=== PATIENT | male | born 1940 | race Caucasian/White ===

== ENCOUNTER → 2021-10-23 14:45 | Outpatient (CLI) | payer MEDICARE, OTHER, SELFPAY ==
[2021-10-23 16:02] LABS: Hemoglobin A1C% w Est Avg Glu 5.7 % (4.0-6.0)
== END ==
PROVIDERS: PCP Family Medicine; Referring Provider Family Medicine; Visit Provider Family Medicine
DX: R73.9 Hyperglycemia, unspecified (principal)
CPT/HCPCS: 36415; 83036

== ENCOUNTER → 2021-10-30 07:15 | Outpatient (CLI) | payer MEDICARE, OTHER, SELFPAY ==
--- NOTE | 2021-10-30 | DI.MRI.S_ITS ---
PROCEDURE: MR HEAD/BRAIN WO/W CON INDICATIONS: Malignant melanoma of scalp and neck TECHNIQUE: Noncontrast axial T1 spin echo, axial T2 fast spin echo, sagittal and axial FLAIR, coronal T2 fast spin echo, axial gradient echo, axial diffusion and ADC through the brain. After the administration of contrast, axial and coronal T1 spin echo with fat saturation through the brain. COMPARISON: None. FINDINGS: Image quality: Excellent. CSF spaces: Basal cisterns are patent. No extra-axial fluid collections. Ventricles are normal in size and shape. Brain: No midline shift. No intracranial bleeds or masses. No abnormal intracranial enhancement. There is cerebral volume loss for age. Numerous foci of T2 weighted white matter hyperintensity can be seen. The brainstem appears normal. Diffusion-weighted images demonstrate no acute ischemic insults. No chronic ischemic insults. Normal intravascular flow voids are present. Skull and face: A 7 mm enhancing scalp lesion can be seen within the left superior temporal region, as on series 13, image 146. Calvarial marrow is normal in signal. Orbits appear normal. Sinuses: Sinuses and mastoids appear clear. IMPRESSION: No intracranial masses or abnormal enhancement can be seen. Enhancing scalp lesion can be seen involving the left superior temporal region. Please correlate with the patient's known melanoma. Brain parenchymal volume loss is seen. Numerous foci of T2 weighted hyperintensity can be seen within white matter. In a patient of this age these are statistically most likely related to chronic small vessel ischemic change. Dictated by: John Escalera M.D. on 10/30/2021 at 8:58 Approved by: John Escalera M.D. on 10/30/2021 at 9:01
== END ==
PROVIDERS: PCP Family Medicine; Referring Provider Internal Medicine Hematology & Oncology; Visit Provider Internal Medicine Hematology & Oncology
DX: C43.4 Malignant melanoma of scalp and neck (principal)
CPT/HCPCS: 70553

== ENCOUNTER → 2021-12-03 13:17 | Outpatient (CLI) | payer MEDICARE, OTHER, SELFPAY ==
[2021-12-03 14:27] LABS: Influenza A - CEPHEID Flu A NEGATIVE (NEGATIVE); Influenza B - CEPHEID Flu B NEGATIVE (NEGATIVE)
[2021-12-03 14:31] LABS: COVID-19 CEPHEID PCR (VTM/NP) POSITIVE (Negative)
[2021-12-24 09:55] LABS: Thyroid Stimulating Hormone 0.659 uIU/mL (0.47-4.68)
== END ==
PROVIDERS: PCP Family Medicine; Referring Provider Internal Medicine Medical Oncology; Visit Provider Internal Medicine Medical Oncology
DX: C43.9 Malignant melanoma of skin, unspecified (principal); E03.2 Hypothyroidism due to medicaments and other exogenous substances
CPT/HCPCS: 0240U; C9803

== ENCOUNTER 2022-02-09 13:19 | Emergency (ER) | payer MEDICARE, OTHER, SELFPAY ==
[2022-02-09] VITALS (82 sets, daily range): BP systolic 82–150; BP diastolic 43–85; PULSE 51–131; RESP 0–39; TEMP 37.1; O2SAT 59–98; BMI 26.8
--- NOTE | 2022-02-09 13:49 | PC.NURSE ---
Pt is in immunotherapy of metastatic melanoma.
[2022-02-09 14:04] LABS: Add Manual Diff / Slide Review NO; Basophils Absolute Auto 100 /uL (0-100); Basophils Percent Auto 0.5 % (0-2); Eosinophils Absolute Auto 200 /uL (0-450); Eosinophils Percent Auto 1.3 % (2-4); Hematocrit 42.7 % (41-53); Hemoglobin 14.5 g/dL (13.5-17.5); Lymphocytes Absolute Auto 1200 /uL (1100-4500); Lymphocytes Percent Auto 7.1 % (25-40); Mean Corpuscular HGB Conc 34.1 % (30-36); Mean Corpuscular Hemoglobin 29.5 PG (26-34); Mean Corpuscular Volume 86.6 fL (80-100); Monocytes Absolute Auto 300 /uL (0-900); Monocytes Percent Auto 2.1 % (3-14); Neutrophils Absolute Auto 14500 /uL (1500-7000); Platelet Count 272 X10^3/uL (150-400); Red Blood Cell Count 4.93 X10^6/uL (4.5-5.9); Red Cell Distribution Width 14.3 % (11.6-14.8); White Blood Cell Count 16.3 X10^3/uL (4.5-11.0)
[2022-02-09 14:21] LABS: Alanine Aminotransferase 372 IU/L (<50); Albumin 4.2 g/dL (3.5-5.0); Albumin Globulin Ratio 1.2 (1.0-2.8); Alkaline Phosphatase 362 U/L (38-126); Aspartate Aminotransferase 302 IU/L (17-59); BUN Creatinine Ratio 19.1 (6-22); Bilirubin Total 4.5 mg/dL (0.2-1.3); Blood Urea Nitrogen 18 mg/dL (9-20); Calcium 9.5 mg/dL (8.4-10.2); Carbon Dioxide 28 mmol/L (22-32); Chloride 92 mmol/L (98-107); Estimated Glomerular Filt Rate > 60 mL/min (>60); Globulin 3.4 g/dL (1.7-4.1); Glucose 98 mg/dL (80-110); HEMOLYSIS < 15 (0-50); Sodium 132 mmol/L (137-145); Total Protein 7.6 g/dL (6.3-8.2)
[2022-02-09 14:41] LABS: Lipase 27218 U/L (23-300)
--- NOTE | 2022-02-09 14:56 | DI.MRI.S_ITS ---
PROCEDURE: MR ABDOMEN WO CON INDICATIONS: elevated bili with pancreatitis TECHNIQUE: Coronal HASTE through the abdomen, axial 2-D FLASH in- and [id number], and breath-hold T2 FSE with fat saturation through the biliary system and pancreas. Oblique coronal and axial thin-slice HASTE, radial thick-slab HASTE centered on the extrahepatic bile ducts. COMPARISON: [facility], [place], [place] PET CT FUSION WHOLE BODY, 10/08/2021, 10:06. [facility], CT, CT CHEST ABDOMEN PELVIS WITH CONTRAST, 09/08/2021, 10:21. [facility], [place], US ABDOMEN LIMITED, 02/09/2022, 15:35. FINDINGS: Image quality: There is motion artifact limiting evaluation. Pancreas and biliary system: There is peripancreatic edema and fluid along the pancreatic head and uncinate process as well as the pancreatic body consistent with acute pancreatitis. Evaluation for necrosis limited in the absence of intravenous contrast. No pancreatic duct dilatation. No discrete peripancreatic fluid collections. There is intra and extrahepatic biliary ductal dilatation, with the common bile duct measuring up to 1.1 cm. The duct tapers distally to the ampulla Vater where there is a small oval low signal intensity filling defect consistent with an obstructing common duct stone measuring up to 0.4 cm. Numerous gallstones are demonstrated within the gallbladder with mild gallbladder wall thickening. There is a small amount amount of pericholecystic fluid. Cholecystitis cannot be excluded. Other solid organs: Noncontrast evaluation of the liver demonstrates 2 small cysts within the right hepatic lobe. Spleen is normal in size. No adrenal nodules. Kidneys demonstrate no hydronephrosis. Nodes and vessels: No retroperitoneal or mesenteric adenopathy by size criteria. Aorta and inferior vena cava are normal in size. Bowel and peritoneum: Visualized bowel loops are normal in caliber. There is a small amount of intraperitoneal free fluid. Lung bases: No basal pleural effusions. Heart size is normal. There is a small hiatal hernia. Bones and soft tissues: No ventral hernias. Bone marrow is of normal overall signal. IMPRESSION: 1. Peripancreatic edema and fluid consistent with acute pancreatitis, likely interstitial edematous pancreatitis. Evaluation for necrosis is limited in the absence of intravenous contrast. No pancreatic duct dilatation or acute peripancreatic fluid collections. 2. Biliary ductal dilatation with an obstructing stone demonstrated at the ampulla of Vater. 3. Cholelithiasis with gallbladder wall thickening and pericholecystic fluid suspicious for acute cholecystitis. Dictated by: Cornelius Georges M.D. on 02/09/2022 at 20:21 Approved by: Cornelius Georges M.D. on 02/09/2022 at 20:29
--- NOTE | 2022-02-09 14:56 | DI.US.S_ITS ---
PROCEDURE: US ABDOMEN LIMITED INDICATIONS: RIGHT UPPER QUADRANT PAIN AND NAUSEA TECHNIQUE: Real-time scanning was performed of the abdominal and retroperitoneal organs, with image documentation. COMPARISON: None. FINDINGS: Liver: Liver is normal in size and homogeneous in echotexture. Gallbladder: The gallbladder wall measures 2 mm in diameter. Multiple mobile stones are present within the gallbladder fundus. No pericholecystic fluid. Biliary ducts: There is intrahepatic biliary ductal dilatation. The common bile duct measures up to 1.2 cm in diameter. Pancreas: The pancreas is poorly visualized. IMPRESSION: Cholelithiasis. Although no discrete calculi are visualized within the biliary tree, there is intra and extrahepatic biliary ductal dilatation raising the suspicion for choledocholithiasis. No gallbladder wall thickening or pericholecystic fluid to suggest acute cholecystitis. Dictated by: Radha Rosales M.D. on 02/09/2022 at 16:59 Approved by: Radha Rosales M.D. on 02/09/2022 at 17:02
[2022-02-09 15:11] LABS: Creatine Kinase 58 U/L (55-170); Lactate (Lactic Acid) 1.9 mmol/L (0.7-2.1)
--- NOTE | 2022-02-09 15:17 | ED.ABDPAIN ---
HPI - Abdominal Pain <Leslee Pop DO - Last Filed: 02/16/22 19:05> General Chief Complaint: Abdominal Pain Stated Complaint: Upper ABD pain, Loss of energy, Nausea Time Seen by Provider: 02/09/22 15:18 Source: patient Mode of arrival: Ambulatory History of Present Illness HPI narrative: Patient is an 81-year-old male history of melanoma currently being treated with immunotherapy, atrial fibrillation on Pradaxa presenting today with abdominal pain. He says it started abruptly last night but has gotten significantly worse. He vomited once is in the waiting room. He says that occasionally radiates up into his chest. He really denies any shortness of breath. No prior abdominal surgeries. He does describe as stabbing pain in epigastric region Related Data Home Medications Medication Instructions Recorded Confirmed atenolol 50 mg tablet 50 mg PO DAILY 10/23/21 02/16/22 dabigatran etexilate 150 mg 150 mg PO BID 10/23/21 02/16/22 capsule (Pradaxa) lisinopril 10 10 tab PO DAILY 10/23/21 02/16/22 mg-hydrochlorothiazide 12.5 mg tablet sildenafil 25 mg tablet 20 mg PO DAILY PRN Sexual Activity 10/23/21 02/16/22 Previous Rx's Medication Instructions Recorded atorvastatin 40 mg tablet 40 mg PO DAILY #90 tabs 10/23/21 furosemide 20 mg tablet (Lasix) See Rx Instructions PO DAILY #20 02/16/22 tabs pantoprazole 40 mg tablet,delayed 40 mg PO DAILY #90 tabs 02/16/22 release Allergies Allergy/AdvReac Type Severity Reaction Status Date / Time No Known Drug Allergies Allergy Verified 02/09/22 13:46 Review of Systems <Leslee Pop DO - Last Filed: 02/16/22 19:05> Review of Systems Narrative: GENERAL: Denies chills, fatigue, malaise, fever, sweats, travel HEENT: Denies sinus pain, ear pain, sore throat, difficulty swallowing, neck pain RESPIRATORY: Denies dyspnea, cough, wheezing, hemoptysis, sputum. CARDIOVASCULAR: Denies chest pain, palpitations, orthopnea, edema GASTROINTESTINAL: See HPI : Denies dysuria, frequency, incontinence, hematuria, urinary retention, flank pain. MUSCULOSKELETAL: Denies weakness, joint pain, or bony pain SKIN: No rash, no erythema, no pruritus NEUROLOGIC: Denies weakness, dizziness, headache, numbness, change in speech, confusion PSYCHIATRIC: No concerning psychosocial issues. 12 point review of systems is negative except for those stated above and HPI Patient History <Leslee Pop DO - Last Filed: 02/16/22 19:05> Medical History Hyperlipidemia Hypertension Metastatic melanoma Social History Smoking Status: Never smoker Smoking Status: Never smoker alcohol intake frequency: 0-2 drinks per day Substance Use Type: does not use Exam <Leslee Pop DO - Last Filed: 02/16/22 19:05> Initial Vital Signs Initial Vital Signs: Vital Signs Temperature 98.8 F 02/09/22 13:41 Pulse Rate 81 02/09/22 13:41 Respiratory Rate 16 02/09/22 13:41 Blood Pressure 113/58 L 02/09/22 13:41 Pulse Oximetry 94 02/09/22 13:41 Oxygen Delivery Method 02/09/22 13:41 GENERAL: Alert 81-year-old male appears mildly uncomfortable HEENT: Head atraumatic,EOMI, pupils reactive, face symmetric, moist mucous membranes CARDIOVASCULAR: Regular rate and rhythm without murmurs, rubs or gallops. RESPIRATORY: Breath sounds equal bilaterally, no wheezes rales or rhonchi. ABDOMEN: Soft, tender epigastric pain minimal right upper quadrant EXTREMITIES: Normal range of motion, no clubbing or edema. Neurovascularly intact NEUROLOGICAL: Alert and oriented x4.Normal gait and speech. SKIN: Warm, dry, no laceration, no petechiae, no rashes or lesions. <Prem Mckeon DO - Last Filed: 02/12/22 13:00> Initial Vital Signs Initial Vital Signs: Vital Signs Temperature 98.8 F 02/09/22 13:41 Pulse Rate 81 02/09/22 13:41 Respiratory Rate 16 02/09/22 13:41 Blood Pressure 113/58 L 02/09/22 13:41 Pulse Oximetry 94 02/09/22 13:41 Oxygen Delivery Method 02/09/22 13:41 <Tran Nieves MD - Last Filed: 02/11/22 17:05> Initial Vital Signs Initial Vital Signs: Vital Signs Temperature 98.8 F 02/09/22 13:41 Pulse Rate 81 02/09/22 13:41 Respiratory Rate 16 02/09/22 13:41 Blood Pressure 113/58 L 02/09/22 13:41 Pulse Oximetry 94 02/09/22 13:41 Oxygen Delivery Method 02/09/22 13:41 Course <Leslee Pop DO - Last Filed: 02/16/22 19:05> Orders Ordered: Discontinued Medications Diltiazem HCl (Diltiazem 5 Mg/Ml Sdv) 10 mg IV NOW ONE Stop: 02/09/22 16:07 Last Admin: 02/09/22 16:10 Dose: 10 mg Documented By: NR Diphenhydramine HCl (Diphenhydramine 50 Mg/Ml Vial) 25 mg IV NOW ONE Stop: 02/11/22 04:40 Last Admin: 02/11/22 04:41 Dose: 25 mg Documented By: NOA Enoxaparin Sodium (Enoxaparin 40 Mg/0.4 Ml Syringe) 40 mg SUBCUT DAILY [facility] Enoxaparin Sodium (Enoxaparin 40 Mg/0.4 Ml Syringe) 85 mg 1 mg/kg (85 mg) SUBCUT BID KAMI Stop: 02/10/22 21:00 Enoxaparin Sodium (Enoxaparin 100 Mg/Ml Syringe) 85 mg SUBCUT BID [facility] Last Admin: 02/11/22 09:03 Dose: 85 mg Documented By: Admin: 02/10/22 23:22 Dose: 85 mg Documented By: PARIS Fentanyl (Fentanyl 100 Mcg/2 Ml Inj) 50 mcg IV NOW ONE Stop: 02/11/22 06:16 Last Admin: 02/11/22 06:19 Dose: 50 mcg Documented By: PARIS Hydromorphone HCl (Hydromorphone 0.5 Mg Inj) 0.5 mg IV Q15MIN PRN PRN Reason: Pain, Sodium Chloride (Normal Saline 0.9%) 1,000 mls @ 1,000 mls/hr IV BOLUS ONE Stop: 02/09/22 15:59 Last Infusion: 02/09/22 17:27 Dose: 0 mls/hr Documented By: Admin: 02/09/22 15:23 Dose: 1,000 mls/hr Documented By: NR Piperacillin Sod/Tazobactam (Sod 4.5 gm/ Sodium Chloride) 100 mls @ 200 mls/hr IV NOW ONE Stop: 02/09/22 18:10 Last Infusion: 02/09/22 20:30 Dose: 0 mls/hr Documented By: Admin: 02/09/22 18:49 Dose: 200 mls/hr Documented By: GONZALO Sodium Chloride (Normal Saline 0.9%) 2,544.66 mls @ 848.22 mls/hr 30 ml/kg infuse over 3 hr (2544.66 ml) IV NOW ONE Stop: 02/09/22 21:09 Last Infusion: 02/10/22 08:18 Dose: 0 mls/hr Documented By: Admin: 02/09/22 18:50 Dose: 848.22 mls/hr Documented By: GONZALO Piperacillin Sod/Tazobactam (Sod 3.375 gm/ Sodium Chloride) 100 mls @ 25 mls/hr IV Q8H KAMI Last Infusion: 02/11/22 16:05 Dose: 0 mls/hr Documented By: Admin: 02/11/22 11:59 Dose: 25 mls/hr Documented By: Infusion: 02/11/22 09:02 Dose: 0 mls/hr Documented By: Admin: 02/11/22 04:42 Dose: 25 mls/hr Documented By: Infusion: 02/11/22 00:21 Dose: 0 mls/hr Documented By: Admin: 02/10/22 19:51 Dose: 25 mls/hr Documented By: Infusion: 02/10/22 15:40 Dose: 0 mls/hr Documented By: Admin: 02/10/22 11:41 Dose: 25 mls/hr Documented By: Infusion: 02/10/22 08:14 Dose: 0 mls/hr Documented By: Admin: 02/10/22 03:43 Dose: 25 mls/hr Documented By: PARIS Heparin Sodium/Dextrose (Heparin Drip) 25,000 unit in 500 mls @ 20 mls/hr IV CONT KAMI; Protocol Last Titration: 02/10/22 17:25 Dose: 0 units/hr, 0 mls/hr Documented By: AMIsaac Admin: 02/10/22 09:51 Dose: 1,000 units/hr, 20 mls/hr Documented By: NR Sodium Chloride (Normal Saline 0.9%) 1,000 mls @ 150 mls/hr IV CONT KAMI Last Infusion: 02/11/22 11:01 Dose: 0 mls/hr Documented By: Admin: 02/11/22 04:49 Dose: 150 mls/hr Documented By: Infusion: 02/10/22 18:32 Dose: 0 mls/hr Documented By: Infusion: 02/10/22 14:24 Dose: 150 mls/hr Documented By: Admin: 02/10/22 11:42 Dose: 150 mls/hr Documented By: NR Sodium Chloride (Normal Saline 0.9%) 1,000 mls @ 1,000 mls/hr IV BOLUS ONE Stop: 02/10/22 15:08 Last Infusion: 02/10/22 16:30 Dose: 0 mls/hr Documented By: FLFabiola Admin: 02/10/22 14:25 Dose: 1,000 mls/hr Documented By: NR Sodium Chloride (Normal Saline 0.9%) 1,000 mls @ 150 mls/hr IV CONT KAMI Last Admin: 02/11/22 07:25 Dose: Not Given Documented By: NIDIA Lorazepam (Lorazepam 2 Mg/Ml Inj) 0.5 mg IV NOW ONE Stop: 02/09/22 16:04 Last Admin: 02/09/22 17:22 Dose: 0.5 mg Documented By: GONZALO Morphine Sulfate (Morphine 2 Mg/Ml Inj) 2 mg IV NOW ONE Stop: 02/09/22 15:30 Last Admin: 02/09/22 15:35 Dose: 2 mg Documented By: GONZALO Morphine Sulfate (Morphine 2 Mg/Ml Inj) 2 mg IV NOW ONE Stop: 02/10/22 14:10 Last Admin: 02/10/22 14:41 Dose: 2 mg Documented By: GONZALO Ondansetron HCl (Ondansetron 4 Mg/2 Ml Inj) 4 mg IV NOW ONE Stop: 02/09/22 15:18 Last Admin: 02/09/22 15:22 Dose: 4 mg Documented By: GONZALO Vital Signs Vital signs: Vital Signs - 8 hr 02/11/22 09:15 02/11/22 09:30 02/11/22 09:45 Temperature Pulse Rate 92 H 92 H 96 H Respiratory Rate 15 17 23 Blood Pressure Pulse Oximetry Oxygen Delivery Method 02/11/22 10:00 02/11/22 10:00 02/11/22 10:15 Temperature Pulse Rate 81 87 Respiratory Rate 18 18 Blood Pressure 126/61 Pulse Oximetry Oxygen Delivery Method 02/11/22 10:30 02/11/22 10:45 02/11/22 11:00 Temperature Pulse Rate 89 79 89 Respiratory Rate 17 17 22 Blood Pressure Pulse Oximetry Oxygen Delivery Method 02/11/22 11:15 02/11/22 11:27 02/11/22 11:27 Temperature 97.5 F L Pulse Rate 90 97 H Respiratory Rate 16 26 H Blood Pressure 112/76 Pulse Oximetry 95 Oxygen Delivery Method 02/11/22 11:46 02/11/22 12:00 02/11/22 12:15 Temperature Pulse Rate 92 H 88 87 Respiratory Rate 33 H 29 H 18 Blood Pressure Pulse Oximetry 94 97 96 Oxygen Delivery Method 02/11/22 12:30 02/11/22 12:45 02/11/22 13:00 Temperature Pulse Rate 86 94 H 93 H Respiratory Rate 17 41 H 14 Blood Pressure Pulse Oximetry 96 96 95 Oxygen Delivery Method Room Air 02/11/22 13:15 02/11/22 13:30 02/11/22 13:45 Temperature Pulse Rate 89 87 98 H Respiratory Rate 14 16 32 H Blood Pressure Pulse Oximetry 96 96 96 Oxygen Delivery Method 02/11/22 14:00 02/11/22 14:15 02/11/22 14:30 Temperature Pulse Rate 90 91 H 88 Respiratory Rate 16 19 15 Blood Pressure Pulse Oximetry 96 97 96 Oxygen Delivery Method 02/11/22 14:45 02/11/22 15:00 02/11/22 15:15 Temperature Pulse Rate 89 89 92 H Respiratory Rate 16 17 26 H Blood Pressure Pulse Oximetry 96 96 98 Oxygen Delivery Method 02/11/22 15:30 02/11/22 15:45 02/11/22 15:58 Temperature Pulse Rate 82 91 H 91 H Respiratory Rate 18 17 24 Blood Pressure Pulse Oximetry 98 98 98 Oxygen Delivery Method 02/11/22 15:58 Temperature 98.6 F Pulse Rate Respiratory Rate Blood Pressure 149/82 H Pulse Oximetry Oxygen Delivery Method <Prem Mckeon, - Last Filed: 02/12/22 13:00> Orders Ordered: Discontinued Medications Diltiazem HCl (Diltiazem 5 Mg/Ml Sdv) 10 mg IV NOW ONE Stop: 02/09/22 16:07 Last Admin: 02/09/22 16:10 Dose: 10 mg Documented By: NR Diphenhydramine HCl (Diphenhydramine 50 Mg/Ml Vial) 25 mg IV NOW ONE Stop: 02/11/22 04:40 Last Admin: 02/11/22 04:41 Dose: 25 mg Documented By: NOA Enoxaparin Sodium (Enoxaparin 40 Mg/0.4 Ml Syringe) 40 mg SUBCUT DAILY [facility] Enoxaparin Sodium (Enoxaparin 40 Mg/0.4 Ml Syringe) 85 mg 1 mg/kg (85 mg) SUBCUT BID [facility] Stop: 02/10/22 21:00 Enoxaparin Sodium (Enoxaparin 100 Mg/Ml Syringe) 85 mg SUBCUT BID [facility] Last Admin: 02/11/22 09:03 Dose: 85 mg Documented By: Admin: 02/10/22 23:22 Dose: 85 mg Documented By: PARIS Fentanyl (Fentanyl 100 Mcg/2 Ml Inj) 50 mcg IV NOW ONE Stop: 02/11/22 06:16 Last Admin: 02/11/22 06:19 Dose: 50 mcg Documented By: PARIS Hydromorphone HCl (Hydromorphone 0.5 Mg Inj) 0.5 mg IV Q15MIN PRN PRN Reason: Pain, Sodium Chloride (Normal Saline 0.9%) 1,000 mls @ 1,000 mls/hr IV BOLUS ONE Stop: 02/09/22 15:59 Last Infusion: 02/09/22 17:27 Dose: 0 mls/hr Documented By: Admin: 02/09/22 15:23 Dose: 1,000 mls/hr Documented By: GONZALO Piperacillin Sod/Tazobactam (Sod 4.5 gm/ Sodium Chloride) 100 mls @ 200 mls/hr IV NOW ONE Stop: 02/09/22 18:10 Last Infusion: 02/09/22 20:30 Dose: 0 mls/hr Documented By: Admin: 02/09/22 18:49 Dose: 200 mls/hr Documented By: GONAZLO Sodium Chloride (Normal Saline 0.9%) 2,544.66 mls @ 848.22 mls/hr 30 ml/kg infuse over 3 hr (2544.66 ml) IV NOW ONE Stop: 02/09/22 21:09 Last Infusion: 02/10/22 08:18 Dose: 0 mls/hr Documented By: Admin: 02/09/22 18:50 Dose: 848.22 mls/hr Documented By: GONZALO Piperacillin Sod/Tazobactam (Sod 3.375 gm/ Sodium Chloride) 100 mls @ 25 mls/hr IV Q8H KAMI Last Infusion: 02/11/22 16:05 Dose: 0 mls/hr Documented By: Admin: 02/11/22 11:59 Dose: 25 mls/hr Documented By: Infusion: 02/11/22 09:02 Dose: 0 mls/hr Documented By: Admin: 02/11/22 04:42 Dose: 25 mls/hr Documented By: Infusion: 02/11/22 00:21 Dose: 0 mls/hr Documented By: Admin: 02/10/22 19:51 Dose: 25 mls/hr Documented By: Infusion: 02/10/22 15:40 Dose: 0 mls/hr Documented By: Admin: 02/10/22 11:41 Dose: 25 mls/hr Documented By: Infusion: 02/10/22 08:14 Dose: 0 mls/hr Documented By: Admin: 02/10/22 03:43 Dose: 25 mls/hr Documented By: PARIS Heparin Sodium/Dextrose (Heparin Drip) 25,000 unit in 500 mls @ 20 mls/hr IV CONT KAMI; Protocol Last Titration: 02/10/22 17:25 Dose: 0 units/hr, 0 mls/hr Documented By: Admin: 02/10/22 09:51 Dose: 1,000 units/hr, 20 mls/hr Documented By: GONZALO Sodium Chloride (Normal Saline 0.9%) 1,000 mls @ 150 mls/hr IV CONT KAMI Last Infusion: 02/11/22 11:01 Dose: 0 mls/hr Documented By: Admin: 02/11/22 04:49 Dose: 150 mls/hr Documented By: Infusion: 02/10/22 18:32 Dose: 0 mls/hr Documented By: Infusion: 02/10/22 14:24 Dose: 150 mls/hr Documented By: Admin: 02/10/22 11:42 Dose: 150 mls/hr Documented By: NR Sodium Chloride (Normal Saline 0.9%) 1,000 mls @ 1,000 mls/hr IV BOLUS ONE Stop: 02/10/22 15:08 Last Infusion: 02/10/22 16:30 Dose: 0 mls/hr Documented By: Admin: 02/10/22 14:25 Dose: 1,000 mls/hr Documented By: NR Sodium Chloride (Normal Saline 0.9%) 1,000 mls @ 150 mls/hr IV CONT KAMI Last Admin: 02/11/22 07:25 Dose: Not Given Documented By: NIDIA Lorazepam (Lorazepam 2 Mg/Ml Inj) 0.5 mg IV NOW ONE Stop: 02/09/22 16:04 Last Admin: 02/09/22 17:22 Dose: 0.5 mg Documented By: GONZALO Morphine Sulfate (Morphine 2 Mg/Ml Inj) 2 mg IV NOW ONE Stop: 02/09/22 15:30 Last Admin: 02/09/22 15:35 Dose: 2 mg Documented By: GONZALO Morphine Sulfate (Morphine 2 Mg/Ml Inj) 2 mg IV NOW ONE Stop: 02/10/22 14:10 Last Admin: 02/10/22 14:41 Dose: 2 mg Documented By: NR Ondansetron HCl (Ondansetron 4 Mg/2 Ml Inj) 4 mg IV NOW ONE Stop: 02/09/22 15:18 Last Admin: 02/09/22 15:22 Dose: 4 mg Documented By: GONZALO Vital Signs Vital signs: Vital Signs - 8 hr 02/11/22 09:15 02/11/22 09:30 02/11/22 09:45 Temperature Pulse Rate 92 H 92 H 96 H Respiratory Rate 15 17 23 Blood Pressure Pulse Oximetry Oxygen Delivery Method 02/11/22 10:00 02/11/22 10:00 02/11/22 10:15 Temperature Pulse Rate 81 87 Respiratory Rate 18 18 Blood Pressure 126/61 Pulse Oximetry Oxygen Delivery Method 02/11/22 10:30 02/11/22 10:45 02/11/22 11:00 Temperature Pulse Rate 89 79 89 Respiratory Rate 17 17 22 Blood Pressure Pulse Oximetry Oxygen Delivery Method 02/11/22 11:15 02/11/22 11:27 02/11/22 11:27 Temperature 97.5 F L Pulse Rate 90 97 H Respiratory Rate 16 26 H Blood Pressure 112/76 Pulse Oximetry 95 Oxygen Delivery Method 02/11/22 11:46 02/11/22 12:00 02/11/22 12:15 Temperature Pulse Rate 92 H 88 87 Respiratory Rate 33 H 29 H 18 Blood Pressure Pulse Oximetry 94 97 96 Oxygen Delivery Method 02/11/22 12:30 02/11/22 12:45 02/11/22 13:00 Temperature Pulse Rate 86 94 H 93 H Respiratory Rate 17 41 H 14 Blood Pressure Pulse Oximetry 96 96 95 Oxygen Delivery Method Room Air 02/11/22 13:15 02/11/22 13:30 02/11/22 13:45 Temperature Pulse Rate 89 87 98 H Respiratory Rate 14 16 32 H Blood Pressure Pulse Oximetry 96 96 96 Oxygen Delivery Method 02/11/22 14:00 02/11/22 14:15 02/11/22 14:30 Temperature Pulse Rate 90 91 H 88 Respiratory Rate 16 19 15 Blood Pressure Pulse Oximetry 96 97 96 Oxygen Delivery Method 02/11/22 14:45 02/11/22 15:00 02/11/22 15:15 Temperature Pulse Rate 89 89 92 H Respiratory Rate 16 17 26 H Blood Pressure Pulse Oximetry 96 96 98 Oxygen Delivery Method 02/11/22 15:30 02/11/22 15:45 02/11/22 15:58 Temperature Pulse Rate 82 91 H 91 H Respiratory Rate 18 17 24 Blood Pressure Pulse Oximetry 98 98 98 Oxygen Delivery Method 02/11/22 15:58 Temperature 98.6 F Pulse Rate Respiratory Rate Blood Pressure 149/82 H Pulse Oximetry Oxygen Delivery Method <Tran Nieves MD - Last Filed: 02/11/22 17:05> Orders Ordered: Discontinued Medications Diltiazem HCl (Diltiazem 5 Mg/Ml Sdv) 10 mg IV NOW ONE Stop: 02/09/22 16:07 Last Admin: 02/09/22 16:10 Dose: 10 mg Documented By: GONZALO Diphenhydramine HCl (Diphenhydramine 50 Mg/Ml Vial) 25 mg IV NOW ONE Stop: 02/11/22 04:40 Last Admin: 02/11/22 04:41 Dose: 25 mg Documented By: NOA Enoxaparin Sodium (Enoxaparin 40 Mg/0.4 Ml Syringe) 40 mg SUBCUT DAILY [facility] Enoxaparin Sodium (Enoxaparin 40 Mg/0.4 Ml Syringe) 85 mg 1 mg/kg (85 mg) SUBCUT BID [facility] Stop: 02/10/22 21:00 Enoxaparin Sodium (Enoxaparin 100 Mg/Ml Syringe) 85 mg SUBCUT BID [facility] Last Admin: 02/11/22 09:03 Dose: 85 mg Documented By: Admin: 02/10/22 23:22 Dose: 85 mg Documented By: PARIS Fentanyl (Fentanyl 100 Mcg/2 Ml Inj) 50 mcg IV NOW ONE Stop: 02/11/22 06:16 Last Admin: 02/11/22 06:19 Dose: 50 mcg Documented By: PARIS Hydromorphone HCl (Hydromorphone 0.5 Mg Inj) 0.5 mg IV Q15MIN PRN PRN Reason: Pain, Sodium Chloride (Normal Saline 0.9%) 1,000 mls @ 1,000 mls/hr IV BOLUS ONE Stop: 02/09/22 15:59 Last Infusion: 02/09/22 17:27 Dose: 0 mls/hr Documented By: Admin: 02/09/22 15:23 Dose: 1,000 mls/hr Documented By: GONZALO Piperacillin Sod/Tazobactam (Sod 4.5 gm/ Sodium Chloride) 100 mls @ 200 mls/hr IV NOW ONE Stop: 02/09/22 18:10 Last Infusion: 02/09/22 20:30 Dose: 0 mls/hr Documented By: Admin: 02/09/22 18:49 Dose: 200 mls/hr Documented By: GONZALO Sodium Chloride (Normal Saline 0.9%) 2,544.66 mls @ 848.22 mls/hr 30 ml/kg infuse over 3 hr (2544.66 ml) IV NOW ONE Stop: 02/09/22 21:09 Last Infusion: 02/10/22 08:18 Dose: 0 mls/hr Documented By: Admin: 02/09/22 18:50 Dose: 848.22 mls/hr Documented By: GONZALO Piperacillin Sod/Tazobactam (Sod 3.375 gm/ Sodium Chloride) 100 mls @ 25 mls/hr IV Q8H KAMI Last Infusion: 02/11/22 16:05 Dose: 0 mls/hr Documented By: Admin: 02/11/22 11:59 Dose: 25 mls/hr Documented By: Infusion: 02/11/22 09:02 Dose: 0 mls/hr Documented By: Admin: 02/11/22 04:42 Dose: 25 mls/hr Documented By: Infusion: 02/11/22 00:21 Dose: 0 mls/hr Documented By: Admin: 02/10/22 19:51 Dose: 25 mls/hr Documented By: Infusion: 02/10/22 15:40 Dose: 0 mls/hr Documented By: Admin: 02/10/22 11:41 Dose: 25 mls/hr Documented By: Infusion: 02/10/22 08:14 Dose: 0 mls/hr Documented By: Admin: 02/10/22 03:43 Dose: 25 mls/hr Documented By: PARIS Heparin Sodium/Dextrose (Heparin Drip) 25,000 unit in 500 mls @ 20 mls/hr IV CONT KAMI; Protocol Last Titration: 02/10/22 17:25 Dose: 0 units/hr, 0 mls/hr Documented By: AMIsaac Admin: 02/10/22 09:51 Dose: 1,000 units/hr, 20 mls/hr Documented By: GONZALO Sodium Chloride (Normal Saline 0.9%) 1,000 mls @ 150 mls/hr IV CONT KAMI Last Infusion: 02/11/22 11:01 Dose: 0 mls/hr Documented By: Admin: 02/11/22 04:49 Dose: 150 mls/hr Documented By: Infusion: 02/10/22 18:32 Dose: 0 mls/hr Documented By: Infusion: 02/10/22 14:24 Dose: 150 mls/hr Documented By: Admin: 02/10/22 11:42 Dose: 150 mls/hr Documented By: GONZALO Sodium Chloride (Normal Saline 0.9%) 1,000 mls @ 1,000 mls/hr IV BOLUS ONE Stop: 02/10/22 15:08 Last Infusion: 02/10/22 16:30 Dose: 0 mls/hr Documented By: Admin: 02/10/22 14:25 Dose: 1,000 mls/hr Documented By: NR Sodium Chloride (Normal Saline 0.9%) 1,000 mls @ 150 mls/hr IV CONT KAMI Last Admin: 02/11/22 07:25 Dose: Not Given Documented By: NIDIA Lorazepam (Lorazepam 2 Mg/Ml Inj) 0.5 mg IV NOW ONE Stop: 02/09/22 16:04 Last Admin: 02/09/22 17:22 Dose: 0.5 mg Documented By: NR Morphine Sulfate (Morphine 2 Mg/Ml Inj) 2 mg IV NOW ONE Stop: 02/09/22 15:30 Last Admin: 02/09/22 15:35 Dose: 2 mg Documented By: NR Morphine Sulfate (Morphine 2 Mg/Ml Inj) 2 mg IV NOW ONE Stop: 02/10/22 14:10 Last Admin: 02/10/22 14:41 Dose: 2 mg Documented By: NR Ondansetron HCl (Ondansetron 4 Mg/2 Ml Inj) 4 mg IV NOW ONE Stop: 02/09/22 15:18 Last Admin: 02/09/22 15:22 Dose: 4 mg Documented By: NR Vital Signs Vital signs: Vital Signs - 8 hr 02/11/22 09:15 02/11/22 09:30 02/11/22 09:45 Temperature Pulse Rate 92 H 92 H 96 H Respiratory Rate 15 17 23 Blood Pressure Pulse Oximetry Oxygen Delivery Method 02/11/22 10:00 02/11/22 10:00 02/11/22 10:15 Temperature Pulse Rate 81 87 Respiratory Rate 18 18 Blood Pressure 126/61 Pulse Oximetry Oxygen Delivery Method 02/11/22 10:30 02/11/22 10:45 02/11/22 11:00 Temperature Pulse Rate 89 79 89 Respiratory Rate 17 17 22 Blood Pressure Pulse Oximetry Oxygen Delivery Method 02/11/22 11:15 02/11/22 11:27 02/11/22 11:27 Temperature 97.5 F L Pulse Rate 90 97 H Respiratory Rate 16 26 H Blood Pressure 112/76 Pulse Oximetry 95 Oxygen Delivery Method 02/11/22 11:46 02/11/22 12:00 02/11/22 12:15 Temperature Pulse Rate 92 H 88 87 Respiratory Rate 33 H 29 H 18 Blood Pressure Pulse Oximetry 94 97 96 Oxygen Delivery Method 02/11/22 12:30 02/11/22 12:45 02/11/22 13:00 Temperature Pulse Rate 86 94 H 93 H Respiratory Rate 17 41 H 14 Blood Pressure Pulse Oximetry 96 96 95 Oxygen Delivery Method Room Air 02/11/22 13:15 02/11/22 13:30 02/11/22 13:45 Temperature Pulse Rate 89 87 98 H Respiratory Rate 14 16 32 H Blood Pressure Pulse Oximetry 96 96 96 Oxygen Delivery Method 02/11/22 14:00 02/11/22 14:15 02/11/22 14:30 Temperature Pulse Rate 90 91 H 88 Respiratory Rate 16 19 15 Blood Pressure Pulse Oximetry 96 97 96 Oxygen Delivery Method 02/11/22 14:45 02/11/22 15:00 02/11/22 15:15 Temperature Pulse Rate 89 89 92 H Respiratory Rate 16 17 26 H Blood Pressure Pulse Oximetry 96 96 98 Oxygen Delivery Method 02/11/22 15:30 02/11/22 15:45 02/11/22 15:58 Temperature Pulse Rate 82 91 H 91 H Respiratory Rate 18 17 24 Blood Pressure Pulse Oximetry 98 98 98 Oxygen Delivery Method 02/11/22 15:58 Temperature 98.6 F Pulse Rate Respiratory Rate Blood Pressure 149/82 H Pulse Oximetry Oxygen Delivery Method MDM - Abdominal Pain <Leslee Pop, DO - Last Filed: 02/16/22 19:05> Lab Data Result diagrams: 02/11/22 06:00 02/11/22 06:00 Labs: Lab Results 02/09/22 02/09/22 02/09/22 Range/Units 12:35 12:35 13:54 WBC 16.3 H (4.5-11.0) X10^3/uL RBC 4.93 (4.5-5.9) X10^6/uL Hgb 14.5 (13.5-17.5) g/dL Hct 42.7 (41-53) % MCV 86.6 (80-100) fL MCH 29.5 (26-34) PG MCHC 34.1 (30-36) % RDW 14.3 (11.6-14.8) % Plt Count 272 (150-400) X10^3/uL Neut % (Auto) 89.0 H (50-75) % Lymph % (Auto) 7.1 L (25-40) % Cobb % (Auto) 2.1 L (3-14) % Eos % (Auto) 1.3 L (2-4) % Baso % (Auto) 0.5 (0-2) % Neut # (Auto) 32992 H (9952-2020) /uL Lymph # (Auto) 1200 (5906-0599) /uL Cobb # (Auto) 300 (0-900) /uL Eos # (Auto) 200 (0-450) /uL Baso # (Auto) 100 (0-100) /uL APTT (26-36) SECONDS Sodium 132 L (137-145) mmol/L Potassium 4.0 (3.4-5.1) mmol/L Chloride 92 L (98-107) mmol/L Carbon Dioxide 28 (22-32) mmol/L BUN 18 (9-20) mg/dL Creatinine 0.94 (0.66-1.25) mg/dL Estimated GFR > 60 (>60) mL/min BUN/Creatinine Ratio 19.1 (6-22) Glucose 98 (80-110) mg/dL Lactate (0.7-2.1) mmol/L Calcium 9.5 (8.4-10.2) mg/dL Total Bilirubin 4.5 H (0.2-1.3) mg/dL AST 302 H (17-59) IU/L ALT 372 H (<50) IU/L Alkaline Phosphatase 362 H (38-126) U/L Total Creatine Kinase 58 (55-170) U/L CK-MB (CK-2) TNP CK-MB (CK-2) Rel Index TNP Troponin I < 0.012 (0.01-0.034) ng/mL Total Protein 7.6 (6.3-8.2) g/dL Albumin 4.2 (3.5-5.0) g/dL Globulin 3.4 (1.7-4.1) g/dL Albumin/Globulin Ratio 1.2 (1.0-2.8) Lipase 14241 H (23-300) U/L SARS-CoV-2 (PCR) (Negative) 02/09/22 02/09/22 02/09/22 Range/Units 13:54 16:57 18:40 WBC (4.5-11.0) X10^3/uL RBC (4.5-5.9) X10^6/uL Hgb (13.5-17.5) g/dL Hct (41-53) % MCV (80-100) fL MCH (26-34) PG MCHC (30-36) % RDW (11.6-14.8) % Plt Count (150-400) X10^3/uL Neut % (Auto) (50-75) % Lymph % (Auto) (25-40) % Cobb % (Auto) (3-14) % Eos % (Auto) (2-4) % Baso % (Auto) (0-2) % Neut # (Auto) (6521-7902) /uL Lymph # (Auto) (0822-2878) /uL Cobb # (Auto) (0-900) /uL Eos # (Auto) (0-450) /uL Baso # (Auto) (0-100) /uL APTT (26-36) SECONDS Sodium (137-145) mmol/L Potassium (3.4-5.1) mmol/L Chloride (98-107) mmol/L Carbon Dioxide (22-32) mmol/L BUN (9-20) mg/dL Creatinine (0.66-1.25) mg/dL Estimated GFR (>60) mL/min BUN/Creatinine Ratio (6-22) Glucose (80-110) mg/dL Lactate 1.9 1.5 (0.7-2.1) mmol/L Calcium (8.4-10.2) mg/dL Total Bilirubin (0.2-1.3) mg/dL AST (17-59) IU/L ALT (<50) IU/L Alkaline Phosphatase (38-126) U/L Total Creatine Kinase (55-170) U/L CK-MB (CK-2) CK-MB (CK-2) Rel Index Troponin I (0.01-0.034) ng/mL Total Protein (6.3-8.2) g/dL Albumin (3.5-5.0) g/dL Globulin (1.7-4.1) g/dL Albumin/Globulin Ratio (1.0-2.8) Lipase (23-300) U/L SARS-CoV-2 (PCR) Negative (Negative) 02/10/22 02/10/22 02/10/22 Range/Units 03:40 03:40 03:40 WBC 18.8 H (4.5-11.0) X10^3/uL RBC 4.22 L (4.5-5.9) X10^6/uL Hgb 12.3 L (13.5-17.5) g/dL Hct 36.6 L (41-53) % MCV 86.7 (80-100) fL MCH 29.2 (26-34) PG MCHC 33.7 (30-36) % RDW 14.8 (11.6-14.8) % Plt Count 191 (150-400) X10^3/uL Neut % (Auto) 92.7 H (50-75) % Lymph % (Auto) 2.4 L (25-40) % Cobb % (Auto) 4.6 (3-14) % Eos % (Auto) 0.1 L (2-4) % Baso % (Auto) 0.2 (0-2) % Neut # (Auto) 35833 H (0588-8425) /uL Lymph # (Auto) 400 L (1651-5224) /uL Cobb # (Auto) 900 (0-900) /uL Eos # (Auto) 0 (0-450) /uL Baso # (Auto) 0 (0-100) /uL APTT (26-36) SECONDS Sodium 132 L (137-145) mmol/L Potassium 4.1 (3.4-5.1) mmol/L Chloride 101 (98-107) mmol/L Carbon Dioxide 23 (22-32) mmol/L BUN 18 (9-20) mg/dL Creatinine 0.99 (0.66-1.25) mg/dL Estimated GFR > 60 (>60) mL/min BUN/Creatinine Ratio 18.2 (6-22) Glucose 97 (80-110) mg/dL Lactate (0.7-2.1) mmol/L Calcium 8.3 L (8.4-10.2) mg/dL Total Bilirubin 6.0 H (0.2-1.3) mg/dL AST 187 H (17-59) IU/L ALT 255 H (<50) IU/L Alkaline Phosphatase 211 H (38-126) U/L Total Creatine Kinase (55-170) U/L CK-MB (CK-2) CK-MB (CK-2) Rel Index Troponin I (0.01-0.034) ng/mL Total Protein 5.8 L (6.3-8.2) g/dL Albumin 3.1 L (3.5-5.0) g/dL Globulin 2.7 (1.7-4.1) g/dL Albumin/Globulin Ratio 1.1 (1.0-2.8) Lipase 2488 H D (23-300) U/L SARS-CoV-2 (PCR) (Negative) 02/10/22 02/11/22 02/11/22 Range/Units 15:57 06:00 06:00 WBC 11.8 H (4.5-11.0) X10^3/uL RBC 4.22 L (4.5-5.9) X10^6/uL Hgb 12.3 L (13.5-17.5) g/dL Hct 36.7 L (41-53) % MCV 87.1 (80-100) fL MCH 29.2 (26-34) PG MCHC 33.6 (30-36) % RDW 14.9 H (11.6-14.8) % Plt Count 163 (150-400) X10^3/uL Neut % (Auto) 87.4 H (50-75) % Lymph % (Auto) 4.4 L (25-40) % Cobb % (Auto) 7.5 (3-14) % Eos % (Auto) 0.5 L (2-4) % Baso % (Auto) 0.2 (0-2) % Neut # (Auto) 92414 H (2710-4560) /uL Lymph # (Auto) 500 L (5845-9174) /uL Cobb # (Auto) 900 (0-900) /uL Eos # (Auto) 100 (0-450) /uL Baso # (Auto) 0 (0-100) /uL APTT 50 H (26-36) SECONDS Sodium 135 L (137-145) mmol/L Potassium 3.4 (3.4-5.1) mmol/L Chloride 104 (98-107) mmol/L Carbon Dioxide 21 L (22-32) mmol/L BUN 19 (9-20) mg/dL Creatinine 0.73 (0.66-1.25) mg/dL Estimated GFR > 60 (>60) mL/min BUN/Creatinine Ratio 26.0 H (6-22) Glucose 85 (80-110) mg/dL Lactate (0.7-2.1) mmol/L Calcium 7.7 L (8.4-10.2) mg/dL Total Bilirubin 5.8 H (0.2-1.3) mg/dL AST 103 H (17-59) IU/L ALT 177 H (<50) IU/L Alkaline Phosphatase 202 H (38-126) U/L Total Creatine Kinase (55-170) U/L CK-MB (CK-2) CK-MB (CK-2) Rel Index Troponin I (0.01-0.034) ng/mL Total Protein 5.7 L (6.3-8.2) g/dL Albumin 3.0 L (3.5-5.0) g/dL Globulin 2.7 (1.7-4.1) g/dL Albumin/Globulin Ratio 1.1 (1.0-2.8) Lipase 49155 H D (23-300) U/L SARS-CoV-2 (PCR) (Negative) 02/11/22 Range/Units 15:41 WBC (4.5-11.0) X10^3/uL RBC (4.5-5.9) X10^6/uL Hgb (13.5-17.5) g/dL Hct (41-53) % MCV (80-100) fL MCH (26-34) PG MCHC (30-36) % RDW (11.6-14.8) % Plt Count (150-400) X10^3/uL Neut % (Auto) (50-75) % Lymph % (Auto) (25-40) % Cobb % (Auto) (3-14) % Eos % (Auto) (2-4) % Baso % (Auto) (0-2) % Neut # (Auto) (6538-9958) /uL Lymph # (Auto) (9125-9301) /uL Cobb # (Auto) (0-900) /uL Eos # (Auto) (0-450) /uL Baso # (Auto) (0-100) /uL APTT (26-36) SECONDS Sodium (137-145) mmol/L Potassium (3.4-5.1) mmol/L Chloride (98-107) mmol/L Carbon Dioxide (22-32) mmol/L BUN (9-20) mg/dL Creatinine (0.66-1.25) mg/dL Estimated GFR (>60) mL/min BUN/Creatinine Ratio (6-22) Glucose (80-110) mg/dL Lactate (0.7-2.1) mmol/L Calcium (8.4-10.2) mg/dL Total Bilirubin (0.2-1.3) mg/dL AST (17-59) IU/L ALT (<50) IU/L Alkaline Phosphatase (38-126) U/L Total Creatine Kinase (55-170) U/L CK-MB (CK-2) CK-MB (CK-2) Rel Index Troponin I (0.01-0.034) ng/mL Total Protein (6.3-8.2) g/dL Albumin (3.5-5.0) g/dL Globulin (1.7-4.1) g/dL Albumin/Globulin Ratio (1.0-2.8) Lipase (23-300) U/L SARS-CoV-2 (PCR) Negative (Negative) Point of care testing: Point of Care Testing Glucose POC 78 Urine Dip Bedside Urine Glucose Negative Bedside Urine Bilirubin ++ 2 Bedside Urine Ketone +/- 5 Urine Specific Hopkins 1.025 Bedside Urine Occult Blood - Negative Bedside Urine pH 6.0 Bedside Urine Protein + 30 Bedside Urine Urobilinogen - Negative Bedside Urine Nitrite - Negative Bedside Urine Leukocytes +/- 15 Esterase Imaging Data US - abdomen: Radiologist's Impression: Signed Patient: Deion Mello MR#: [id number] : 1940 Acct:[id number] Age/Sex: 81 / M Date of Service: 02/09/22 Loc: ED Accession Number: [id number] ?? Procedure: US abdomen limited Ordering Provider: Leslee Pop D.O. PROCEDURE:? US ABDOMEN LIMITED ? INDICATIONS:? RIGHT UPPER QUADRANT PAIN AND NAUSEA ? TECHNIQUE:? Real-time scanning was performed of the abdominal and retroperitoneal organs, with image documentation.? ? COMPARISON:? None. ? FINDINGS:? ? Liver:? Liver is normal in size and homogeneous in echotexture.? ? Gallbladder:? The gallbladder wall measures 2 mm in diameter.? Multiple mobile stones are present within the gallbladder fundus.? No pericholecystic fluid.? ? Biliary ducts:? There is intrahepatic biliary ductal dilatation.? The common bile duct measures up to 1.2 cm in diameter. ? Pancreas:? The pancreas is poorly visualized. ? IMPRESSION:? Cholelithiasis.? Although no discrete calculi are visualized within the biliary tree, there is intra and extrahepatic biliary ductal dilatation raising the suspicion for choledocholithiasis.? No gallbladder wall thickening or pericholecystic fluid to suggest acute cholecystitis. ? ? ? Dictated by: Radha Rosales M.D. on 02/09/2022 at 16:59 ?? ECG Data Interpretation: Atrial fibrillation rate [address] changes no T-wave inversion, no prior MDM Narrative Medical decision making narrative: Patient has epigastric pain elevated bilirubin of 4.5 elevated liver enzymes and lipase of 27,000 consistent with choledocholithiasis and pancreatitis. He initially was stable. He was given pain medication. he went into AFib with RVR he was also given 10 mg of Cardizem. His blood pressure over his course in the emergency department started decrease and maybe medication related versus sepsis. He did go to the [facility], had returned. I saw and evaluated patient again abdomen is soft and nontender awake alert. Remains in AFib with RVR. Sepsis fluids started blood cultures pending and antibiotics given After discussion with both patient and at this time he remains a full code, including CPR vasopressors and intubation if needed Signed out to Dr. Mckeon for further management this evening [1999] (Mike) Patient received in sign out from [Donn]. I have reviewed the clinical course and performed an independent history and physical exam. 2200 -blood pressure continues to improve with combination of fluids as well as the tincture of time, presumably the episodes of low blood pressure were least partly related to medications including Cardizem, morphine, and Ativan Donn- Patient remains stable with fluids. DVT/afib prophylaxis initially started on heparin no bolus was given, started on Lovenox subQ. Remains rate controlled. Requires minimal pain medications. Continues to receive antibiotics. 1140am Dr Nieves Patient is seen and examined He has choledocholithiasis currently is on fentanyl for pain which has been more effective than morphine, Zosyn, b.i.d. heparin, maintenance fluids at 150 cc an hour. Exam: Blood pressure 112/76, heart rate 97, respiratory rate of 26, temperature is 97.5? General: Jaundiced, alert and appropriate Respiratory: Lungs are clear to auscultation, no wheezing no rales no rhonchi. Full and symmetrical air movement Cardiac: Regular rate and rhythm no murmurs no bruits Abdomen: Soft, upper abdominal tenderness without rebound or guarding Skin: Warm and dry, jaundiced Neurologic: Increasing global weakness but otherwise Grossly neurologically intact with no obvious asymmetries or abnormalities Psych: Cooperative, appropriate insight and affect Impression and plan 1: Choledocholithiasis. On antibiotics. Multiple phone calls to all local hospitals either no beds or no ERCP capacity. [facility] is involved. Labs this morning show decreasing white blood cell count, LFTs including total bilirubin are essentially stable with bilirubin at 7.7 today. Lipase is increasing yesterday was 2488 and today is up to 10,692 Findings reviewed with patient and and updates are given along with updates on all attempts for transfer. 2pm calls to all hospitals up in [facility] 5 corridor as far [place] as [facility] and into [facility]. Still no beds available. Coordinating with [facility] still 335 Spoke with MARISSA Vázquez at [facility]. Accepts patieint, will admit to hospitalist. Requests imaging pushed up and repeat covid. 415pm Dr Jerry, computer installation engineer. Will accept to ICU. Transfer center will call with bed. <Prem Mckeon, - Last Filed: 02/12/22 13:00> Lab Data Labs: Lab Results 02/09/22 02/09/22 02/09/22 Range/Units 12:35 12:35 13:54 WBC 16.3 H (4.5-11.0) X10^3/uL RBC 4.93 (4.5-5.9) X10^6/uL Hgb 14.5 (13.5-17.5) g/dL Hct 42.7 (41-53) % MCV 86.6 (80-100) fL MCH 29.5 (26-34) PG MCHC 34.1 (30-36) % RDW 14.3 (11.6-14.8) % Plt Count 272 (150-400) X10^3/uL Neut % (Auto) 89.0 H (50-75) % Lymph % (Auto) 7.1 L (25-40) % Cobb % (Auto) 2.1 L (3-14) % Eos % (Auto) 1.3 L (2-4) % Baso % (Auto) 0.5 (0-2) % Neut # (Auto) 28208 H (5446-8938) /uL Lymph # (Auto) 1200 (0998-9303) /uL Cobb # (Auto) 300 (0-900) /uL Eos # (Auto) 200 (0-450) /uL Baso # (Auto) 100 (0-100) /uL APTT (26-36) SECONDS Sodium 132 L (137-145) mmol/L Potassium 4.0 (3.4-5.1) mmol/L Chloride 92 L (98-107) mmol/L Carbon Dioxide 28 (22-32) mmol/L BUN 18 (9-20) mg/dL Creatinine 0.94 (0.66-1.25) mg/dL Estimated GFR > 60 (>60) mL/min BUN/Creatinine Ratio 19.1 (6-22) Glucose 98 (80-110) mg/dL Lactate (0.7-2.1) mmol/L Calcium 9.5 (8.4-10.2) mg/dL Total Bilirubin 4.5 H (0.2-1.3) mg/dL AST 302 H (17-59) IU/L ALT 372 H (<50) IU/L Alkaline Phosphatase 362 H (38-126) U/L Total Creatine Kinase 58 (55-170) U/L CK-MB (CK-2) TNP CK-MB (CK-2) Rel Index TNP Troponin I < 0.012 (0.01-0.034) ng/mL Total Protein 7.6 (6.3-8.2) g/dL Albumin 4.2 (3.5-5.0) g/dL Globulin 3.4 (1.7-4.1) g/dL Albumin/Globulin Ratio 1.2 (1.0-2.8) Lipase 99974 H (23-300) U/L SARS-CoV-2 (PCR) (Negative) 02/09/22 02/09/22 02/09/22 Range/Units 13:54 16:57 18:40 WBC (4.5-11.0) X10^3/uL RBC (4.5-5.9) X10^6/uL Hgb (13.5-17.5) g/dL Hct (41-53) % MCV (80-100) fL MCH (26-34) PG MCHC (30-36) % RDW (11.6-14.8) % Plt Count (150-400) X10^3/uL Neut % (Auto) (50-75) % Lymph % (Auto) (25-40) % Cobb % (Auto) (3-14) % Eos % (Auto) (2-4) % Baso % (Auto) (0-2) % Neut # (Auto) (5125-0703) /uL Lymph # (Auto) (8600-3832) /uL Cobb # (Auto) (0-900) /uL Eos # (Auto) (0-450) /uL Baso # (Auto) (0-100) /uL APTT (26-36) SECONDS Sodium (137-145) mmol/L Potassium (3.4-5.1) mmol/L Chloride (98-107) mmol/L Carbon Dioxide (22-32) mmol/L BUN (9-20) mg/dL Creatinine (0.66-1.25) mg/dL Estimated GFR (>60) mL/min BUN/Creatinine Ratio (6-22) Glucose (80-110) mg/dL Lactate 1.9 1.5 (0.7-2.1) mmol/L Calcium (8.4-10.2) mg/dL Total Bilirubin (0.2-1.3) mg/dL AST (17-59) IU/L ALT (<50) IU/L Alkaline Phosphatase (38-126) U/L Total Creatine Kinase (55-170) U/L CK-MB (CK-2) CK-MB (CK-2) Rel Index Troponin I (0.01-0.034) ng/mL Total Protein (6.3-8.2) g/dL Albumin (3.5-5.0) g/dL Globulin (1.7-4.1) g/dL Albumin/Globulin Ratio (1.0-2.8) Lipase (23-300) U/L SARS-CoV-2 (PCR) Negative (Negative) 02/10/22 02/10/22 02/10/22 Range/Units 03:40 03:40 03:40 WBC 18.8 H (4.5-11.0) X10^3/uL RBC 4.22 L (4.5-5.9) X10^6/uL Hgb 12.3 L (13.5-17.5) g/dL Hct 36.6 L (41-53) % MCV 86.7 (80-100) fL MCH 29.2 (26-34) PG MCHC 33.7 (30-36) % RDW 14.8 (11.6-14.8) % Plt Count 191 (150-400) X10^3/uL Neut % (Auto) 92.7 H (50-75) % Lymph % (Auto) 2.4 L (25-40) % Cobb % (Auto) 4.6 (3-14) % Eos % (Auto) 0.1 L (2-4) % Baso % (Auto) 0.2 (0-2) % Neut # (Auto) 67667 H (2145-8910) /uL Lymph # (Auto) 400 L (2512-3218) /uL Cobb # (Auto) 900 (0-900) /uL Eos # (Auto) 0 (0-450) /uL Baso # (Auto) 0 (0-100) /uL APTT (26-36) SECONDS Sodium 132 L (137-145) mmol/L Potassium 4.1 (3.4-5.1) mmol/L Chloride 101 (98-107) mmol/L Carbon Dioxide 23 (22-32) mmol/L BUN 18 (9-20) mg/dL Creatinine 0.99 (0.66-1.25) mg/dL Estimated GFR > 60 (>60) mL/min BUN/Creatinine Ratio 18.2 (6-22) Glucose 97 (80-110) mg/dL Lactate (0.7-2.1) mmol/L Calcium 8.3 L (8.4-10.2) mg/dL Total Bilirubin 6.0 H (0.2-1.3) mg/dL AST 187 H (17-59) IU/L ALT 255 H (<50) IU/L Alkaline Phosphatase 211 H (38-126) U/L Total Creatine Kinase (55-170) U/L CK-MB (CK-2) CK-MB (CK-2) Rel Index Troponin I (0.01-0.034) ng/mL Total Protein 5.8 L (6.3-8.2) g/dL Albumin 3.1 L (3.5-5.0) g/dL Globulin 2.7 (1.7-4.1) g/dL Albumin/Globulin Ratio 1.1 (1.0-2.8) Lipase 2488 H D (23-300) U/L SARS-CoV-2 (PCR) (Negative) 02/10/22 02/11/22 02/11/22 Range/Units 15:57 06:00 06:00 WBC 11.8 H (4.5-11.0) X10^3/uL RBC 4.22 L (4.5-5.9) X10^6/uL Hgb 12.3 L (13.5-17.5) g/dL Hct 36.7 L (41-53) % MCV 87.1 (80-100) fL MCH 29.2 (26-34) PG MCHC 33.6 (30-36) % RDW 14.9 H (11.6-14.8) % Plt Count 163 (150-400) X10^3/uL Neut % (Auto) 87.4 H (50-75) % Lymph % (Auto) 4.4 L (25-40) % Cobb % (Auto) 7.5 (3-14) % Eos % (Auto) 0.5 L (2-4) % Baso % (Auto) 0.2 (0-2) % Neut # (Auto) 62208 H (8483-9375) /uL Lymph # (Auto) 500 L (6856-1774) /uL Cobb # (Auto) 900 (0-900) /uL Eos # (Auto) 100 (0-450) /uL Baso # (Auto) 0 (0-100) /uL APTT 50 H (26-36) SECONDS Sodium 135 L (137-145) mmol/L Potassium 3.4 (3.4-5.1) mmol/L Chloride 104 (98-107) mmol/L Carbon Dioxide 21 L (22-32) mmol/L BUN 19 (9-20) mg/dL Creatinine 0.73 (0.66-1.25) mg/dL Estimated GFR > 60 (>60) mL/min BUN/Creatinine Ratio 26.0 H (6-22) Glucose 85 (80-110) mg/dL Lactate (0.7-2.1) mmol/L Calcium 7.7 L (8.4-10.2) mg/dL Total Bilirubin 5.8 H (0.2-1.3) mg/dL AST 103 H (17-59) IU/L ALT 177 H (<50) IU/L Alkaline Phosphatase 202 H (38-126) U/L Total Creatine Kinase (55-170) U/L CK-MB (CK-2) CK-MB (CK-2) Rel Index Troponin I (0.01-0.034) ng/mL Total Protein 5.7 L (6.3-8.2) g/dL Albumin 3.0 L (3.5-5.0) g/dL Globulin 2.7 (1.7-4.1) g/dL Albumin/Globulin Ratio 1.1 (1.0-2.8) Lipase 17092 H D (23-300) U/L SARS-CoV-2 (PCR) (Negative) 02/11/22 Range/Units 15:41 WBC (4.5-11.0) X10^3/uL RBC (4.5-5.9) X10^6/uL Hgb (13.5-17.5) g/dL Hct (41-53) % MCV (80-100) fL MCH (26-34) PG MCHC (30-36) % RDW (11.6-14.8) % Plt Count (150-400) X10^3/uL Neut % (Auto) (50-75) % Lymph % (Auto) (25-40) % Cobb % (Auto) (3-14) % Eos % (Auto) (2-4) % Baso % (Auto) (0-2) % Neut # (Auto) (1091-3600) /uL Lymph # (Auto) (4398-3114) /uL Cobb # (Auto) (0-900) /uL Eos # (Auto) (0-450) /uL Baso # (Auto) (0-100) /uL APTT (26-36) SECONDS Sodium (137-145) mmol/L Potassium (3.4-5.1) mmol/L Chloride (98-107) mmol/L Carbon Dioxide (22-32) mmol/L BUN (9-20) mg/dL Creatinine (0.66-1.25) mg/dL Estimated GFR (>60) mL/min BUN/Creatinine Ratio (6-22) Glucose (80-110) mg/dL Lactate (0.7-2.1) mmol/L Calcium (8.4-10.2) mg/dL Total Bilirubin (0.2-1.3) mg/dL AST (17-59) IU/L ALT (<50) IU/L Alkaline Phosphatase (38-126) U/L Total Creatine Kinase (55-170) U/L CK-MB (CK-2) CK-MB (CK-2) Rel Index Troponin I (0.01-0.034) ng/mL Total Protein (6.3-8.2) g/dL Albumin (3.5-5.0) g/dL Globulin (1.7-4.1) g/dL Albumin/Globulin Ratio (1.0-2.8) Lipase (23-300) U/L SARS-CoV-2 (PCR) Negative (Negative) Point of care testing: Point of Care Testing Glucose POC 78 Urine Dip Bedside Urine Glucose Negative Bedside Urine Bilirubin ++ 2 Bedside Urine Ketone +/- 5 Urine Specific Hopkins 1.025 Bedside Urine Occult Blood - Negative Bedside Urine pH 6.0 Bedside Urine Protein + 30 Bedside Urine Urobilinogen - Negative Bedside Urine Nitrite - Negative Bedside Urine Leukocytes +/- 15 Esterase MDM Narrative Medical decision making narrative: Patient has epigastric pain elevated bilirubin of 4.5 elevated liver enzymes and lipase of 27,000 consistent with choledocholithiasis and pancreatitis. He initially was stable. He was given pain medication. he went into AFib with RVR he was also given 10 mg of Cardizem. His blood pressure over his course in the emergency department started decrease and maybe medication related versus sepsis. He did go to the [facility], had returned. I saw and evaluated patient again abdomen is soft and nontender awake alert. Remains in AFib with RVR. Sepsis fluids started blood cultures pending and antibiotics given After discussion with both patient and at this time he remains a full code, including CPR vasopressors and intubation if needed Signed out to Dr. Mckeon for further management this evening [1999] (Mike) Patient received in sign out from [Donn]. I have reviewed the clinical course and performed an independent history and physical exam. 2200 -blood pressure continues to improve with combination of fluids as well as the tincture of time, presumably the episodes of low blood pressure were least partly related to medications including Cardizem, morphine, and Ativan <Tran Nieves MD - Last Filed: 02/11/22 17:05> Lab Data Labs: Lab Results 02/09/22 02/09/22 02/09/22 Range/Units 12:35 12:35 13:54 WBC 16.3 H (4.5-11.0) X10^3/uL RBC 4.93 (4.5-5.9) X10^6/uL Hgb 14.5 (13.5-17.5) g/dL Hct 42.7 (41-53) % MCV 86.6 (80-100) fL MCH 29.5 (26-34) PG MCHC 34.1 (30-36) % RDW 14.3 (11.6-14.8) % Plt Count 272 (150-400) X10^3/uL Neut % (Auto) 89.0 H (50-75) % Lymph % (Auto) 7.1 L (25-40) % Cobb % (Auto) 2.1 L (3-14) % Eos % (Auto) 1.3 L (2-4) % Baso % (Auto) 0.5 (0-2) % Neut # (Auto) 00999 H (6822-4833) /uL Lymph # (Auto) 1200 (7074-2012) /uL Cobb # (Auto) 300 (0-900) /uL Eos # (Auto) 200 (0-450) /uL Baso # (Auto) 100 (0-100) /uL APTT (26-36) SECONDS Sodium 132 L (137-145) mmol/L Potassium 4.0 (3.4-5.1) mmol/L Chloride 92 L (98-107) mmol/L Carbon Dioxide 28 (22-32) mmol/L BUN 18 (9-20) mg/dL Creatinine 0.94 (0.66-1.25) mg/dL Estimated GFR > 60 (>60) mL/min BUN/Creatinine Ratio 19.1 (6-22) Glucose 98 (80-110) mg/dL Lactate (0.7-2.1) mmol/L Calcium 9.5 (8.4-10.2) mg/dL Total Bilirubin 4.5 H (0.2-1.3) mg/dL AST 302 H (17-59) IU/L ALT 372 H (<50) IU/L Alkaline Phosphatase 362 H (38-126) U/L Total Creatine Kinase 58 (55-170) U/L CK-MB (CK-2) TNP CK-MB (CK-2) Rel Index TNP Troponin I < 0.012 (0.01-0.034) ng/mL Total Protein 7.6 (6.3-8.2) g/dL Albumin 4.2 (3.5-5.0) g/dL Globulin 3.4 (1.7-4.1) g/dL Albumin/Globulin Ratio 1.2 (1.0-2.8) Lipase 50835 H (23-300) U/L SARS-CoV-2 (PCR) (Negative) 02/09/22 02/09/22 02/09/22 Range/Units 13:54 16:57 18:40 WBC (4.5-11.0) X10^3/uL RBC (4.5-5.9) X10^6/uL Hgb (13.5-17.5) g/dL Hct (41-53) % MCV (80-100) fL MCH (26-34) PG MCHC (30-36) % RDW (11.6-14.8) % Plt Count (150-400) X10^3/uL Neut % (Auto) (50-75) % Lymph % (Auto) (25-40) % Cobb % (Auto) (3-14) % Eos % (Auto) (2-4) % Baso % (Auto) (0-2) % Neut # (Auto) (5284-5604) /uL Lymph # (Auto) (5159-9727) /uL Cobb # (Auto) (0-900) /uL Eos # (Auto) (0-450) /uL Baso # (Auto) (0-100) /uL APTT (26-36) SECONDS Sodium (137-145) mmol/L Potassium (3.4-5.1) mmol/L Chloride (98-107) mmol/L Carbon Dioxide (22-32) mmol/L BUN (9-20) mg/dL Creatinine (0.66-1.25) mg/dL Estimated GFR (>60) mL/min BUN/Creatinine Ratio (6-22) Glucose (80-110) mg/dL Lactate 1.9 1.5 (0.7-2.1) mmol/L Calcium (8.4-10.2) mg/dL Total Bilirubin (0.2-1.3) mg/dL AST (17-59) IU/L ALT (<50) IU/L Alkaline Phosphatase (38-126) U/L Total Creatine Kinase (55-170) U/L CK-MB (CK-2) CK-MB (CK-2) Rel Index Troponin I (0.01-0.034) ng/mL Total Protein (6.3-8.2) g/dL Albumin (3.5-5.0) g/dL Globulin (1.7-4.1) g/dL Albumin/Globulin Ratio (1.0-2.8) Lipase (23-300) U/L SARS-CoV-2 (PCR) Negative (Negative) 02/10/22 02/10/22 02/10/22 Range/Units 03:40 03:40 03:40 WBC 18.8 H (4.5-11.0) X10^3/uL RBC 4.22 L (4.5-5.9) X10^6/uL Hgb 12.3 L (13.5-17.5) g/dL Hct 36.6 L (41-53) % MCV 86.7 (80-100) fL MCH 29.2 (26-34) PG MCHC 33.7 (30-36) % RDW 14.8 (11.6-14.8) % Plt Count 191 (150-400) X10^3/uL Neut % (Auto) 92.7 H (50-75) % Lymph % (Auto) 2.4 L (25-40) % Cobb % (Auto) 4.6 (3-14) % Eos % (Auto) 0.1 L (2-4) % Baso % (Auto) 0.2 (0-2) % Neut # (Auto) 56291 H (8517-0626) /uL Lymph # (Auto) 400 L (8697-6027) /uL Cobb # (Auto) 900 (0-900) /uL Eos # (Auto) 0 (0-450) /uL Baso # (Auto) 0 (0-100) /uL APTT (26-36) SECONDS Sodium 132 L (137-145) mmol/L Potassium 4.1 (3.4-5.1) mmol/L Chloride 101 (98-107) mmol/L Carbon Dioxide 23 (22-32) mmol/L BUN 18 (9-20) mg/dL Creatinine 0.99 (0.66-1.25) mg/dL Estimated GFR > 60 (>60) mL/min BUN/Creatinine Ratio 18.2 (6-22) Glucose 97 (80-110) mg/dL Lactate (0.7-2.1) mmol/L Calcium 8.3 L (8.4-10.2) mg/dL Total Bilirubin 6.0 H (0.2-1.3) mg/dL AST 187 H (17-59) IU/L ALT 255 H (<50) IU/L Alkaline Phosphatase 211 H (38-126) U/L Total Creatine Kinase (55-170) U/L CK-MB (CK-2) CK-MB (CK-2) Rel Index Troponin I (0.01-0.034) ng/mL Total Protein 5.8 L (6.3-8.2) g/dL Albumin 3.1 L (3.5-5.0) g/dL Globulin 2.7 (1.7-4.1) g/dL Albumin/Globulin Ratio 1.1 (1.0-2.8) Lipase 2488 H D (23-300) U/L SARS-CoV-2 (PCR) (Negative) 02/10/22 02/11/22 02/11/22 Range/Units 15:57 06:00 06:00 WBC 11.8 H (4.5-11.0) X10^3/uL RBC 4.22 L (4.5-5.9) X10^6/uL Hgb 12.3 L (13.5-17.5) g/dL Hct 36.7 L (41-53) % MCV 87.1 (80-100) fL MCH 29.2 (26-34) PG MCHC 33.6 (30-36) % RDW 14.9 H (11.6-14.8) % Plt Count 163 (150-400) X10^3/uL Neut % (Auto) 87.4 H (50-75) % Lymph % (Auto) 4.4 L (25-40) % Cobb % (Auto) 7.5 (3-14) % Eos % (Auto) 0.5 L (2-4) % Baso % (Auto) 0.2 (0-2) % Neut # (Auto) 57469 H (5220-2030) /uL Lymph # (Auto) 500 L (6374-4287) /uL Cobb # (Auto) 900 (0-900) /uL Eos # (Auto) 100 (0-450) /uL Baso # (Auto) 0 (0-100) /uL APTT 50 H (26-36) SECONDS Sodium 135 L (137-145) mmol/L Potassium 3.4 (3.4-5.1) mmol/L Chloride 104 (98-107) mmol/L Carbon Dioxide 21 L (22-32) mmol/L BUN 19 (9-20) mg/dL Creatinine 0.73 (0.66-1.25) mg/dL Estimated GFR > 60 (>60) mL/min BUN/Creatinine Ratio 26.0 H (6-22) Glucose 85 (80-110) mg/dL Lactate (0.7-2.1) mmol/L Calcium 7.7 L (8.4-10.2) mg/dL Total Bilirubin 5.8 H (0.2-1.3) mg/dL AST 103 H (17-59) IU/L ALT 177 H (<50) IU/L Alkaline Phosphatase 202 H (38-126) U/L Total Creatine Kinase (55-170) U/L CK-MB (CK-2) CK-MB (CK-2) Rel Index Troponin I (0.01-0.034) ng/mL Total Protein 5.7 L (6.3-8.2) g/dL Albumin 3.0 L (3.5-5.0) g/dL Globulin 2.7 (1.7-4.1) g/dL Albumin/Globulin Ratio 1.1 (1.0-2.8) Lipase 08310 H D (23-300) U/L SARS-CoV-2 (PCR) (Negative) 02/11/22 Range/Units 15:41 WBC (4.5-11.0) X10^3/uL RBC (4.5-5.9) X10^6/uL Hgb (13.5-17.5) g/dL Hct (41-53) % MCV (80-100) fL MCH (26-34) PG MCHC (30-36) % RDW (11.6-14.8) % Plt Count (150-400) X10^3/uL Neut % (Auto) (50-75) % Lymph % (Auto) (25-40) % Cobb % (Auto) (3-14) % Eos % (Auto) (2-4) % Baso % (Auto) (0-2) % Neut # (Auto) (9469-0481) /uL Lymph # (Auto) (0749-3943) /uL Cobb # (Auto) (0-900) /uL Eos # (Auto) (0-450) /uL Baso # (Auto) (0-100) /uL APTT (26-36) SECONDS Sodium (137-145) mmol/L Potassium (3.4-5.1) mmol/L Chloride (98-107) mmol/L Carbon Dioxide (22-32) mmol/L BUN (9-20) mg/dL Creatinine (0.66-1.25) mg/dL Estimated GFR (>60) mL/min BUN/Creatinine Ratio (6-22) Glucose (80-110) mg/dL Lactate (0.7-2.1) mmol/L Calcium (8.4-10.2) mg/dL Total Bilirubin (0.2-1.3) mg/dL AST (17-59) IU/L ALT (<50) IU/L Alkaline Phosphatase (38-126) U/L Total Creatine Kinase (55-170) U/L CK-MB (CK-2) CK-MB (CK-2) Rel Index Troponin I (0.01-0.034) ng/mL Total Protein (6.3-8.2) g/dL Albumin (3.5-5.0) g/dL Globulin (1.7-4.1) g/dL Albumin/Globulin Ratio (1.0-2.8) Lipase (23-300) U/L SARS-CoV-2 (PCR) Negative (Negative) Point of care testing: Point of Care Testing Glucose POC 78 Urine Dip Bedside Urine Glucose Negative Bedside Urine Bilirubin ++ 2 Bedside Urine Ketone +/- 5 Urine Specific Hopkins 1.025 Bedside Urine Occult Blood - Negative Bedside Urine pH 6.0 Bedside Urine Protein + 30 Bedside Urine Urobilinogen - Negative Bedside Urine Nitrite - Negative Bedside Urine Leukocytes +/- 15 Esterase Imaging Data US - abdomen: Radiologist's Impression: PROCEDURE:? US ABDOMEN LIMITED ? INDICATIONS:? RIGHT UPPER QUADRANT PAIN AND NAUSEA ? TECHNIQUE:? Real-time scanning was performed of the abdominal and retroperitoneal organs, with image documentation.? ? COMPARISON:? None. ? FINDINGS:? ? Liver:? Liver is normal in size and homogeneous in echotexture.? ? Gallbladder:? The gallbladder wall measures 2 mm in diameter.? Multiple mobile stones are present within the gallbladder fundus.? No pericholecystic fluid.? ? Biliary ducts:? There is intrahepatic biliary ductal dilatation.? The common bile duct measures up to 1.2 cm in diameter. ? Pancreas:? The pancreas is poorly visualized. ? IMPRESSION:? Cholelithiasis.? Although no discrete calculi are visualized within the biliary tree, there is intra and extrahepatic biliary ductal dilatation raising the suspicion for choledocholithiasis.? No gallbladder wall thickening or pericholecystic fluid to suggest acute cholecystitis. ? ? ? Dictated by: Radha Rosales M.D. on 02/09/2022 at 16:59 ?? MDM Narrative Medical decision making narrative: Patient has epigastric pain elevated bilirubin of 4.5 elevated liver enzymes and lipase of 27,000 consistent with choledocholithiasis and pancreatitis. He initially was stable. He was given pain medication. he went into AFib with RVR he was also given 10 mg of Cardizem. His blood pressure over his course in the emergency department started decrease and maybe medication related versus sepsis. He did go to the MRCP, had returned. I saw and evaluated patient again abdomen is soft and nontender awake alert. Remains in AFib with RVR. Sepsis fluids started blood cultures pending and antibiotics given After discussion with both patient and at this time he remains a full code, including CPR vasopressors and intubation if needed Signed out to Dr. Mckeon for further management this evening [1999] (Mike) Patient received in sign out from [Donn]. I have reviewed the clinical course and performed an independent history and physical exam. 2200 -blood pressure continues to improve with combination of fluids as well as the tincture of time, presumably the episodes of low blood pressure were least partly related to medications including Cardizem, morphine, and Ativan 1140am Dr Nieves Patient is seen and examined He has choledocholithiasis currently is on fentanyl for pain which has been more effective than morphine, Zosyn, b.i.d. heparin, maintenance fluids at 150 cc an hour. Exam: Blood pressure 112/76, heart rate 97, respiratory rate of 26, temperature is 97.5? General: Jaundiced, alert and appropriate Respiratory: Lungs are clear to auscultation, no wheezing no rales no rhonchi. Full and symmetrical air movement Cardiac: Regular rate and rhythm no murmurs no bruits Abdomen: Soft, upper abdominal tenderness without rebound or guarding Skin: Warm and dry, jaundiced Neurologic: Increasing global weakness but otherwise Grossly neurologically intact with no obvious asymmetries or abnormalities Psych: Cooperative, appropriate insight and affect Impression and plan 1: Choledocholithiasis. On antibiotics. Multiple phone calls to all local hospitals either no beds or no ERCP capacity. [facility] is involved. Labs this morning show decreasing white blood cell count, LFTs including total bilirubin are essentially stable with bilirubin at 7.7 today. Lipase is increasing yesterday was 2488 and today is up to 10,692 Findings reviewed with patient and and updates are given along with updates on all attempts for transfer. 2pm calls to all hospitals up in [facility] 5 corridor as far [place] as [facility] and into [facility]. Still no beds available. Coordinating with [facility] still 335 Spoke with MARISSA Vázquez at [facility]. Accepts patieint, will admit to hospitalist. Requests imaging pushed up and repeat covid. 415pm Dr Jerry, computer installation engineer. Will accept to ICU. Transfer center will call with bed. <Tran Nieves MD - Last Filed: 02/11/22 17:05> Critical Care Time Critical Care Time: Yes Total Critical Care Time: 89 Attestation: Critical care time is separate from other billable procedures. There is a high probability of a significant, sudden or life-threatening deterioration that requires my full and direct attention, intervention and personal management. This critical care time includes consultation with family and other consulting doctors, review of records, and interpretation of data from labs, EKGs and imaging as well as managements of choledochal lithiasis with acute cholecystitis with continued care, worsening clinical scenario and discussions with multiple consultants Discharge Plan Departure Patient Disposition: [facility] Clinical Impression: Choledocholithiasis with acute cholecystitis Prescriptions: No Action Pradaxa 150 mg capsule 150 mg PO BID atenolol 50 mg tablet 50 mg PO DAILY sildenafil 25 mg tablet 20 mg PO DAILY PRN (Reason: Sexual Activity) Rx Instructions: administer 3 tabs 1 to 4 hours before activity lisinopril-hydrochlorothiazide 10-12.5 mg tablet 10 tab PO DAILY atorvastatin 40 mg tablet 40 mg PO DAILY Qty: 90 1RF furosemide [Lasix] 20 mg tablet See Rx Instructions PO DAILY Qty: 20 0RF Rx Instructions: take 1 tab orally daily for 3 days then as needed thereafter for swelling; pantoprazole 40 mg tablet,delayed release (DR/EC) 40 mg PO DAILY Qty: 90 0RF Referrals: Scottie Rosenberg MD [Primary Care Provider] -
[2022-02-09] MEDS: ONDANSETRON 4 MG/2 ML INJ IV (15:22)
[2022-02-09] MEDS: SODIUM CHLORIDE 0.9% 1,000 ML 1000 ML IV (15:23)
[2022-02-09 15:24] LABS: Troponin I < 0.012 ng/mL (0.01-0.034)
[2022-02-09] MEDS: MORPHINE 2 MG/ML INJ IV (15:35)
[2022-02-09] MEDS: dilTIAZem 5 MG/ML SDV 10 MG IV (16:10)
[2022-02-09] MEDS: LORazepam 2 MG/ML INJ 0.5 MG IV (17:22)
[2022-02-09 17:26] LABS: COVID19 -Nasal RAPID Negative (Negative)
[2022-02-09] MEDS: PIPERACILLIN/TAZO 4.5 GM in SODIUM CHLORIDE 0.9% 100 ML IV (18:49)
[2022-02-09] MEDS: SODIUM CHLORIDE 0.9% 2,544.66 ML 848.22 ML IV (18:50)
[2022-02-09 19:15] LABS: Lactate (Lactic Acid) 1.5 mmol/L (0.7-2.1)
--- NOTE | 2022-02-09 21:35 | PC.NURSE ---
Patient laying back on gurney, sleeping. Respirations equal, regular and unlabored. 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 Will continue to monitor.
[2022-02-10] VITALS (171 sets, daily range): BP systolic 85–143; BP diastolic 46–74; PULSE 78–108; RESP 2–47; TEMP 37.1–37.7; O2SAT 91–98
[2022-02-10] MEDS: PIPERACILLIN/TAZO 3.375 GM in SODIUM CHLORIDE 0.9% 100 ML IV ×3 (03:43→19:51)
[2022-02-10 04:06] LABS: Add Manual Diff / Slide Review NO; Basophils Absolute Auto 0 /uL (0-100); Basophils Percent Auto 0.2 % (0-2); Eosinophils Absolute Auto 0 /uL (0-450); Eosinophils Percent Auto 0.1 % (2-4); Hematocrit 36.6 % (41-53); Hemoglobin 12.3 g/dL (13.5-17.5); Lymphocytes Absolute Auto 400 /uL (1100-4500); Lymphocytes Percent Auto 2.4 % (25-40); Mean Corpuscular HGB Conc 33.7 % (30-36); Mean Corpuscular Hemoglobin 29.2 PG (26-34); Mean Corpuscular Volume 86.7 fL (80-100); Monocytes Absolute Auto 900 /uL (0-900); Monocytes Percent Auto 4.6 % (3-14); Neutrophils Absolute Auto 17500 /uL (1500-7000); Neutrophils Percent Auto 92.7 % (50-75); Platelet Count 191 X10^3/uL (150-400); Red Blood Cell Count 4.22 X10^6/uL (4.5-5.9); Red Cell Distribution Width 14.8 % (11.6-14.8); White Blood Cell Count 18.8 X10^3/uL (4.5-11.0)
[2022-02-10 04:12] LABS: Alanine Aminotransferase 255 IU/L (<50); Albumin 3.1 g/dL (3.5-5.0); Albumin Globulin Ratio 1.1 (1.0-2.8); Alkaline Phosphatase 211 U/L (38-126); Aspartate Aminotransferase 187 IU/L (17-59); BUN Creatinine Ratio 18.2 (6-22); Blood Urea Nitrogen 18 mg/dL (9-20); Calcium 8.3 mg/dL (8.4-10.2); Carbon Dioxide 23 mmol/L (22-32); Chloride 101 mmol/L (98-107); Estimated Glomerular Filt Rate > 60 mL/min (>60); Globulin 2.7 g/dL (1.7-4.1); Glucose 97 mg/dL (80-110); HEMOLYSIS < 15 (0-50); Potassium 4.1 mmol/L (3.4-5.1); Sodium 132 mmol/L (137-145); Total Protein 5.8 g/dL (6.3-8.2)
[2022-02-10] MEDS: HEPARIN DRIP 25,000 UNIT/500 ML IV.SOLN 20 UNIT IV (09:51)
[2022-02-10 10:28] LABS: Lipase 2488 U/L (23-300)
[2022-02-10] MEDS: SODIUM CHLORIDE 0.9% 1,000 ML 150 ML IV (11:42)
--- NOTE | 2022-02-10 13:44 | PC.NURSE ---
pt c/o increasing pain after eating. currently rated at a 5/10. pt last 2 BP measurments was 80s/50s while pt was sleeping. repositioned bp cuff and measured 115/70s. spoke with md about pain and bp. fluid bolus of 500ml then retake bp and see about pain medications.
[2022-02-10] MEDS: SODIUM CHLORIDE 0.9% 1,000 ML 1000 ML IV (14:25)
[2022-02-10] MEDS: MORPHINE 2 MG/ML INJ IV (14:41)
[2022-02-10 16:27] LABS: PTT Partial Thromboplastin Tim 50 SECONDS (26-36)
--- NOTE | 2022-02-10 17:02 | PC.NURSE ---
PTT result came back low for therapuetic range, consulted with MD. She is seeking consultation and requires no action at this time. heparin continued
[2022-02-10] MEDS: ENOXAPARIN 100 MG/ML SYRINGE 85 MG SUBCUT (23:22)
[2022-02-11] VITALS (66 sets, daily range): BP systolic 93–160; BP diastolic 52–83; PULSE 79–103; RESP 8–41; TEMP 36.4–37; O2SAT 93–98
--- NOTE | 2022-02-11 00:58 | PC.NURSE ---
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
[2022-02-11] MEDS: diphenhydrAMINE 50 MG/ML VIAL 25 MG IV (04:41)
[2022-02-11] MEDS: PIPERACILLIN/TAZO 3.375 GM in SODIUM CHLORIDE 0.9% 100 ML IV ×2 (04:42→11:59)
[2022-02-11] MEDS: SODIUM CHLORIDE 0.9% 1,000 ML 150 ML IV (04:49)
--- NOTE | 2022-02-11 06:11 | PC.NURSE ---
Patient reporting worsening pain, requesting pain medication.
[2022-02-11] MEDS: fentaNYL 100 MCG/2 ML INJ 50 MCG IV (06:19)
[2022-02-11 06:35] LABS: Add Manual Diff / Slide Review NO; Basophils Absolute Auto 0 /uL (0-100); Basophils Percent Auto 0.2 % (0-2); Eosinophils Absolute Auto 100 /uL (0-450); Eosinophils Percent Auto 0.5 % (2-4); Hematocrit 36.7 % (41-53); Hemoglobin 12.3 g/dL (13.5-17.5); Lymphocytes Absolute Auto 500 /uL (1100-4500); Lymphocytes Percent Auto 4.4 % (25-40); Mean Corpuscular HGB Conc 33.6 % (30-36); Mean Corpuscular Hemoglobin 29.2 PG (26-34); Mean Corpuscular Volume 87.1 fL (80-100); Monocytes Absolute Auto 900 /uL (0-900); Monocytes Percent Auto 7.5 % (3-14); Neutrophils Absolute Auto 10400 /uL (1500-7000); Neutrophils Percent Auto 87.4 % (50-75); Platelet Count 163 X10^3/uL (150-400); Red Blood Cell Count 4.22 X10^6/uL (4.5-5.9); Red Cell Distribution Width 14.9 % (11.6-14.8); White Blood Cell Count 11.8 X10^3/uL (4.5-11.0)
[2022-02-11 06:45] LABS: Alanine Aminotransferase 177 IU/L (<50); Albumin Globulin Ratio 1.1 (1.0-2.8); Alkaline Phosphatase 202 U/L (38-126); Aspartate Aminotransferase 103 IU/L (17-59); Bilirubin Total 5.8 mg/dL (0.2-1.3); Blood Urea Nitrogen 19 mg/dL (9-20); Calcium 7.7 mg/dL (8.4-10.2); Carbon Dioxide 21 mmol/L (22-32); Chloride 104 mmol/L (98-107); Estimated Glomerular Filt Rate > 60 mL/min (>60); Globulin 2.7 g/dL (1.7-4.1); Glucose 85 mg/dL (80-110); Potassium 3.4 mmol/L (3.4-5.1); Sodium 135 mmol/L (137-145); Total Protein 5.7 g/dL (6.3-8.2)
[2022-02-11 07:15] LABS: HEMOLYSIS 20 (0-50)
[2022-02-11 07:16] LABS: Lipase 10692 U/L (23-300)
[2022-02-11] MEDS: ENOXAPARIN 100 MG/ML SYRINGE 85 MG SUBCUT (09:03)
--- NOTE | 2022-02-11 11:24 | PC.NURSE ---
spoke with christopher, [facility], no avail bed at this time.
--- NOTE | 2022-02-11 11:48 | PC.NURSE ---
pt ambulated around room and changed his shirt.
--- NOTE | 2022-02-11 13:38 | PC.NURSE ---
Update on pending transfer: Pt is on list at [facility]. [facility] is unable to accept due to lack of GI, [place], [facility], [facility] have no bed capacity and no wait list.
--- NOTE | 2022-02-11 16:36 | PC.NURSE ---
1530 This RN educated pt and pt's spouse on pt plan and the current treatments that he is receiving. Pt is A&Ox4 and has all of his questions answered. Pt is currently pain free and will notify this Rn if pain develops. VVS. Pt's IV assessed and are is bruised but vein is felt when flushed and no resistance is felt. Pt is NPO and glucose is check and at 78. Will continue to monitor and speak with MD about NPO/oral intake plan.
[2022-02-11 16:53] LABS: COVID19 -Nasal RAPID Negative (Negative)
== END 2022-02-11 18:02 | disposition short-term general hospital (02) ==
PROVIDERS: Emergency Medicine; Emergency Provider Emergency Medicine; PCP Family Medicine
DX: K80.42 Calculus of bile duct with acute cholecystitis without obstruction (principal); I48.20 Chronic atrial fibrillation, unspecified; Z79.01 Long term (current) use of anticoagulants; I95.9 Hypotension, unspecified; Z20.822 Contact with and (suspected) exposure to COVID-19
CPT/HCPCS: 36415; 74181; 76705; 80053; 81003; 82550; 82962; 83605; 83690; 84484; 85025; 85730; 87040; 87635; 93005; 96361; 96365; 96366; 96367; 96372; 96375; 96376; 99284; 99291; 99292; C9803; J1200; J1644; J1650; J2060; J2270; J2405; J2543; J3010

== ENCOUNTER → 2022-02-27 13:45 | Outpatient (CLI) | payer MEDICARE, OTHER, SELFPAY ==
--- NOTE | 2022-02-27 | DI.RAD.S_ITS ---
PROCEDURE: XR ABDOMEN 1V INDICATIONS: Calculus of bile duct without cholangitis or cholecystitis w TECHNIQUE: One view of the abdomen acquired. COMPARISON: [facility], MR, MR ABDOMEN WO CON, 02/09/2022, 17:26. [facility], CT, CT CHEST ABDOMEN PELVIS WITH CONTRAST, 09/08/2021, 10:21. FINDINGS: Surgical changes and devices: Right upper quadrant metal clips. Two stents project over the right abdomen, likely within the extrahepatic bile duct and downstream main pancreatic duct Bowel: Bowel gas pattern is nonobstructive. Soft tissues: No suspicious abdominal calcifications. Bones: No suspicious bony lesions. IMPRESSION: Two stents project over the right abdomen, likely within the extrahepatic bile duct and downstream main pancreatic duct respectively. Dictated by: Craig Curiel M.D. on 02/27/2022 at 17:49 Approved by: Craig Curiel M.D. on 02/27/2022 at 17:53
== END ==
PROVIDERS: PCP Family Medicine; Referring Provider Internal Medicine Gastroenterology; Visit Provider Internal Medicine Gastroenterology
DX: K80.50 Calculus of bile duct without cholangitis or cholecystitis without obstruction (principal)
CPT/HCPCS: 74018

== ENCOUNTER → 2022-03-03 10:36 | Outpatient (CLI) | payer MEDICARE, OTHER, SELFPAY ==
[2022-03-03 12:12] LABS: Add Manual Diff / Slide Review NO; Basophils Absolute Auto 100 /uL (0-100); Basophils Percent Auto 0.9 % (0-2); Eosinophils Absolute Auto 100 /uL (0-450); Eosinophils Percent Auto 1.7 % (2-4); Hematocrit 41.8 % (41-53); Hemoglobin 14.1 g/dL (13.5-17.5); Lymphocytes Absolute Auto 700 /uL (1100-4500); Lymphocytes Percent Auto 11.8 % (25-40); Mean Corpuscular HGB Conc 33.8 % (30-36); Mean Corpuscular Hemoglobin 29.6 PG (26-34); Mean Corpuscular Volume 87.4 fL (80-100); Monocytes Absolute Auto 300 /uL (0-900); Monocytes Percent Auto 5.4 % (3-14); Neutrophils Absolute Auto 4700 /uL (1500-7000); Neutrophils Percent Auto 80.2 % (50-75); Platelet Count 251 X10^3/uL (150-400); Red Blood Cell Count 4.78 X10^6/uL (4.5-5.9); Red Cell Distribution Width 15.9 % (11.6-14.8); White Blood Cell Count 5.9 X10^3/uL (4.5-11.0)
[2022-03-03 12:34] LABS: Alanine Aminotransferase 37 IU/L (<50); Albumin 4.2 g/dL (3.5-5.0); Albumin Globulin Ratio 1.6 (1.0-2.8); Alkaline Phosphatase 132 U/L (38-126); Aspartate Aminotransferase 39 IU/L (17-59); BUN Creatinine Ratio 16.3 (6-22); Bilirubin Total 0.9 mg/dL (0.2-1.3); Blood Urea Nitrogen 17 mg/dL (9-20); Calcium 9.3 mg/dL (8.4-10.2); Carbon Dioxide 29 mmol/L (22-32); Chloride 88 mmol/L (98-107); Estimated Glomerular Filt Rate > 60 mL/min (>60); Globulin 2.7 g/dL (1.7-4.1); Glucose 140 mg/dL (80-110); HEMOLYSIS < 15 (0-50); Sodium 129 mmol/L (137-145); Total Protein 6.9 g/dL (6.3-8.2)
[2022-03-04 10:20] LABS: Thyroid Stimulating Hormone 95.5 uIU/mL (0.47-4.68)
[2022-03-17 18:22] LABS: T4,Free, Direct Dialysis <0.20 ng/dL (.)
== END ==
PROVIDERS: Internal Medicine Medical Oncology; PCP Family Medicine; Referring Provider Family Medicine; Visit Provider Family Medicine
DX: C43.9 Malignant melanoma of skin, unspecified (principal); E03.2 Hypothyroidism due to medicaments and other exogenous substances; E03.9 Hypothyroidism, unspecified
CPT/HCPCS: 36415; 80053; 84439; 84443; 85025

== ENCOUNTER → 2022-04-30 18:21 | Outpatient (CLI) | payer MEDICARE, OTHER, SELFPAY ==
--- NOTE | 2022-04-30 18:22 | DI.MRI.S_ITS ---
PROCEDURE: MR HEAD/BRAIN WO/W CON INDICATIONS: dizziness, falling episode, melanoma TECHNIQUE: Noncontrast axial T1 spin echo, axial T2 fast spin echo, sagittal and axial FLAIR, coronal T2 fast spin echo, axial gradient echo, axial diffusion and ADC through the brain. After the administration of contrast, axial and coronal and sagittal T1 spin echo with fat saturation through the brain. COMPARISON: [facility], MR, MR HEAD/BRAIN WO/W CON, 10/30/2021, 7:34. FINDINGS: Image quality: Excellent. CSF spaces: Basal cisterns are patent. No extra-axial fluid collections. Ventricles are normal in size and shape. Brain: No midline shift. No intracranial bleeds or masses. No abnormal intracranial enhancement. There is cerebral volume loss for age. There is periventricular white matter chronic small vessel ischemic change. The brainstem appears normal. Diffusion-weighted images demonstrate no acute ischemic insults. No chronic ischemic insults. Normal intravascular flow voids are present. Skull and face: Calvarial marrow is normal in signal. Orbits appear normal. Sinuses: Bilateral maxillary sinus mucosal thickening. There is fluid in the right mastoids. IMPRESSION: 1. No acute intracranial abnormalities. No intracranial mass or abnormal enhancement. 2. Cerebral volume loss and chronic microvascular ischemic changes. 3. Bilateral maxillary sinusitis. 4. Fluid in the mastoids. Recommend clinical correlation for mastoiditis. Dictated by: Lucius Preciado M.D. on 04/30/2022 at 20:16 Approved by: Lucius Preciado M.D. on 04/30/2022 at 20:36
== END ==
PROVIDERS: PCP Family Medicine; Referring Provider Internal Medicine Medical Oncology; Visit Provider Internal Medicine Medical Oncology
DX: R42 Dizziness and giddiness (principal); C43.9 Malignant melanoma of skin, unspecified; R26.9 Unspecified abnormalities of gait and mobility; J32.0 Chronic maxillary sinusitis
CPT/HCPCS: 70553; A9579

== ENCOUNTER 2022-05-29 10:18 | Observation (INO) | payer MEDICARE, OTHER, SELFPAY ==
[2022-05-29] VITALS (12 sets, daily range): BP systolic 123–158; BP diastolic 60–81; PULSE 73–122; RESP 12–29; TEMP 36.2; O2SAT 94–97
--- NOTE | 2022-05-29 10:28 | DI.CT.S_ITS ---
PROCEDURE: CT ANGIO HEAD AND NECK INDICATIONS: word trouble, with cancer on anticoagulation TECHNIQUE: After the administration of intravenous contrast, 1 mm thick sections acquired from the aortic arch through the [place]. Post-contrast 4.5 mm thick sections then re-acquired from the foramen magnum to the vertex. 3-dimensional [id number] (MIP) and/or volume rendering reformats were acquired of the central intracranial vasculature and neck separately. For radiation dose reduction, the following was used: automated exposure control, adjustment of mA and/or kV according to patient size. COMPARISON: [facility], CT, CT STROKE, 05/29/2022, 10:33. [facility], NM, NM PET CT FUSION WHOLE BODY, 05/27/2022, 8:39. FINDINGS: Image quality: Excellent. BRAIN: The ventricular system and cortical sulci demonstrate atrophy, consistent for the patient's stated age. There are areas of hypodensity within the periventricular and subcortical white matter. There is no acute intra-or extra axial fluid collection. No acute hemorrhage, mass lesion or midline shift. Brainstem is unremarkable. Globes are symmetrical. Sinuses demonstrate mucous retention cyst versus polyp in the left maxillary sinus. Osseous structures are intact. HEAD CT ANGIOGRAPHY: Anterior circulation: Intracranial internal carotid arteries are normal in size and flow. The flow within the paired anterior cerebral arteries is normal and symmetric. The flow within the middle cerebral arteries is normal and symmetric. The anterior communicating artery is seen. No aneurysms are seen. Posterior circulation: Vertebral arteries are codominant. Visualized portions of the vertebral arteries demonstrate normal caliber, and join to form a normal appearing basilar artery. Flow within the posterior cerebral arteries is normal and symmetric. No aneurysms are seen. NECK CT ANGIOGRAPHY: The origins of the left and right common, internal and external carotid arteries demonstrate no areas of hemodynamically significant stenosis, vascular occlusion or aneurysmal dilation. Origins of the left and right vertebral arteries demonstrate no areas of hemodynamically significant stenosis, vascular occlusion or aneurysmal dilation. 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 Limited, visualized portions of the subclavian vasculature are unremarkable. IMPRESSION: 1. No acute intracranial process. 2. Moderate atrophy and chronic microvascular ischemic changes. 3. No areas of hemodynamically significant stenosis, vascular occlusion or aneurysmal dilation within the anterior or posterior circulation. 4. No areas of hemodynamically significant stenosis, vascular occlusion or aneurysmal dilation within the neck vasculature. Any quantitative measurements of stenosis were performed using NASCET criteria. Dictated by: Lakshmi Mai M.D. on 05/29/2022 at 11:24 Approved by: Lakshmi Mai M.D. on 05/29/2022 at 11:35
--- NOTE | 2022-05-29 10:28 | DI.CT.S_ITS ---
PROCEDURE: CT STROKE INDICATIONS: word trouble, with cancer on anticoagulation TECHNIQUE: Noncontrast 4.5 mm thick angled axial sections acquired from the foramen magnum to the vertex, with coronal reformats. For radiation dose reduction, the following was used: automated exposure control, adjustment of mA and/or kV according to patient size. COMPARISON: None. FINDINGS: Image quality: Excellent. CSF spaces: Basal cisterns are patent. No extra-axial fluid collections. The ventricles are symmetric in size and shape. Brain: No intracranial bleeds or masses. There is cerebral volume loss for age, with resultant ventricular and sulcal prominence. There are periventricular and deep white matter chronic small vessel ischemic changes. There is intracranial internal carotid artery atherosclerosis. Skull and face: Calvarium and visualized facial bones appear intact, without suspicious lesions. Sinuses: There is an air-fluid level in the left maxillary sinus. Mastoids are clear. IMPRESSION: 1. No acute intracranial abnormalities. 2. Cerebral volume loss and chronic microvascular ischemic changes. 3. Left maxillary sinus fluid with and air-fluid level consistent with sinusitis. This study fulfills neurological imaging criteria for inclusion or exclusion of acute stroke therapies based on available published neurological guidelines. Dictated by: Lucius Preciado M.D. on 05/29/2022 at 10:46 Approved by: Lucius Preciado M.D. on 05/29/2022 at 10:48
--- NOTE | 2022-05-29 10:29 | DI.RAD.S_ITS ---
PROCEDURE: XR CHEST 1V INDICATIONS: stroke TECHNIQUE: One view of the chest was acquired. COMPARISON: None. FINDINGS: Surgical changes and devices: None. Lungs and pleura: Lungs are clear. No pleural effusions or pneumothorax. Mediastinum: Mediastinal contours appear normal. Heart size is normal. Bones and chest wall: No suspicious bony lesions. Overlying soft tissues appear unremarkable. IMPRESSION: No acute pulmonary process. Dictated by: Lakshmi Mai M.D. on 05/29/2022 at 11:03 Approved by: Lakshmi Mai M.D. on 05/29/2022 at 11:04
--- NOTE | 2022-05-29 10:50 | ED_ITS ---
HPI - Neuro Symptoms/Deficit General Chief Complaint: Neuro Symptoms/Deficit Stated Complaint: pt thinks he is having a stroke, sta 4 melan Time Seen by Provider: 05/29/22 10:22 Source: patient Mode of arrival: Ambulatory History of Present Illness HPI Narrative: Patient is a 81-year-old male history of atrial fibrillation on Pradaxa, met astatic melanoma presenting today with difficulty with word finding. Last known well was around 9:00 a.m.. He does earlier were putting a shelf together without any difficulty. He was reading an e-mail when he was reading it he did not think it made any sense asked his to clarify at that point it was determined that he was having some more trouble finding. He is no numbness tingling or weakness. He is able to ambulate. He denies any recent illness. Although in January 2022 he stayed in the emergency department for number of days with choledocholithiasis, but that has now resolved On Anticoagulants: Yes (h/o afib) Related Data Home Medications Medication Instructions Recorded Confirmed atenolol 50 mg tablet 50 mg PO DAILY 10/23/21 04/29/22 dabigatran etexilate 150 mg 150 mg PO BID 10/23/21 04/29/22 capsule (Pradaxa) docusate sodium 100 mg capsule 100 mg PO BID 04/01/22 04/29/22 (Colace) acetaminophen 325 mg capsule 650 mg PO Q4H PRN Pain (Scale 04/29/22 04/29/22 (Tylenol) Score 4-6) lisinopril 10 mg tablet 10 mg PO DAILY 04/29/22 04/29/22 pantoprazole 40 mg tablet,delayed 40 mg PO BID 04/29/22 04/29/22 release Previous Rx's Medication Instructions Recorded atorvastatin 40 mg tablet See Rx Instructions .Route 04/16/22 .COMPLEX #90 tabs levothyroxine 75 mcg tablet 75 mcg PO DAILY #30 tabs 04/29/22 (Synthroid) lorazepam 1 mg tablet (Ativan) 1 mg PO PRN PRN Nausea #7 tabs 04/29/22 scopolamine base 1 mg over 3 days 1 patch transdermal Q3D PRN motion 05/04/22 transdermal patch sickness #4 ea amoxicillin 875 mg-potassium 1 tab PO BID #14 tabs 05/05/22 clavulanate 125 mg tablet Allergies Allergy/AdvReac Type Severity Reaction Status Date / Time No Known Drug Allergies Allergy Verified 02/20/22 13:16 Review of Systems Review of Systems ROS Unobtainable: All systems reviewed & are unremarkable except as noted in HPI and below Hematologic/Lymphatic On Anticoagulants: Yes (h/o afib) Patient History Medical History Chicken pox (~1945) Hyperlipidemia Hypertension Measles (~194) Metastatic melanoma Mumps (~194) Shingles (~1993) Skin cancer (~2004) Surgical History Anesthesia History of appendectomy Status post Mohs surgery Family History Father Kidney failure Family/Other Substance abuse Social History Smoking Status: Never smoker Smoking Status: Never smoker alcohol intake frequency: 0-2 drinks per day Substance Use Type: does not use Exam Initial Vital Signs Initial Vital Signs: Vital Signs Pulse Rate 106 H 05/29/22 10:25 Respiratory Rate 29 H 05/29/22 10:25 Pulse Oximetry 97 05/29/22 10:25 GENERAL: Alert well-appearing 81-year-old male and in no acute distress. HEENT: Head atraumatic,EOMI, pupils reactive, face symmetric, moist mucous membranes CARDIOVASCULAR: Irregularly irregular without murmur RESPIRATORY: Breath sounds equal bilaterally, no wheezes rales or rhonchi. ABDOMEN: Soft, nontender. Normoactive bowel sounds all 4 quadrants. No guarding or rebound. EXTREMITIES: Normal range of motion, no clubbing or edema. Neurovascularly intact NEUROLOGICAL: Alert and oriented x4.Normal gait and speech. Cranial nerves II through XII grossly intact. Good [id number], good wzmf-ji-[id number], strength equal bilaterally, no slurring of speech but does have trouble finding words sensation in tact to soft touch bilaterally, no visual changes, no facial droop SKIN: Warm, dry, no laceration, no petechiae, no rashes or lesions. Scores NIH Stroke Scale Level of Conciousness: Alert, keenly responsive Ask month/age: Answers both questions correctly. Open/close eyes, close hand: Performs both tasks correctly Best gaze horizontal: Normal Visual cain: No visual loss Facial palsy: Normal symetrical movement Left arm drift: No drift for full 10 sec Right arm drift: No drift for full 10 sec Left leg drift: No drift for full 5 sec Right leg drift: No drift for full 5 sec Limb ataxia: Absent Sensory on face/arms/legs: Normal, no sensory loss Best language: Mild to moderate, slurs some words Dysarthria: Normal Extinction or inattention: No abnormality Total NIH Stroke scale score: 1 Course Orders Ordered: ED Orders 05/29/22 10:[address] angio head and neck Stat A1C [Hemoglobin A1C% w Est Avg Glu] Urgent Complete Blood Count AUTO DIFF Stat Comprehensive Metabolic Panel Stat Lipase Stat Magnesium Urgent Partial Thromboplastin Time Stat Prothrombin Time INR Stat Troponin & CK Cardiac Panel Stat 05/29/22 10:29 XR chest 1V Stat 05/29/22 10:38 Lipid Panel Urgent 05/29/22 11:48 COVID19 -Nasal RAPID/Pre-Proc Stat 05/29/22 12:27 EKG-12 Lead Stat 05/29/22 12:29 Consult to Occupational Therapy Evaluate & Treat Consult to Physical Therapy Evaluate & Treat 05/29/22 12:30 EC echo doppler complete Urgent 05/29/22 12:31 MR head/brain wo con Stat 05/30/22 05:00 BMP [Basic Metabolic Panel] DAILY CBC Auto Diff [Complete Blood Count AUTO DIFF] DAILY 05/31/22 05:00 BMP [Basic Metabolic Panel] DAILY CBC Auto Diff [Complete Blood Count AUTO DIFF] DAILY 06/01/22 05:00 BMP [Basic Metabolic Panel] DAILY CBC Auto Diff [Complete Blood Count AUTO DIFF] DAILY Acetaminophen (Acetaminophen 325 Mg Tablet) 650 mg PO Q6H PRN PRN Reason: Fever/Mild Pain (1-3) Sodium Chloride (Normal Saline 0.9%) 1,000 mls @ 150 mls/hr IV CONT KAMI Last Admin: 05/29/22 11:30 Dose: 150 mls/hr Documented By: NR Labetalol HCl (Labetalol 20 Mg/4 Ml Syringe) 10 mg IV Q5H PRN PRN Reason: SBP >220 or DBP >110 Melatonin (Melatonin 3 Mg Tablet) 6 mg PO BEDTIME PRN PRN Reason: Insomnia Naloxone HCl (Naloxone 0.4 Mg/Ml Vial) 0.2 mg IV Q2MIN PRN PRN Reason: Opiate Reversal Polyethylene Glycol (Polyethylene Glycol 3350 17 Gm Powd.Pack) 17 gm PO DAILY PRN PRN Reason: Constipation Sennosides (Sennosides 8.6 Mg Tablet) 8.6 mg PO BID PRN PRN Reason: Constipation Discontinued Medications Lorazepam (Lorazepam 2 Mg/Ml Inj) 0.5 mg IV NOW ONE Stop: 05/29/22 12:42 Last Admin: 05/29/22 12:48 Dose: 0.5 mg Documented By: NR Vital Signs Vital signs: Vital Signs - 8 hr 05/29/22 10:26 05/29/22 10:25 05/29/22 10:26 Temperature 97.1 F L Pulse Rate 122 H 106 H 98 H Respiratory Rate 22 29 H 28 H Blood Pressure 154/77 H Pulse Oximetry 97 97 97 Oxygen Delivery Method Room Air 05/29/22 10:26 05/29/22 10:43 05/29/22 10:48 Temperature Pulse Rate 86 84 Respiratory Rate 17 22 Blood Pressure 149/81 H Pulse Oximetry 97 96 Oxygen Delivery Method 05/29/22 10:48 05/29/22 11:00 05/29/22 11:00 Temperature Pulse Rate 85 Respiratory Rate 18 Blood Pressure 142/62 H 135/62 Pulse Oximetry 95 Oxygen Delivery Method 05/29/22 11:15 05/29/22 11:15 05/29/22 11:30 Temperature Pulse Rate 80 Respiratory Rate 15 Blood Pressure 135/62 126/62 Pulse Oximetry 95 Oxygen Delivery Method 05/29/22 11:30 05/29/22 11:45 05/29/22 11:45 Temperature Pulse Rate 78 79 Respiratory Rate 13 17 Blood Pressure 123/60 Pulse Oximetry 94 95 Oxygen Delivery Method 05/29/22 12:00 05/29/22 12:00 Temperature Pulse Rate 73 Respiratory Rate 15 Blood Pressure 143/68 H Pulse Oximetry 94 Oxygen Delivery Method MDM - Neuro Symptoms/Deficit Lab Data Result diagrams: 05/29/22 10:28 05/29/22 10:28 Labs: Lab Results 05/29/22 05/29/22 05/29/22 Range/Units 10:28 10:28 10:28 WBC 5.0 (4.5-11.0) X10^3/uL RBC 4.58 (4.5-5.9) X10^6/uL Hgb 14.1 (13.5-17.5) g/dL Hct 41.6 (41-53) % MCV 90.9 (80-100) fL MCH 30.8 (26-34) PG MCHC 33.9 (30-36) % RDW 13.9 (11.6-14.8) % Plt Count 207 (150-400) X10^3/uL Neut % (Auto) 59.2 (50-75) % Lymph % (Auto) 21.5 L (25-40) % [place] % (Auto) 10.9 (3-14) % Eos % (Auto) 7.3 H (2-4) % Baso % (Auto) 1.1 (0-2) % Neut # (Auto) 3000 (8001-4288) /uL Lymph # (Auto) 1100 (7011-9920) /uL [place] # (Auto) 500 (0-900) /uL Eos # (Auto) 400 (0-450) /uL Baso # (Auto) 100 (0-100) /uL PT 13.6 H (10.1-12.7) SECONDS INR 1.2 (0.9-1.3) APTT 46 H (26-36) SECONDS Sodium 134 L (137-145) mmol/L Potassium 3.6 (3.4-5.1) mmol/L Chloride 97 L (98-107) mmol/L Carbon Dioxide 26 (22-32) mmol/L BUN 15 (9-20) mg/dL Creatinine 0.82 (0.66-1.25) mg/dL Estimated GFR > 60 (>60) mL/min BUN/Creatinine Ratio 18.3 (6-22) Glucose 129 H (80-110) mg/dL Hemoglobin A1c (4.0-6.0) % Calcium 9.4 (8.4-10.2) mg/dL Magnesium (1.6-2.3) mg/dL Total Bilirubin 1.2 (0.2-1.3) mg/dL AST 29 (17-59) IU/L ALT 21 (<50) IU/L Alkaline Phosphatase 58 (38-126) U/L Total Creatine Kinase 43 L (55-170) U/L CK-MB (CK-2) TNP CK-MB (CK-2) Rel Index TNP Troponin I < 0.012 (0.01-0.034) ng/mL Total Protein 7.1 (6.3-8.2) g/dL Albumin 4.3 (3.5-5.0) g/dL Globulin 2.8 (1.7-4.1) g/dL Albumin/Globulin Ratio 1.5 (1.0-2.8) Triglycerides (35-150) mg/dL Cholesterol (140-199) mg/dL LDL Cholesterol, Calc (<100) mg/dL HDL Cholesterol (40-60) mg/dL Lipase 66 (23-300) U/L SARS-CoV-2 (PCR) (Negative) 05/29/22 05/29/22 05/29/22 Range/Units 10:28 10:28 10:38 WBC (4.5-11.0) X10^3/uL RBC (4.5-5.9) X10^6/uL Hgb (13.5-17.5) g/dL Hct (41-53) % MCV (80-100) fL MCH (26-34) PG MCHC (30-36) % RDW (11.6-14.8) % Plt Count (150-400) X10^3/uL Neut % (Auto) (50-75) % Lymph % (Auto) (25-40) % [place] % (Auto) (3-14) % Eos % (Auto) (2-4) % Baso % (Auto) (0-2) % Neut # (Auto) (4793-9081) /uL Lymph # (Auto) (5047-5512) /uL [place] # (Auto) (0-900) /uL Eos # (Auto) (0-450) /uL Baso # (Auto) (0-100) /uL PT (10.1-12.7) SECONDS INR (0.9-1.3) APTT (26-36) SECONDS Sodium (137-145) mmol/L Potassium (3.4-5.1) mmol/L Chloride (98-107) mmol/L Carbon Dioxide (22-32) mmol/L BUN (9-20) mg/dL Creatinine (0.66-1.25) mg/dL Estimated GFR (>60) mL/min BUN/Creatinine Ratio (6-22) Glucose (80-110) mg/dL Hemoglobin A1c 5.6 (4.0-6.0) % Calcium (8.4-10.2) mg/dL Magnesium 1.8 (1.6-2.3) mg/dL Total Bilirubin (0.2-1.3) mg/dL AST (17-59) IU/L ALT (<50) IU/L Alkaline Phosphatase (38-126) U/L Total Creatine Kinase (55-170) U/L CK-MB (CK-2) CK-MB (CK-2) Rel Index Troponin I (0.01-0.034) ng/mL Total Protein (6.3-8.2) g/dL Albumin (3.5-5.0) g/dL Globulin (1.7-4.1) g/dL Albumin/Globulin Ratio (1.0-2.8) Triglycerides 129 (35-150) mg/dL Cholesterol 166 (140-199) mg/dL LDL Cholesterol, Calc 105 H (<100) mg/dL HDL Cholesterol 35 L (40-60) mg/dL Lipase (23-300) U/L SARS-CoV-2 (PCR) (Negative) 05/29/22 Range/Units 11:48 WBC (4.5-11.0) X10^3/uL RBC (4.5-5.9) X10^6/uL Hgb (13.5-17.5) g/dL Hct (41-53) % MCV (80-100) fL MCH (26-34) PG MCHC (30-36) % RDW (11.6-14.8) % Plt Count (150-400) X10^3/uL Neut % (Auto) (50-75) % Lymph % (Auto) (25-40) % [place] % (Auto) (3-14) % Eos % (Auto) (2-4) % Baso % (Auto) (0-2) % Neut # (Auto) (6846-7081) /uL Lymph # (Auto) (7720-8156) /uL [place] # (Auto) (0-900) /uL Eos # (Auto) (0-450) /uL Baso # (Auto) (0-100) /uL PT (10.1-12.7) SECONDS INR (0.9-1.3) APTT (26-36) SECONDS Sodium (137-145) mmol/L Potassium (3.4-5.1) mmol/L Chloride (98-107) mmol/L Carbon Dioxide (22-32) mmol/L BUN (9-20) mg/dL Creatinine (0.66-1.25) mg/dL Estimated GFR (>60) mL/min BUN/Creatinine Ratio (6-22) Glucose (80-110) mg/dL Hemoglobin A1c (4.0-6.0) % Calcium (8.4-10.2) mg/dL Magnesium (1.6-2.3) mg/dL Total Bilirubin (0.2-1.3) mg/dL AST (17-59) IU/L ALT (<50) IU/L Alkaline Phosphatase (38-126) U/L Total Creatine Kinase (55-170) U/L CK-MB (CK-2) CK-MB (CK-2) Rel Index Troponin I (0.01-0.034) ng/mL Total Protein (6.3-8.2) g/dL Albumin (3.5-5.0) g/dL Globulin (1.7-4.1) g/dL Albumin/Globulin Ratio (1.0-2.8) Triglycerides (35-150) mg/dL Cholesterol (140-199) mg/dL LDL Cholesterol, Calc (<100) mg/dL HDL Cholesterol (40-60) mg/dL Lipase (23-300) U/L SARS-CoV-2 (PCR) Negative (Negative) Imaging Data CT scan - head: Radiologist's Impression: nt: Deion Mello MR#: [id number] : 1940 Acct:[id number] Age/Sex: 81 / M Date of Service: 05/29/22 Loc: ED Accession Number: [id number] ?? Procedure: CT Stroke Ordering Provider: Leslee Pop D.O. ADDENDUMThis report includes an Addendum and supersedes previous reports for this exam. ? ? ? PROCEDURE:? CT STROKE ? INDICATIONS:? word trouble, with cancer on anticoagulation ? TECHNIQUE:? Noncontrast 4.5 mm thick angled axial sections acquired from the foramen magnum to the vertex, with coronal reformats.? For radiation dose reduction, the following was used:? automated exposure control, adjustment of mA and/or kV according to patient size.? ? COMPARISON:? None. ? FINDINGS:? Image quality:? Excellent.? ? CSF spaces:? Basal cisterns are patent.? No extra-axial fluid collections.? The ventricles are symmetric in size and shape.? ? Brain:? No intracranial bleeds or masses.? There is cerebral volume loss for age, with resultant ventricular and sulcal prominence.? There are periventricular and deep white matter chronic small vessel ischemic changes.? There is intracranial internal carotid artery atherosclerosis.? ? Skull and face:? Calvarium and visualized facial bones appear intact, without suspicious lesions.? ? Sinuses:? There is an air-fluid level in the left maxillary sinus.? Mastoids are clear.? ? IMPRESSION:? ? 1. No acute intracranial abnormalities. ? 2. Cerebral volume loss and chronic microvascular ischemic changes. ? 3.? Left maxillary sinus fluid with and air-fluid level consistent with sinusitis. ? This study fulfills neurological imaging criteria for inclusion or exclusion of acute stroke therapies based on available published neurological guidelines.? ? ? Dictated by: Lucius Preciado M.D. on 05/29/2022 at 10:46 ? ? Approved by: Lucius Preciado M.D. on 05/29/2022 at 10:48 ? ? ? ADDENDUM:? The result was discussed with Dr. Pop on 05/29/2022 at 1045 hours. ? ? ? Dictated by: Lucius Preciado M.D. on 05/29/2022 at 10:52 ? ? Approved by: Lucius Preciado M.D. on 05/29/2022 at 10:53 ? Addendum Dictated By: Lucius Preciado MD Addendum Signed By: Addendum Cosigned By: DD/ TD/TT: 05/29/22 PROCEDURE:? CT STROKE ? INDICATIONS:? word trouble, with cancer on anticoagulation ? TECHNIQUE:? Noncontrast 4.5 mm thick angled axial sections acquired from the foramen magnum to the vertex, with coronal reformats.? For radiation dose reduction, the following was used:? automated exposure control, adjustment of mA and/or kV according to patient size.? ? COMPARISON:? None. ? FINDINGS:? Image quality:? Excellent.? ? CSF spaces:? Basal cisterns are patent.? No extra-axial fluid collections.? The ventricles are symmetric in size and shape.? ? Brain:? No intracranial bleeds or masses.? There is cerebral volume loss for age, with resultant ventricular and sulcal prominence.? There are periventricular and deep white matter chronic small vessel ischemic changes.? There is intracranial internal carotid artery atherosclerosis.? ? Skull and face:? Calvarium and visualized facial bones appear intact, without suspicious lesions.? ? Sinuses:? There is an air-fluid level in the left maxillary sinus.? Mastoids are clear.? ? IMPRESSION:? ? 1. No acute intracranial abnormalities. ? 2. Cerebral volume loss and chronic microvascular ischemic changes. ? 3.? Left maxillary sinus fluid with and air-fluid level consistent with sinusitis. ? This study fulfills neurological imaging criteria for inclusion or exclusion of acute stroke therapies based on available published neurological guidelines.? ? ? Dictated by: Lucius Preciado M.D. on 05/29/2022 at 10:46 ? ? Approved by: Lucius Preciado M.D. on 05/29/2022 at 10:48 ? CTA - brain/neck: Radiologist's Impression: CT Scan Report Signed Patient: Deion Mello MR#: [id number] : 1940 Acct:[id number] Age/Sex: 81 / M Date of Service: 05/29/22 Loc: ED Accession Number: [id number] ?? Procedure: CT angio head and neck Ordering Provider: Leslee Pop D.O. PROCEDURE:? CT ANGIO HEAD AND NECK ? INDICATIONS:? word trouble, with cancer on anticoagulation ? TECHNIQUE:? After the administration of intravenous contrast, 1 mm thick sections acquired from the aortic arch through the [place] of [place].? Post-contrast 4.5 mm thick sections then re-acquired from the foramen magnum to the vertex.? 3-dimensional jczonwf-bmcmpmuim-mlqdokmmjr (MIP) and/or volume rendering reformats were acqui red of the central intracranial vasculature and neck separately. For radiation dose reduction, the following was used:? automated exposure control, adjustment of mA and/or kV according to patient size.? ? COMPARISON:? [facility], CT, CT STROKE, 05/29/2022, 10:33.? [facility], [place], NM PET CT FUSION WHOLE BODY, 05/27/2022, 8:39. ? FINDINGS:? Image quality:? Excellent.? ? BRAIN:? The ventricular system and cortical sulci demonstrate atrophy, consistent for the patient's stated age. There are areas of hypodensity within the periventricular and subcortical white matter.? There is no acute intra-or extra axial fluid collection. No acute hemorrhage, mass lesion or midline shift. Brainstem is unremarkable. Globes are symmetrical. Sinuses demonstrate mucous retention cyst versus polyp in the left maxillary sinus.? Osseous structures are intact. ? HEAD CT ANGIOGRAPHY:? Anterior circulation:? Intracranial internal carotid arteries are normal in size and flow.? The flow within the paired anterior cerebral arteries is normal and symmetric.? The flow within the middle cerebral arteries is normal and symmetric.? The anterior communicating artery is seen.? No aneurysms are seen.? ? Posterior circulation:? Vertebral arteries are codominant.? Visualized portions of the vertebral arteries demonstrate normal caliber, and join to form a normal appearing basilar artery.? Flow within the posterior cerebral arteries is normal and symmetric.? No aneurysms are seen.? ? NECK CT ANGIOGRAPHY:? The origins of the left and right common, internal and external carotid arteries demonstrate no areas of hemodynamically significant stenosis, vascular occlusion or aneurysmal dilation. Origins of the left and right vertebral arteries demonstrate no areas of hemodynamically significant stenosis, vascular occlusion or aneurysmal dilation. 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 Limited, visualized portions of the subclavian vasculature are unremarkable. ? ? IMPRESSION:? ? 1. No acute intracranial process. ? 2. Moderate atrophy and chronic microvascular ischemic changes. ? 3. No areas of hemodynamically significant stenosis, vascular occlusion or aneurysmal dilation within the anterior or posterior circulation. ? 4. No areas of hemodynamically significant stenosis, vascular occlusion or aneurysmal dilation within the neck vasculature. ? Any quantitative measurements of stenosis were performed using NASCET criteria.? ? ? Dictated by: Lakshmi Mai M.D. on 05/29/2022 at 11:24 ? ? Approved by: Lakshmi Mai M.D. on 05/29/2022 at 11:35 ? Chest x-ray: Radiologist's Impression: XRay Report Signed Patient: Deion Mello MR#: [id number] : 1940 Acct:[id number] Age/Sex: 81 / M Date of Service: 05/29/22 Loc: ED Accession Number: [id number] ?? Procedure: XR chest 1V Ordering Provider: Leslee Pop D.O. PROCEDURE:? XR CHEST 1V ? INDICATIONS:? stroke ? TECHNIQUE:? One view of the chest was acquired.? ? COMPARISON:? None. ? FINDINGS:? ? Surgical changes and devices:? None.? ? Lungs and pleura:? Lungs are clear.? No pleural effusions or pneumothorax.? ? Mediastinum:? Mediastinal contours appear normal.? Heart size is normal.? ? Bones and chest wall:? No suspicious bony lesions.? Overlying soft tissues appear unremarkable.? ? IMPRESSION:? No acute pulmonary process. ? ? Dictated by: Lakshmi Mai M.D. on 05/29/2022 at 11:03 ? ? ECG Data Interpretation: Atrial fibrillation rate [address] changes MDM Narrative Medical decision making narrative: Patient 81-year-old male history of atrial fibrillation on Pradaxa history of metastatic melanoma presenting today as a code stroke. Last known well was around 9:00 a.m. now having word-finding trouble. Head CT is negative Dr. Preciado called me at 10:47 a.m. the results. Patient is re-examined by myself. Speech is actually improved. Patient is not a tPA candidate he is on Pradaxa having improving symptoms. He certainly is at risk for CVA and TIA with history of atrial fibrillation. CT angio does not show any large vessel occlusion. To work is overall reassuring without leukocytosis electrolyte abnormality or acute kidney injury MDM CC: Difficulty speaking Complicating co-morbidities: Metastatic melanoma, atrial fibrillation Corroborating data: Data collected from: Chart Medical records reviewed: [ ] Differential considered: CVA, metastatic disease brain mass, hemorrhagic stroke, TIA Exam documented above, pertinent findings include: Difficulty finding words Lab Test results independently reviewed as above. Pertinent findings: As above Independently reviewed EKG as above Imaging studies independently reviewed: See above Consultations: Hospitalist Treatments: No treatment indicated. Not a tPA candidate, already taking Pradaxa no aspirin require Re-evaluations: Improvement in speech Discussion:[ ] Diagnosis: TIA Disposition: see below, along with detailed discharge instructions that have been reviewed with patient as well as indications for ED re-evaluation and additional outpatient follow up Discharge Plan Departure Patient Disposition: Admitted as Observation Clinical Impression: Transient cerebral ischemia Admit Date/Time: 05/29/22 12:32 Admit Provider: Jack Hollins
[2022-05-29 11:15] LABS: Add Manual Diff / Slide Review NO; Basophils Absolute Auto 100 /uL (0-100); Basophils Percent Auto 1.1 % (0-2); Eosinophils Absolute Auto 400 /uL (0-450); Eosinophils Percent Auto 7.3 % (2-4); Hematocrit 41.6 % (41-53); Hemoglobin 14.1 g/dL (13.5-17.5); Lymphocytes Absolute Auto 1100 /uL (1100-4500); Lymphocytes Percent Auto 21.5 % (25-40); Mean Corpuscular HGB Conc 33.9 % (30-36); Mean Corpuscular Hemoglobin 30.8 PG (26-34); Mean Corpuscular Volume 90.9 fL (80-100); Monocytes Absolute Auto 500 /uL (0-900); Monocytes Percent Auto 10.9 % (3-14); Neutrophils Absolute Auto 3000 /uL (1500-7000); Neutrophils Percent Auto 59.2 % (50-75); Platelet Count 207 X10^3/uL (150-400); Red Blood Cell Count 4.58 X10^6/uL (4.5-5.9); Red Cell Distribution Width 13.9 % (11.6-14.8)
[2022-05-29 11:22] LABS: INR 1.2 (0.9-1.3); Prothrombin Time 13.6 SECONDS (10.1-12.7)
[2022-05-29 11:25] LABS: PTT Partial Thromboplastin Tim 46 SECONDS (26-36)
[2022-05-29] MEDS: SODIUM CHLORIDE 0.9% 1,000 ML 150 ML IV (11:30)
[2022-05-29 11:32] LABS: Alanine Aminotransferase 21 IU/L (<50); Albumin 4.3 g/dL (3.5-5.0); Albumin Globulin Ratio 1.5 (1.0-2.8); Alkaline Phosphatase 58 U/L (38-126); Aspartate Aminotransferase 29 IU/L (17-59); BUN Creatinine Ratio 18.3 (6-22); Bilirubin Total 1.2 mg/dL (0.2-1.3); Blood Urea Nitrogen 15 mg/dL (9-20); Calcium 9.4 mg/dL (8.4-10.2); Carbon Dioxide 26 mmol/L (22-32); Chloride 97 mmol/L (98-107); Creatine Kinase 43 U/L (55-170); Estimated Glomerular Filt Rate > 60 mL/min (>60); Globulin 2.8 g/dL (1.7-4.1); Glucose 129 mg/dL (80-110); HEMOLYSIS < 15 (0-50); Lipase 66 U/L (23-300); Potassium 3.6 mmol/L (3.4-5.1); Sodium 134 mmol/L (137-145); Total Protein 7.1 g/dL (6.3-8.2)
[2022-05-29 11:43] LABS: Troponin I < 0.012 ng/mL (0.01-0.034)
--- NOTE | 2022-05-29 12:11 | PC.NURSE ---
pt had breakfast and put together a shelf with spouse this morning, then went into his office to read some emails. he called his in and said these emails are incoherent and dont make sense. states the emails were fine and the patient was misreading words. he thought the word 'WILL' was 'OTHER'. he could not remember the name of his blood thinners. he just didnt feel right. upon arrival, slight difficulty with words but improvement from what he was feeling earlier.
--- NOTE | 2022-05-29 12:31 | DI.MRI.S_ITS ---
PROCEDURE: MR HEAD/BRAIN WO CON INDICATIONS: TIA TECHNIQUE: Non-contrast axial T1 spin echo, axial T2 fast spin echo, sagittal and axial FLAIR, coronal T2 fast spin echo, axial gradient echo, axial diffusion and ADC through the brain. COMPARISON: [facility], CT, CT ANGIO HEAD AND NECK, 05/29/2022, 10:33. [facility], CT, CT STROKE, 05/29/2022, 10:33. FINDINGS: Image quality: Excellent. CSF spaces: Ventricles appear symmetric in size and shape. Basal cisterns are patent. No extra-axial fluid collections. Brain: No intracranial bleeds or mass effects. There is cerebral volume loss for age. There are periventricular and deep white matter chronic small vessel ischemic changes. Brainstem appears normal. Diffusion-weighted images show no acute ischemic insults. No chronic ischemic insults. Normal intravascular flow voids are present. Skull and face: Calvarial bone marrow is normal in signal. Orbits are normal. Sinuses: Sinuses demonstrate prominent mucous retention cyst on left. IMPRESSION: 1. No acute intracranial process. No acute ischemia. 2. Mild to moderate atrophy and chronic microvascular ischemic changes. Dictated by: Lakshmi Mai M.D. on 05/29/2022 at 14:18 Approved by: Lakshmi Mai M.D. on 05/29/2022 at 14:19
[2022-05-29] MEDS: LORazepam 2 MG/ML INJ 0.5 MG IV (12:48)
[2022-05-29 12:52] LABS: COVID19 -Nasal RAPID Negative (Negative)
[2022-05-29 13:24] LABS: Cholesterol 166 mg/dL (140-199); HDL Cholesterol 35 mg/dL (40-60); LDL Cholesterol Calculated 105 mg/dL (<100); Triglycerides 129 mg/dL (35-150)
[2022-05-29 13:25] LABS: Magnesium 1.8 mg/dL (1.6-2.3)
[2022-05-29 13:28] LABS: Hemoglobin A1C% w Est Avg Glu 5.6 % (4.0-6.0)
--- NOTE | 2022-05-29 13:56 | P.HP_ITS ---
History of Present Illness History of Present Illness Date Patient Seen: 05/29/22 Chief complaint: pt thinks he is having a stroke, sta 4 melan Narrative: Deion melchor is an 81-year-old male with past medical history atrial fibrillation on Pradaxa, hypertension, hyperlipidemia, metastatic melanoma on immunotherapy followed by Dr. Acevedo, and hypothyroidism who presents for possible TIA with word-finding difficulty. Patient states he had acute onset difficulty remembering words and reading words on a page and would ?mixed up the words and replace him with the wrong ones?. This happened around 9:00 a.m. and lasted until he got to the ED then it resolved. Patient currently feels well and denies chest pain, headache, nausea vomiting, diarrhea, abdominal pain or weakness in arms and legs. Patient History Medical History Chicken pox (~194) Hyperlipidemia Hypertension Measles (~1944) Metastatic melanoma Mumps (~1944) Shingles (~1993) Skin cancer (~2004) Surgical History Anesthesia History of appendectomy Status post Mohs surgery Family & Social History Family History Father Kidney failure Family/Other Substance abuse Safety & Behavioral: Feels Safe in Current Yes Environment Been Physically Hurt or No Threatened By a Person Tobacco & Substance use: Smoking Status Never smoker alcohol intake frequency 0-2 drinks per day Substance Use Type does not use Meds Home Medications and Allergies Home Medications Medication Instructions Recorded Confirmed Type atenolol 50 mg tablet 50 mg PO DAILY 10/23/21 04/29/22 History dabigatran etexilate 150 mg 150 mg PO BID 10/23/21 04/29/22 History capsule (Pradaxa) docusate sodium 100 mg capsule 100 mg PO BID 04/01/22 04/29/22 History (Colace) atorvastatin 40 mg tablet See Rx Instructions .Route 04/16/22 04/29/22 Rx .COMPLEX #90 tabs acetaminophen 325 mg capsule 650 mg PO Q4H PRN Pain (Scale 04/29/22 04/29/22 History (Tylenol) Score 4-6) levothyroxine 75 mcg tablet 75 mcg PO DAILY #30 tabs 04/29/22 Rx (Synthroid) lisinopril 10 mg tablet 10 mg PO DAILY 04/29/22 04/29/22 History lorazepam 1 mg tablet (Ativan) 1 mg PO PRN PRN Nausea #7 tabs 04/29/22 Rx pantoprazole 40 mg tablet,delayed 40 mg PO BID 04/29/22 04/29/22 History release scopolamine base 1 mg over 3 days 1 patch transdermal Q3D PRN motion 05/04/22 Rx transdermal patch sickness #4 ea amoxicillin 875 mg-potassium 1 tab PO BID #14 tabs 05/05/22 Rx clavulanate 125 mg tablet Allergies Allergy/AdvReac Type Severity Reaction Status Date / Time No Known Drug Allergies Allergy Verified 02/20/22 13:16 Review of Systems Review of Systems Narrative: All other systems reviewed with the patient and are negative unless otherwise stated. Exam Vital Signs (past 8 hours): - 05/29/22 10:26 05/29/22 10:25 05/29/22 10:26 Temperature 97.1 F L Pulse Rate 122 H 106 H 98 H Respiratory Rate 22 29 H 28 H Blood Pressure 154/77 H Pulse Oximetry 97 97 97 Oxygen Delivery Method Room Air 05/29/22 10:26 05/29/22 10:43 05/29/22 10:48 Temperature Pulse Rate 86 84 Respiratory Rate 17 22 Blood Pressure 149/81 H Pulse Oximetry 97 96 Oxygen Delivery Method 05/29/22 10:48 05/29/22 11:00 05/29/22 11:00 Temperature Pulse Rate 85 Respiratory Rate 18 Blood Pressure 142/62 H 135/62 Pulse Oximetry 95 Oxygen Delivery Method 05/29/22 11:15 05/29/22 11:15 05/29/22 11:30 Temperature Pulse Rate 80 Respiratory Rate 15 Blood Pressure 135/62 126/62 Pulse Oximetry 95 Oxygen Delivery Method 05/29/22 11:30 05/29/22 11:45 05/29/22 11:45 Temperature Pulse Rate 78 79 Respiratory Rate 13 17 Blood Pressure 123/60 Pulse Oximetry 94 95 Oxygen Delivery Method 05/29/22 12:00 05/29/22 12:00 Temperature Pulse Rate 73 Respiratory Rate 15 Blood Pressure 143/68 H Pulse Oximetry 94 Oxygen Delivery Method Oxygen Delivery Method Room Air Narrative Exam Narrative: GEN: Elderly male in NAD HEENT: moist mucous membranes, PERRL NECK: trachea midline, no JVD CV: regular rate and rhythm, no murmurs PULM: clear bilaterally ABD: soft, nontender, nondistended, no organomegaly EXT: warm and well perfused with no edema NEURO: awake, alert, oriented, no focal deficits Objective Labs Result Diagrams: 05/29/22 10:28 05/29/22 10:28 Labs: Laboratory Results - last 24 hr 05/29/22 05/29/22 05/29/22 10:28 10:28 10:28 WBC 5.0 RBC 4.58 Hgb 14.1 Hct 41.6 MCV 90.9 MCH 30.8 MCHC 33.9 RDW 13.9 Plt Count 207 Neut % (Auto) 59.2 Lymph % (Auto) 21.5 L [place] % (Auto) 10.9 Eos % (Auto) 7.3 H Baso % (Auto) 1.1 Neut # (Auto) 3000 Lymph # (Auto) 1100 [place] # (Auto) 500 Eos # (Auto) 400 Baso # (Auto) 100 PT 13.6 H INR 1.2 APTT 46 H Sodium 134 L Potassium 3.6 Chloride 97 L Carbon Dioxide 26 BUN 15 Creatinine 0.82 Estimated GFR > 60 BUN/Creatinine Ratio 18.3 Glucose 129 H Hemoglobin A1c Calcium 9.4 Magnesium Total Bilirubin 1.2 AST 29 ALT 21 Alkaline Phosphatase 58 Total Creatine Kinase 43 L CK-MB (CK-2) TNP CK-MB (CK-2) Rel Index TNP Troponin I < 0.012 Total Protein 7.1 Albumin 4.3 Globulin 2.8 Albumin/Globulin Ratio 1.5 Triglycerides Cholesterol LDL Cholesterol, Calc HDL Cholesterol Lipase 66 SARS-CoV-2 (PCR) 05/29/22 05/29/22 05/29/22 10:28 10:28 10:38 WBC RBC Hgb Hct MCV MCH MCHC RDW Plt Count Neut % (Auto) Lymph % (Auto) [place] % (Auto) Eos % (Auto) Baso % (Auto) Neut # (Auto) Lymph # (Auto) [place] # (Auto) Eos # (Auto) Baso # (Auto) PT INR APTT Sodium Potassium Chloride Carbon Dioxide BUN Creatinine Estimated GFR BUN/Creatinine Ratio Glucose Hemoglobin A1c 5.6 Calcium Magnesium 1.8 Total Bilirubin AST ALT Alkaline Phosphatase Total Creatine Kinase CK-MB (CK-2) CK-MB (CK-2) Rel Index Troponin I Total Protein Albumin Globulin Albumin/Globulin Ratio Triglycerides 129 Cholesterol 166 LDL Cholesterol, Calc 105 H HDL Cholesterol 35 L Lipase SARS-CoV-2 (PCR) 05/29/22 11:48 WBC RBC Hgb Hct MCV MCH MCHC RDW Plt Count Neut % (Auto) Lymph % (Auto) [place] % (Auto) Eos % (Auto) Baso % (Auto) Neut # (Auto) Lymph # (Auto) [place] # (Auto) Eos # (Auto) Baso # (Auto) PT INR APTT Sodium Potassium Chloride Carbon Dioxide BUN Creatinine Estimated GFR BUN/Creatinine Ratio Glucose Hemoglobin A1c Calcium Magnesium Total Bilirubin AST ALT Alkaline Phosphatase Total Creatine Kinase CK-MB (CK-2) CK-MB (CK-2) Rel Index Troponin I Total Protein Albumin Globulin Albumin/Globulin Ratio Triglycerides Cholesterol LDL Cholesterol, Calc HDL Cholesterol Lipase SARS-CoV-2 (PCR) Negative Assessment & Plan Assessment & Plan narrative: # concern for TIA with word finding difficulty -CT and CTA head normal -MR brain -echo pending -already on pradaxa, will continue -hold home antihypertensives for 24 hours -A1c 5.4% -lipid panel with LDL 105 and HDL 35, will likely raise home lipitor to 80mg # chronic A-fib -continue home pradaxa -currently rate controlled # HTN, chronic -holding home lisinopril and atenolol and will resume on discharge # HLD, chronic -continue home lipitor but raise to 80mg nightly due to LDL not at goal # hypothyroidism, chronic -TSH 15, free t4 pending -will raise synthroid at 100mcg on discharge # GERD, chronic -continue home PPI Code status is Full code. COVID negative. DVT prophylaxis with Pradaxa. Proxy is Rita. I have reviewed home meds and used all available resources to reconcile the home meds. This patient will be admitted as observation and will require less than 2 midnights of hospital time to treat TIA. Time Spent With Patient Critical Care time: I spent a total of [] minutes of critical care time on this patient's care today; this time is exclusive of procedural time.
[2022-05-29 14:23] LABS: Free T4, Direct Thyroxine 1.12 ng/dL (0.78-2.19)
--- NOTE | 2022-05-29 15:04 | PM.DS.1 ---
History of Present Illness History of Present Illness Date Patient Seen: 05/29/22 Chief complaint: pt thinks he is having a stroke, sta 4 melan Narrative: Deion melchor is an 81-year-old male with past medical history atrial fibrillation on Pradaxa, hypertension, hyperlipidemia, metastatic melanoma on immunotherapy followed by Dr. Acevedo, and hypothyroidism who presents for possible TIA with word-finding difficulty. Patient states he had acute onset difficulty remembering words and reading words on a page and would ?mixed up the words and replace him with the wrong ones?. This happened around 9:00 a.m. and lasted until he got to the ED then it resolved. Patient currently feels well and denies chest pain, headache, nausea vomiting, diarrhea, abdominal pain or weakness in arms and legs. Discharge Providers Provider Date of admission: 05/29/22 12:32 Discharge Date: 05/29/22 Primary care physician: Scottie Rosenberg MD Consults: 05/29/22 12:29 Consult to Occupational Therapy Evaluate & Treat Comment: Physician Instructions: Evaluate and treat Consult to Physical Therapy Evaluate & Treat Comment: Physician Instructions: Evaluate and Treat Discharge provider: Babar Carrera, Summary Hospital Course Discharge Diagnosis: # concern for TIA with word finding difficulty -CT and CTA head normal -MR brain without acute stroke, chronic microvascular changes consistent with age -patient elected to defer echo to outpatient with PCP if warranted, given he has been on pradaxa so a clot would be unlikely and if he has a PFO he is beyond the age for repair -already on pradaxa, will continue -A1c 5.4% -lipid panel with LDL 105 and HDL 35, onc holding statin due to potential myalgias. Would consider ezetimibe as alternative. # chronic A-fib -continue home pradaxa -currently rate controlled # HTN, chronic -pt will resume home BP meds on 05/30 # HLD, chronic -pt holding lipitor due to LE weakness per oncologist # hypothyroidism, chronic -TSH 15, free t4 1.13 -patient had synthroid already raised to 75mcg by oncologist due to TSH 77 about 1 month ago -f/u with oncologist for TSH recheck in 2 weeks # GERD, chronic -continue home PPI # metastatic melanoma -followed by Dr. Acevedo -currently on Opdivo therapy Hospital Course: Admitted for possible TIA with word finding difficulty. No other focal symptoms. Had resolved by the time he got to the ED. Full workup was negative and echo was deferred given it wouldn't change manager. He was continued on pradaxa. TSH noted to be 15, much improved from 77 which was last checked a month ago by oncologist and synthroid raised to 75mcg. He noted his fatigue and LE weakness improving some as well. Lipitor had been held by onc due to possible myalgias, rec changing to ezetimibe for stroke prevention if not the statin. A1c 5.4%. Discharged to f/u with his PCP for possible echo as outpatient and his oncologist which he has an upcoming appt with in 2 weeks. Time Spent with Patient Time spent: Greater than 30 minutes Exam Vital Signs (past 8 hours): - 05/29/22 10:26 05/29/22 10:25 05/29/22 10:26 Temperature 97.1 F L Pulse Rate 122 H 106 H 98 H Respiratory Rate 22 29 H 28 H Blood Pressure 154/77 H Pulse Oximetry 97 97 97 Oxygen Delivery Method Room Air 05/29/22 10:26 05/29/22 10:43 05/29/22 10:48 Temperature Pulse Rate 86 84 Respiratory Rate 17 22 Blood Pressure 149/81 H Pulse Oximetry 97 96 Oxygen Delivery Method 05/29/22 10:48 05/29/22 11:00 05/29/22 11:00 Temperature Pulse Rate 85 Respiratory Rate 18 Blood Pressure 142/62 H 135/62 Pulse Oximetry 95 Oxygen Delivery Method 05/29/22 11:15 05/29/22 11:15 05/29/22 11:30 Temperature Pulse Rate 80 Respiratory Rate 15 Blood Pressure 135/62 126/62 Pulse Oximetry 95 Oxygen Delivery Method 05/29/22 11:30 05/29/22 11:45 05/29/22 11:45 Temperature Pulse Rate 78 79 Respiratory Rate 13 17 Blood Pressure 123/60 Pulse Oximetry 94 95 Oxygen Delivery Method 05/29/22 12:00 05/29/22 12:00 Temperature Pulse Rate 73 Respiratory Rate 15 Blood Pressure 143/68 H Pulse Oximetry 94 Oxygen Delivery Method Oxygen Delivery Method Room Air Narrative Exam Narrative: GEN: Elderly male in NAD HEENT: moist mucous membranes, PERRL NECK: trachea midline, no JVD CV: regular rate and rhythm, no murmurs PULM: clear bilaterally ABD: soft, nontender, nondistended, no organomegaly EXT: warm and well perfused with no edema NEURO: awake, alert, oriented, no focal deficits Objective Labs Result Diagrams: 05/29/22 10:28 05/29/22 10:28 Labs: Laboratory Results - last 24 hr 05/29/22 05/29/22 05/29/22 10:28 10:28 10:28 WBC 5.0 RBC 4.58 Hgb 14.1 Hct 41.6 MCV 90.9 MCH 30.8 MCHC 33.9 RDW 13.9 Plt Count 207 Neut % (Auto) 59.2 Lymph % (Auto) 21.5 L [place] % (Auto) 10.9 Eos % (Auto) 7.3 H Baso % (Auto) 1.1 Neut # (Auto) 3000 Lymph # (Auto) 1100 [place] # (Auto) 500 Eos # (Auto) 400 Baso # (Auto) 100 PT 13.6 H INR 1.2 APTT 46 H Sodium 134 L Potassium 3.6 Chloride 97 L Carbon Dioxide 26 BUN 15 Creatinine 0.82 Estimated GFR > 60 BUN/Creatinine Ratio 18.3 Glucose 129 H Hemoglobin A1c Calcium 9.4 Magnesium Total Bilirubin 1.2 AST 29 ALT 21 Alkaline Phosphatase 58 Total Creatine Kinase 43 L CK-MB (CK-2) TNP CK-MB (CK-2) Rel Index TNP Troponin I < 0.012 Total Protein 7.1 Albumin 4.3 Globulin 2.8 Albumin/Globulin Ratio 1.5 Triglycerides Cholesterol LDL Cholesterol, Calc HDL Cholesterol Lipase 66 TSH Free T4 SARS-CoV-2 (PCR) 05/29/22 05/29/22 05/29/22 10:28 10:28 10:38 WBC RBC Hgb Hct MCV MCH MCHC RDW Plt Count Neut % (Auto) Lymph % (Auto) [place] % (Auto) Eos % (Auto) Baso % (Auto) Neut # (Auto) Lymph # (Auto) [place] # (Auto) Eos # (Auto) Baso # (Auto) PT INR APTT Sodium Potassium Chloride Carbon Dioxide BUN Creatinine Estimated GFR BUN/Creatinine Ratio Glucose Hemoglobin A1c 5.6 Calcium Magnesium 1.8 Total Bilirubin AST ALT Alkaline Phosphatase Total Creatine Kinase CK-MB (CK-2) CK-MB (CK-2) Rel Index Troponin I Total Protein Albumin Globulin Albumin/Globulin Ratio Triglycerides 129 Cholesterol 166 LDL Cholesterol, Calc 105 H HDL Cholesterol 35 L Lipase TSH Free T4 SARS-CoV-2 (PCR) 05/29/22 05/29/22 10:38 11:48 WBC RBC Hgb Hct MCV MCH MCHC RDW Plt Count Neut % (Auto) Lymph % (Auto) [place] % (Auto) Eos % (Auto) Baso % (Auto) Neut # (Auto) Lymph # (Auto) [place] # (Auto) Eos # (Auto) Baso # (Auto) PT INR APTT Sodium Potassium Chloride Carbon Dioxide BUN Creatinine Estimated GFR BUN/Creatinine Ratio Glucose Hemoglobin A1c Calcium Magnesium Total Bilirubin AST ALT Alkaline Phosphatase Total Creatine Kinase CK-MB (CK-2) CK-MB (CK-2) Rel Index Troponin I Total Protein Albumin Globulin Albumin/Globulin Ratio Triglycerides Cholesterol LDL Cholesterol, Calc HDL Cholesterol Lipase TSH 15.00 H Free T4 1.12 SARS-CoV-2 (PCR) Negative [facility] Medical History Chicken pox (~1944) Hyperlipidemia Hypertension Measles (~1944) Metastatic melanoma Mumps (~1944) Shingles (~1993) Skin cancer (~2004) Surgical History Anesthesia History of appendectomy Status post Mohs surgery Family History Father Kidney failure Family/Other Substance abuse Social History Smoking Status: Never smoker Discharge Plan Discharge orders & Medications Discharge Orders: Discharge (Order); Ordered 05/29/22 Ordered By: Babar Carrera Prescriptions: Continued atorvastatin 40 mg tablet See Rx Instructions .ROUTE .COMPLEX Qty: 90 3RF Dose Instruction: Take 1 tablet (40 mg) by mouth daily Rx Instructions: Take 1 tablet (40 mg) by mouth daily scopolamine base 1 mg over 3 days patch 3 day 1 patch transdermal Q3D PRN (Reason: motion sickness) Qty: 4 1RF amoxicillin-pot clavulanate 875-125 mg tablet 1 tab PO BID Qty: 14 0RF Pradaxa 150 mg capsule 150 mg PO BID atenolol 50 mg tablet 50 mg PO DAILY docusate sodium [Colace] 100 mg Capsule 100 mg PO BID lisinopril 10 mg Tablet 10 mg PO DAILY acetaminophen [Tylenol] 325 mg Capsule 650 mg PO Q4H PRN (Reason: Pain (Scale Score 4-6)) pantoprazole 40 mg tablet,delayed release (DR/EC) 40 mg PO BID levothyroxine [Synthroid] 75 mcg Tablet 75 mcg PO DAILY Qty: 30 3RF lorazepam [Ativan] 1 mg tablet 1 mg PO PRN PRN (Reason: Nausea) Qty: 7 0RF Rx Instructions: take 15-20 minutes prior to MRI Follow up/Referrals: Scottie Rosenberg MD [Primary Care Provider] - Visit Report/Discharge Packet Stand Alone Forms: Patient Portal/API, Stroke Signs & Symptoms Discharge Data Primary Care Provider: Scottie Rosenberg Attending Provider: Jack Hollins
--- NOTE | 2022-05-29 17:28 | PT-IP ANOTE ---
PT eval order received. EMR reviewed but pt has d/c order. talked with hospitalist and stated that no PT needs and pt will be going home. agreed to d/c PT eval order.
== END 2022-05-29 15:39 | disposition home or self-care (01) ==
LOC: ED 12:29 → AC 12:33
PROVIDERS: Student in an Organized Health Care Education/Training Program; Admitting Provider Internal Medicine; Emergency Provider Emergency Medicine; PCP Family Medicine; Referring Provider Emergency Medicine; Visit Provider Internal Medicine
DX: R47.01 Aphasia (principal); R29.818 Other symptoms and signs involving the nervous system; R29.701 NIHSS score 1; I10 Essential (primary) hypertension; E78.5 Hyperlipidemia, unspecified; C79.9 Secondary malignant neoplasm of unspecified site; I48.20 Chronic atrial fibrillation, unspecified; E03.9 Hypothyroidism, unspecified; K21.9 Gastro-esophageal reflux disease without esophagitis; Z20.822 Contact with and (suspected) exposure to COVID-19
CPT/HCPCS: 36415; 70450; 70496; 70498; 70551; 71045; 80053; 80061; 82550; 83036; 83690; 83735; 84439; 84443; 84484; 85025; 85610; 85730; 87635; 93005; 93010; 96361; 96374; 99285; C9803; G0378; J2060

== ENCOUNTER 2022-06-19 15:44 | Emergency (ER) | payer MEDICARE, OTHER, SELFPAY ==
[2022-06-19] VITALS (8 sets, daily range): BP systolic 154–174; BP diastolic 76–115; PULSE 66–76; RESP 18; TEMP 36.1; O2SAT 94–99; BMI 26.5
--- NOTE | 2022-06-19 15:51 | DI.CT.S_ITS ---
PROCEDURE: CT ANGIO HEAD AND NECK INDICATIONS: code stroke TECHNIQUE: Noncontrast images were performed earlier in the day and not repeated. After the administration of intravenous contrast, 1 mm thick sections acquired from the aortic arch through the [place] of [place]. Post-contrast 4.5 mm thick sections then re-acquired from the foramen magnum to the vertex. 3-dimensional xywuolz-wjijqeepu-inoyyannts (MIP) and/or volume rendering reformats were acquired of the central intracranial vasculature and neck separately. For radiation dose reduction, the following was used: automated exposure control, adjustment of mA and/or kV according to patient size. COMPARISON: [facility], MR, MR HEAD/BRAIN WO/W CON, 04/30/2022, 18:58. [facility], CT, CT STROKE, 05/29/2022, 10:33. [facility], MR, MR HEAD/BRAIN WO CON, 05/29/2022, 12:55. [facility], CT, CT ANGIO HEAD AND NECK, 05/29/2022, 10:33. [facility], CT, CT STROKE, 06/19/2022, 15:58. FINDINGS: Image quality: Excellent. BRAIN: CSF spaces: Ventricles are normal in size and shape. Basal cisterns are patent. No extra-axial fluid collections. Brain: No midline shift. No intracranial bleeds or masses. Rolon-white matter interface appears intact. Skull and face: Calvarium and facial bones appear intact, without suspicious lesions. Orbits appear normal. Note is made of age-appropriate brain parenchymal volume loss and chronic small vessel ischemic changes. Sinuses: There is a mucous retention cyst seen within the left maxillary sinus. Sinuses and mastoids are otherwise relatively clear. HEAD CT ANGIOGRAPHY: Anterior circulation: Intracranial internal carotid arteries are normal in size and flow. The flow within the paired anterior cerebral arteries is normal and symmetric. The flow within the middle cerebral arteries is normal and symmetric. The anterior communicating artery is not well seen. No aneurysms are seen. Posterior circulation: Visualized portions of the vertebral arteries demonstrate normal caliber, and join to form a normal appearing basilar artery. Flow within the posterior cerebral arteries is normal and symmetric. No aneurysms are seen. NECK CT ANGIOGRAPHY: Carotid system: The great vessels demonstrate a conventional anatomy as they arise from the aortic arch. Atherosclerotic calcification is noted. The origins of the common carotid arteries appear patent. The common carotid arteries demonstrate normal caliber and courses. The bifurcation regions are both widely patent. The internal carotid arteries demonstrate normal calibers and courses. Posterior circulation: The origins of the vertebral arteries both appear widely patent. The more superior extracranial portions of both vertebral arteries also demonstrate normal courses and calibers. They join to form a normal appearing basilar artery. Soft tissues: Visualized neck soft tissues demonstrate no suspicious abnormalities. Bones: No suspicious bony lesions. Visualized cervical spine appears normally aligned. Moderate cervical spine degenerative changes are seen. IMPRESSION: No significant intracranial arterial abnormality is seen. Within the arteries of the neck, no hemodynamically significant stenosis can be seen. Additional findings: Left maxillary sinus mucous retention cyst Moderate cervical spine degenerative change Any quantitative measurements of stenosis were performed using NASCET criteria. Dictated by: John Escalera M.D. on 06/19/2022 at 15:37 Approved by: John Escalera M.D. on 06/19/2022 at 15:45
--- NOTE | 2022-06-19 15:51 | DI.CT.S_ITS ---
PROCEDURE: CT STROKE INDICATIONS: code stroke TECHNIQUE: Noncontrast 4.5 mm thick angled axial sections acquired from the foramen magnum to the vertex, with coronal reformats. For radiation dose reduction, the following was used: automated exposure control, adjustment of mA and/or kV according to patient size. COMPARISON: [facility], CT, CT STROKE, 05/29/2022, 10:33. FINDINGS: Image quality: Excellent. CSF spaces: Basal cisterns are patent. No extra-axial fluid collections. The ventricles are symmetric in size and shape. Brain: No intracranial bleeds or masses. There is cerebral volume loss for age, with resultant ventricular and sulcal prominence. There are periventricular and deep white matter chronic small vessel ischemic changes. There is intracranial internal carotid artery atherosclerosis. Skull and face: Calvarium and visualized facial bones appear intact, without suspicious lesions. Sinuses: Visualized sinuses demonstrate partially visualized left maxillary mucous retention cyst versus polyp. IMPRESSION: 1. No acute intracranial process. 2. Moderate atrophy and chronic microvascular ischemic changes. The above findings were discussed with Dr. Tio Lewis on 06/19/2022 at 4:05 p.m. This study fulfills neurological imaging criteria for inclusion or exclusion of acute stroke therapies based on available published neurological guidelines. Dictated by: Lakshmi Mai M.D. on 06/19/2022 at 16:03 Approved by: Lakshmi Mai M.D. on 06/19/2022 at 16:04
--- NOTE | 2022-06-19 16:25 | ED_ITS ---
HPI - General Adult General Chief complaint: Altered Mental Status Stated complaint: Poss mini stroke Time Seen by Provider: 06/19/22 15:51 Source: patient and family () Mode of arrival: Ambulatory Limitations: no limitations History of Present Illness HPI narrative: Patient is an 81-year-old male. He is on Pradaxa for atrial fibrillation which he states is persistent. Prior to arrival he had approximately 15-20 minutes of a period of time where he was having word-finding difficulty. The words that he was saying were not slurred. He realize that he was having problems saying things he wanted to. He was also having some blurry vision. The symptoms have completely resolved. He would very similar symptoms a couple weeks ago and was diagnosed with a TIA. His did witness this event. Currently is asymptomatic. He would no extremity weakness. He does have a history of melanoma. Is under the care of Oncology and given immunoglobulin infusions. He also had a change in his Synthroid approximately 1 week ago. Code stroke was called in triage. Related Data Home Medications Medication Instructions Recorded Confirmed atenolol 50 mg tablet 50 mg PO DAILY 10/23/21 06/04/22 dabigatran etexilate 150 mg 150 mg PO BID 10/23/21 06/04/22 capsule (Pradaxa) acetaminophen 325 mg capsule 650 mg PO Q4H PRN Pain (Scale 04/29/22 06/04/22 (Tylenol) Score 4-6) lisinopril 10 mg tablet 10 mg PO DAILY 04/29/22 04/29/22 pantoprazole 40 mg tablet,delayed 40 mg PO BID 04/29/22 06/04/22 release Previous Rx's Medication Instructions Recorded levothyroxine 75 mcg tablet 75 mcg PO DAILY #30 tabs 04/29/22 (Synthroid) levothyroxine 88 mcg tablet 88 mcg PO DAILY #30 tabs 06/11/22 (Synthroid) Allergies Allergy/AdvReac Type Severity Reaction Status Date / Time No Known Drug Allergies Allergy Verified 02/20/22 13:16 Review of Systems Review of Systems ROS Unobtainable: All systems reviewed & are unremarkable except as noted in HPI and below Patient History Medical History Chicken pox (~194) Hyperlipidemia Hypertension Measles (~194) Metastatic melanoma Mumps (~194) Shingles (~1993) Skin cancer (~2005) Surgical History Anesthesia History of appendectomy Status post Mohs surgery Family History Father Kidney failure Family/Other Substance abuse Social History Smoking Status: Never smoker Smoking Status: Never smoker alcohol intake frequency: 0-2 drinks per day Substance Use Type: does not use Exam Initial Vital Signs Initial Vital Signs: Vital Signs Temperature 96.9 F L 06/19/22 15:50 Pulse Rate 75 06/19/22 15:50 Respiratory Rate 18 06/19/22 15:50 Blood Pressure 174/81 H 06/19/22 15:50 Pulse Oximetry 95 06/19/22 15:50 Oxygen Delivery Method 06/19/22 15:50 Const General: cooperative, comfortable and No ill appearing HENMT Head: normal to inspection and normocephalic Face and sinus: normal facial exam Resp Effort & Inspection: normal respiratory effort Auscultation: clear to auscultation bilaterally Cardio Rate: regular rate Rhythm: regular rhythm GI Inspection: normal to inspection Palpation: soft and No tender Skin General: no rashes or lesions noted Neuro General: patient alert, patient awake, patient oriented x3 and moves all extremities Cognition: normal cognition Speech: speech normal Motor: muscle tone normal throughout Sensory Exam: no sensory deficits noted Coordination: xkjodt-ne-gver test normal and odsy-eb-wrbo test normal Extrem General: normal to inspection and capillary refill normal Psych Appearance: grossly normal and well kempt Scores GCS Edilberto coma scale eye opening: Spontaneous [place] coma scale verbal response: Orientated Edilberto coma scale motor response: Obey commands Edilberto coma scale total score: 15 NIH Stroke Scale Level of Conciousness: Alert, keenly responsive Ask month/age: Answers both questions correctly. Open/close eyes, close hand: Performs both tasks correctly Best gaze horizontal: Normal Visual cain: No visual loss Facial palsy: Normal symetrical movement Left arm drift: No drift for full 10 sec Right arm drift: No drift for full 10 sec Left leg drift: No drift for full 5 sec Right leg drift: No drift for full 5 sec Limb ataxia: Absent Sensory on face/arms/legs: Normal, no sensory loss Best language: No aphasia, normal Dysarthria: Normal Extinction or inattention: No abnormality Total NIH Stroke scale score: 0 Course Orders Ordered: ED Orders 06/19/22 15:[address] angio head and neck Stat 06/19/22 15:53 COVID19 -Nasal RAPID/Pre-Proc Stat 06/19/22 16:39 EKG-12 Lead Stat 06/19/22 17:49 Complete Blood Count AUTO DIFF Stat Comprehensive Metabolic Panel Stat Lipase Stat Partial Thromboplastin Time Stat Prothrombin Time INR Stat Troponin & CK Cardiac Panel Stat Vital Signs Vital signs: Vital Signs - 8 hr 06/19/22 15:50 06/19/22 16:09 06/19/22 16:09 Temperature 96.9 F L Pulse Rate 75 74 Respiratory Rate 18 Blood Pressure 174/81 H 165/115 H Pulse Oximetry 95 96 Oxygen Delivery Method Room Air 06/19/22 16:10 06/19/22 16:10 06/19/22 16:30 Temperature Pulse Rate 72 76 Respiratory Rate Blood Pressure 157/76 H Pulse Oximetry 97 98 Oxygen Delivery Method 06/19/22 17:00 06/19/22 17:30 06/19/22 17:43 Temperature Pulse Rate 68 66 Respiratory Rate Blood Pressure 162/85 H Pulse Oximetry 94 95 Oxygen Delivery Method 06/19/22 17:43 Temperature Pulse Rate 71 Respiratory Rate Blood Pressure Pulse Oximetry 97 Oxygen Delivery Method Medical Decision Making Lab Data Lab results reviewed: Yes I reviewed the patient's lab results. 06/19/22 17:49 06/19/22 17:49 Labs: Lab Results 06/19/22 06/19/22 06/19/22 Range/Units 17:49 17:49 17:49 WBC 4.4 L (4.5-11.0) X10^3/uL RBC 4.33 L (4.5-5.9) X10^6/uL Hgb 13.2 L (13.5-17.5) g/dL Hct 38.7 L (41-53) % MCV 89.2 (80-100) fL MCH 30.6 (26-34) PG MCHC 34.2 (30-36) % RDW 12.7 (11.6-14.8) % Plt Count 180 (150-400) X10^3/uL Neut % (Auto) 60.7 (50-75) % Lymph % (Auto) 17.7 L (25-40) % Atkinson % (Auto) 13.1 (3-14) % Eos % (Auto) 7.2 H (2-4) % Baso % (Auto) 1.3 (0-2) % Neut # (Auto) 2700 (5734-0444) /uL Lymph # (Auto) 800 L (0460-8610) /uL Atkinson # (Auto) 600 (0-900) /uL Eos # (Auto) 300 (0-450) /uL Baso # (Auto) 100 (0-100) /uL PT 14.4 H (10.1-12.7) SECONDS INR 1.3 (0.9-1.3) APTT 59 H (26-36) SECONDS Sodium 127 L (137-145) mmol/L Potassium 4.2 (3.4-5.1) mmol/L Chloride 91 L (98-107) mmol/L Carbon Dioxide 26 (22-32) mmol/L BUN 13 (9-20) mg/dL Creatinine 0.69 (0.66-1.25) mg/dL Estimated GFR > 60 (>60) mL/min BUN/Creatinine Ratio 18.8 (6-22) Glucose 100 (80-110) mg/dL Calcium 8.8 (8.4-10.2) mg/dL Total Bilirubin 1.0 (0.2-1.3) mg/dL AST 38 (17-59) IU/L ALT 17 (<50) IU/L Alkaline Phosphatase 54 (38-126) U/L Total Creatine Kinase (55-170) U/L CK-MB (CK-2) CK-MB (CK-2) Rel Index Troponin I (0.01-0.034) ng/mL Total Protein 6.4 (6.3-8.2) g/dL Albumin 3.8 (3.5-5.0) g/dL Globulin 2.6 (1.7-4.1) g/dL Albumin/Globulin Ratio 1.5 (1.0-2.8) Lipase (23-300) U/L TSH Ethyl Alcohol 06/19/22 06/19/22 Range/Units 17:49 17:49 WBC (4.5-11.0) X10^3/uL RBC (4.5-5.9) X10^6/uL Hgb (13.5-17.5) g/dL Hct (41-53) % MCV (80-100) fL MCH (26-34) PG MCHC (30-36) % RDW (11.6-14.8) % Plt Count (150-400) X10^3/uL Neut % (Auto) (50-75) % Lymph % (Auto) (25-40) % Atkinson % (Auto) (3-14) % Eos % (Auto) (2-4) % Baso % (Auto) (0-2) % Neut # (Auto) (5289-4740) /uL Lymph # (Auto) (2485-0161) /uL Atkinson # (Auto) (0-900) /uL Eos # (Auto) (0-450) /uL Baso # (Auto) (0-100) /uL PT (10.1-12.7) SECONDS INR (0.9-1.3) APTT (26-36) SECONDS Sodium (137-145) mmol/L Potassium (3.4-5.1) mmol/L Chloride (98-107) mmol/L Carbon Dioxide (22-32) mmol/L BUN (9-20) mg/dL Creatinine (0.66-1.25) mg/dL Estimated GFR (>60) mL/min BUN/Creatinine Ratio (6-22) Glucose (80-110) mg/dL Calcium (8.4-10.2) mg/dL Total Bilirubin (0.2-1.3) mg/dL AST (17-59) IU/L ALT (<50) IU/L Alkaline Phosphatase (38-126) U/L Total Creatine Kinase 62 (55-170) U/L CK-MB (CK-2) TNP CK-MB (CK-2) Rel Index TNP Troponin I < 0.012 (0.01-0.034) ng/mL Total Protein (6.3-8.2) g/dL Albumin (3.5-5.0) g/dL Globulin (1.7-4.1) g/dL Albumin/Globulin Ratio (1.0-2.8) Lipase 48 (23-300) U/L TSH Cancelled Ethyl Alcohol Cancelled Point of Care Testing Glucose POC 139 Point of care testing: Point of Care Testing Glucose POC [address] scan - head: Radiologist's Impression: [address] [address] [address] Scan Report Signed Patient: Dieon Mello MR#: [id number] : 1940 Acct:[id number] Age/Sex: 81 / M Date of Service: 06/19/22 Loc: ED Accession Number: [id number] ?? Procedure: CT Stroke Ordering Provider: Tio Lewis D.O. PROCEDURE:? CT STROKE ? INDICATIONS:? code stroke ? TECHNIQUE:? Noncontrast 4.5 mm thick angled axial sections acquired from the foramen magnum to the vertex, with coronal reformats.? For radiation dose reduction, the following was used:? automated exposure control, adjustment of mA and/or kV according to patient size.? ? COMPARISON:? [facility], CT, CT STROKE, 05/29/2022, 10:33. ? FINDINGS:? Image quality:? Excellent.? ? CSF spaces:? Basal cisterns are patent.? No extra-axial fluid collections.? The ventricles are symmetric in size and shape.? ? Brain:? No intracranial bleeds or masses.? There is cerebral volume loss for age, with resultant ventricular and sulcal prominence.? There are periventricular and deep white matter chronic small vessel ischemic changes.? There is intracranial internal carotid artery atherosclerosis.? ? Skull and face:? Calvarium and visualized facial bones appear intact, without suspicious lesions.? ? Sinuses:? Visualized sinuses demonstrate partially visualized left maxillary mucous retention cyst versus polyp. ? IMPRESSION:? ? 1. No acute intracranial process. ? 2. Moderate atrophy and chronic microvascular ischemic changes. ? The above findings were discussed with Dr. Tio Lewis on 06/19/2022 at 4:05 p.m. ? ? This study fulfills neurological imaging criteria for inclusion or exclusion of acute stroke therapies based on available published neurological guidelines.? ? ? Dictated by: Lakshmi Mai M.D. on 06/19/2022 at 16:03 ? ? Approved by: Lakshmi Mai M.D. on 06/19/2022 at 16:04? CTA - brain/neck: Radiologist's Impression: [address] [address] [address] Scan Report Signed Patient: Deion Mello MR#: [id number] : 1940 Acct:[id number] Age/Sex: 81 / M Date of Service: 06/19/22 Loc: ED Accession Number: [id number] ?? Procedure: CT angio head and neck Ordering Provider: Tio Lewis D.O. PROCEDURE:? CT ANGIO HEAD AND NECK ? INDICATIONS:? code stroke ? TECHNIQUE:? Noncontrast images were performed earlier in the day and not repeated.? ? After the administration of intravenous contrast, 1 mm thick sections acquired from the aortic arch through the [place] of [place].? Post-contrast 4.5 mm thick sections then re- acquired from the foramen magnum to the vertex.? 3-dimensional dcetrtb-zzlhafdxu-ysajvuedrj (MIP) and/or volume rendering reformats were acquired of the central intracranial vasculature and neck separately. For radiation dose reduction, the following was used:? automated exposure control, adjustment of mA and/or kV according to patient size.? ? COMPARISON:? [facility], MR, MR HEAD/BRAIN WO/W CON, 04/30/2022, 18:58.? [facility], CT, CT STROKE, 05/29/2022, 10:33.? [facility], MR, MR HEAD/BRAIN WO CON, 05/29/2022, 12:55.? [facility], CT, CT ANGIO HEAD AND NECK, 05/29/2022, 10:33.? [facility], CT, CT STROKE, 06/19/2022, 15:58. ? FINDINGS:? Image quality:? Excellent.? ? BRAIN:? CSF spaces:? Ventricles are normal in size and shape.? Basal cisterns are patent.? No extra-axial fluid collections.? ? Brain:? No midline shift.? No intracranial bleeds or masses.? Rolon-white matter interface appears intact.? ? Skull and face:? Calvarium and facial bones appear intact, without suspicious lesions.? Orbits appear normal.? Note is made of age-appropriate brain parenchymal volume loss and chronic small vessel ischemic changes. ? Sinuses:? There is a mucous retention cyst seen within the left maxillary sinus.? Sinuses and mastoids are otherwise relatively clear.? ? HEAD CT ANGIOGRAPHY:? Anterior circulation:? Intracranial internal carotid arteries are normal in size and flow.? The flow within the paired anterior cerebral arteries is normal and symmetric.? The flow within the middle cerebral arteries is normal and symmetric.? The a nterior communicating artery is not well seen.? No aneurysms are seen.? ? Posterior circulation:? Visualized portions of the vertebral arteries demonstrate normal caliber, and join to form a normal appearing basilar artery.? Flow within the posterior cerebral arteries is normal and symmetric.? No aneurysms are seen.? ? NECK CT ANGIOGRAPHY:? Carotid system:? The great vessels demonstrate a conventional anatomy as they arise from the aortic arch. Atherosclerotic calcification is noted. ? The origins of the common carotid arteries appear patent.? The common carotid arteries demonstrate normal caliber and courses.? The bifurcation regions are both widely patent.? The internal carotid arteries demonstrate normal calibers and courses.? ? Posterior circulation:? The origins of the vertebral arteries both appear widely patent.? The more superior extracranial portions of both vertebral arteries also demonstrate normal courses and calibers.? They join to form a normal appearing basilar artery.? ? Soft tissues:? Visualized neck soft tissues demonstrate no suspicious abnormalities.? ? Bones:? No suspicious bony lesions.? Visualized cervical spine appears normally aligned.? Moderate cervical spine degenerative changes are seen. ? ? IMPRESSION:? No significant intracranial arterial abnormality is seen.? ? Within the arteries of the neck, no hemodynamically significant stenosis can be seen. ? Additional findings:? Left maxillary sinus mucous retention cyst Moderate cervical spine degenerative change ? Any quantitative measurements of stenosis were performed using NASCET criteria.? ? ? Dictated by: John Escalera M.D. on 06/19/2022 at 15:37 ? ? Approved by: John Escalera M.D. on 06/19/2022 at 15:45?? ECG Data Attestation: I personally reviewed and interpreted this ECG as follows: Interpretation: Atrial fibrillation Ventricular rate is [address] T wave changes MDM Narrative Medical decision making narrative: Patient is currently asymptomatic. He is medically managed with blood pressure and his AFib. He was on atorvastatin in the past but they took him off of it because of muscle weakness. His states that they were questioning whether not it was the immunoglobulin that was causing the weakness or the Lipitor or potentially his thyroid issues as they are making changes to all those. His weakness has since improved. His history physical exam is consistent with a TIA. NIH score of 0. Not a candidate for tPA. We discussed options to include admission to the hospital however after admit I am not sure what he would benefit from this admission other than a period of observation. We discussed potentially starting him back on the Lipitor but they would like to hold on doing this for now until they talk with her primary doctor and also the oncologist. Will discharge patient home to continue to take all of his medications. He was given return precautions. He expressed understanding and agreement. Discharge Plan Departure Patient Disposition: Home Clinical Impression: Transient cerebral ischemia Instructions: DI for Transient Ischemic Attack Activity Restrictions/Additional Instructions: Recommend that you continue to take all of your medications as directed and contact your primary doctor and also your oncologist for follow-up. Return to the emergency department for any new or worsening symptoms. Prescriptions: No Action levothyroxine [Synthroid] 88 mcg Tablet 88 mcg PO DAILY Qty: 30 3RF Pradaxa 150 mg capsule 150 mg PO BID atenolol 50 mg tablet 50 mg PO DAILY lisinopril 10 mg Tablet 10 mg PO DAILY acetaminophen [Tylenol] 325 mg Capsule 650 mg PO Q4H PRN (Reason: Pain (Scale Score 4-6)) pantoprazole 40 mg tablet,delayed release (DR/EC) 40 mg PO BID levothyroxine [Synthroid] 75 mcg Tablet 75 mcg PO DAILY Qty: 30 3RF Referrals: Scottie Rosenberg MD [Primary Care Provider] - Stand Alone Forms: Patient Portal/API
[2022-06-19 17:59] LABS: Add Manual Diff / Slide Review NO; Basophils Absolute Auto 100 /uL (0-100); Basophils Percent Auto 1.3 % (0-2); Eosinophils Absolute Auto 300 /uL (0-450); Eosinophils Percent Auto 7.2 % (2-4); Hematocrit 38.7 % (41-53); Hemoglobin 13.2 g/dL (13.5-17.5); Lymphocytes Absolute Auto 800 /uL (1100-4500); Lymphocytes Percent Auto 17.7 % (25-40); Mean Corpuscular HGB Conc 34.2 % (30-36); Mean Corpuscular Hemoglobin 30.6 PG (26-34); Mean Corpuscular Volume 89.2 fL (80-100); Monocytes Absolute Auto 600 /uL (0-900); Monocytes Percent Auto 13.1 % (3-14); Neutrophils Absolute Auto 2700 /uL (1500-7000); Neutrophils Percent Auto 60.7 % (50-75); Platelet Count 180 X10^3/uL (150-400); Red Blood Cell Count 4.33 X10^6/uL (4.5-5.9); Red Cell Distribution Width 12.7 % (11.6-14.8); White Blood Cell Count 4.4 X10^3/uL (4.5-11.0)
[2022-06-19 18:11] LABS: INR 1.3 (0.9-1.3); Prothrombin Time 14.4 SECONDS (10.1-12.7)
[2022-06-19 18:14] LABS: PTT Partial Thromboplastin Tim 59 SECONDS (26-36)
[2022-06-19 18:16] LABS: Alanine Aminotransferase 17 IU/L (<50); Albumin 3.8 g/dL (3.5-5.0); Albumin Globulin Ratio 1.5 (1.0-2.8); Alkaline Phosphatase 54 U/L (38-126); Aspartate Aminotransferase 38 IU/L (17-59); BUN Creatinine Ratio 18.8 (6-22); Blood Urea Nitrogen 13 mg/dL (9-20); Calcium 8.8 mg/dL (8.4-10.2); Carbon Dioxide 26 mmol/L (22-32); Chloride 91 mmol/L (98-107); Creatine Kinase 62 U/L (55-170); Estimated Glomerular Filt Rate > 60 mL/min (>60); Globulin 2.6 g/dL (1.7-4.1); Glucose 100 mg/dL (80-110); HEMOLYSIS 26 (0-50); Lipase 48 U/L (23-300); Potassium 4.2 mmol/L (3.4-5.1); Sodium 127 mmol/L (137-145); Total Protein 6.4 g/dL (6.3-8.2)
[2022-06-19 18:27] LABS: Troponin I < 0.012 ng/mL (0.01-0.034)
== END 2022-06-19 19:17 | disposition home or self-care (01) ==
PROVIDERS: Emergency Provider Emergency Medicine; PCP Family Medicine
DX: G45.9 Transient cerebral ischemic attack, unspecified (principal); H53.8 Other visual disturbances; Z79.899 Other long term (current) drug therapy; I48.91 Unspecified atrial fibrillation; Z79.01 Long term (current) use of anticoagulants; R29.700 NIHSS score 0
CPT/HCPCS: 36415; 70450; 70496; 70498; 80053; 82550; 82962; 83690; 84484; 85025; 85610; 85730; 93005; 99285; 99291

== ENCOUNTER → 2022-11-12 07:58 | Outpatient (CLI) | payer MEDICARE, OTHER, SELFPAY ==
[2022-11-12 08:52] LABS: Alanine Aminotransferase 22 IU/L (<50); Albumin 4.3 g/dL (3.5-5.0); Albumin Globulin Ratio 1.9 (1.0-2.8); Alkaline Phosphatase 79 U/L (38-126); Aspartate Aminotransferase 31 IU/L (17-59); BUN Creatinine Ratio 24.6 (6-22); Blood Urea Nitrogen 17 mg/dL (9-20); Calcium 9.4 mg/dL (8.4-10.2); Carbon Dioxide 29 mmol/L (22-32); Chloride 95 mmol/L (98-107); Cholesterol 142 mg/dL (140-199); Estimated Glomerular Filt Rate > 60 mL/min (>60); Globulin 2.3 g/dL (1.7-4.1); Glucose 86 mg/dL (80-110); HDL Cholesterol 48 mg/dL (40-60); HEMOLYSIS < 15 (0-50); LDL Cholesterol Calculated 76 mg/dL (<100); Potassium 4.3 mmol/L (3.4-5.1); Sodium 132 mmol/L (137-145); Total Protein 6.6 g/dL (6.3-8.2); Triglycerides 88 mg/dL (35-150)
[2022-11-12 09:21] LABS: TSH w/ Reflex to FT4 7.69 uIU/mL (0.47-4.68)
[2022-11-12 09:46] LABS: Free T4, Direct Thyroxine 1.41 ng/dL (0.78-2.19)
[2022-11-12 10:56] LABS: Sodium Urine Random 120 mmol/L (30-90)
[2022-11-13 15:16] LABS: Osmolality Urine 630 mOsmol/kg (.)
[2022-11-13 15:16] LABS: Osmolality, Serum 275 mOsmol/kg (280-301)
== END ==
PROVIDERS: Family Provider Family Medicine; PCP Family Medicine; Referring Provider Family Medicine; Visit Provider Family Medicine
DX: E03.9 Hypothyroidism, unspecified (principal); C43.9 Malignant melanoma of skin, unspecified; E78.5 Hyperlipidemia, unspecified; G45.9 Transient cerebral ischemic attack, unspecified; I10 Essential (primary) hypertension
CPT/HCPCS: 36415; 80053; 80061; 83930; 83935; 84300; 84439; 84443

== ENCOUNTER 2023-02-17 18:14 | Emergency (ER) | payer MEDICARE, OTHER, SELFPAY ==
[2023-02-17] VITALS (12 sets, daily range): BP systolic 119–166; BP diastolic 56–75; PULSE 78–98; RESP 18–20; TEMP 37.2–39.3; O2SAT 92–98; BMI 24.0
--- NOTE | 2023-02-17 18:18 | DI.RAD.S_ITS ---
PROCEDURE: XR CHEST 1V INDICATIONS: sepsis TECHNIQUE: One view of the chest was acquired. COMPARISON: [facility], CR, XR CHEST 1V, 05/29/2022, 10:34. FINDINGS: Surgical changes and devices: None. Lungs and pleura: Lungs are clear. No pleural effusions or pneumothorax. Mediastinum: Mediastinal contours appear normal. Heart size is mildly enlarged. Bones and chest wall: No suspicious bony lesions. Overlying soft tissues appear unremarkable. IMPRESSION: Mild cardiomegaly. No acute cardiopulmonary abnormality identified. Approved by: Craig Manley M.D. on 02/17/2023 at 18:57
--- NOTE | 2023-02-17 18:22 | ED_ITS ---
HPI - General Adult General Chief complaint: Fever Stated complaint: Fever, Weakness Time Seen by Provider: 02/17/23 18:17 History of Present Illness HPI narrative: 82-year-old male nonsmoker with history of AFib on dabigatran, hypothyroid presents by EMS for evaluation of generalized fatigue, malaise and weakness. He is had fever as high as 102 and chills over the past 24 hours and admits to the rare nausea, vomiting and diarrhea. He has occasional nasal congestion, sneezing, sore throat and cough. Denies any chest pain or shortness of breath. Denies abdominal pain. Denies dysuria, frequency or urgency. Denies any change in medications or diet. Had both flu and COVID vaccines yesterday. Does have a history of hyponatremia with similar presentation in the past Related Data Home Medications Medication Instructions Recorded Confirmed dabigatran etexilate 150 mg 150 mg PO BID 10/23/21 01/05/23 capsule (Pradaxa) acetaminophen 325 mg capsule 650 mg PO Q4H PRN Pain (Scale 04/29/22 01/05/23 (Tylenol) Score 4-6) Previous Rx's Medication Instructions Recorded Parking Permit... #1 ea 07/02/22 atenolol 25 mg tablet 25 mg PO DAILY #90 tabs 08/19/22 levothyroxine 125 mcg tablet 125 mcg PO DAILY #90 tabs 11/30/22 rosuvastatin 5 mg tablet 5 mg PO DAILY #90 tabs 11/30/22 trazodone 50 mg tablet 50 mg PO BEDTIME PRN Insomnia #90 11/30/22 tabs pantoprazole 40 mg tablet,delayed 40 mg PO DAILY #90 tabs 02/04/23 release lisinopril 10 mg tablet See Rx Instructions .Route 02/11/23 .COMPLEX #90 tabs Allergies Allergy/AdvReac Type Severity Reaction Status Date / Time No Known Drug Allergies Allergy Verified 01/05/23 14:03 Review of Systems Review of Systems Narrative: GENERAL: See HPI HEENT: D see HPI RESPIRATORY: See HPI CARDIOVASCULAR: Denies chest pain, palpitations, orthopnea, edema, GASTROINTESTINAL: See HPI : Denies dysuria, frequency, incontinence, hematuria, urinary retention. MUSCULOSKELETAL: See HPI SKIN: Denies rash, skin lesions, or other NEUROLOGIC: Denies weakness, headache, numbness, change in speech, confusion, seizures, incoordination. PSYCHIATRIC: No concerning psychosocial issues. 12 point review of systems is negative except for those stated above Patient History Medical History Shingles (~1993) Mumps (~194) Measles (~194) Chicken pox (~194) Skin cancer (~2004) Metastatic melanoma Hyperlipidemia Hypertension Surgical History Anesthesia Status post Mohs surgery History of appendectomy Family History Father Kidney failure Family/Other Substance abuse Social History Smoking Status: Never smoker Smoking Status: Never smoker alcohol intake frequency: 0-2 drinks per day Substance Use Type: does not use Exam Narrative Exam Narrative: GENERAL: [82] year old patient appears stated age. Well-developed patient, in mild distress. HEAD: Atraumatic. Normocephalic. EYES: Pupils equal round and reactive. Extraocular motions intact. No scleral icterus. No injection or drainage. ENT: Dry mucous membranes Nose without bleeding, purulent drainage. Throat without erythema, tonsillar hypertrophy or exudate. Airway patent. NECK: Trachea midline. Non tender CARDIOVASCULAR: Regular rate and rhythm without murmurs, gallops, or rubs. RESPIRATORY: Clear to auscultation. Breath sounds equal bilaterally. No wheezes, rales, or rhonchi. GASTROINTESTINAL: Abdomen soft, non-tender, nondistended. EXTREMITIES: No edema or joint tenderness. BACK: Nontender without deformity or crepitance. No flank tenderness. NEURO: AOx3. SKIN: Poor skin turgor No rash or erythema of visible areas Initial Vital Signs Initial Vital Signs: Vital Signs Pulse Rate 94 H 02/17/23 18:17 Pulse Oximetry 96 02/17/23 18:17 Course Orders Ordered: ED Orders 02/17/23 18:18 Chest [XR chest 1V] Stat Complete Blood Count AUTO DIFF Stat Covid-19 + FLU A/B + RSV - PCR Stat EKG-12 Lead Stat 02/17/23 18:20 Comprehensive Metabolic Panel Stat Lactate (Lactic Acid) Stat Lipase Stat Magnesium Stat PTT Partial Thromboplastin Jayce Stat Procalcitonin Stat Prothrombin Time INR Stat Troponin & CK Cardiac Panel Stat 02/17/23 18:40 Blood Culture Stat 02/17/23 21:54 Urine Culture Stat Urine Microscopic Stat Discontinued Medications Acetaminophen (Acetaminophen 325 Mg Tablet) 975 mg PO NOW ONE Stop: 02/17/23 18:18 Last Admin: 02/17/23 18:44 Dose: 975 mg Documented By: NIDIA Sodium Chloride (Normal Saline 0.9%) 2,220 mls @ 740 mls/hr 30 ml/kg infuse over 3 hr (2220 ml) IV NOW ONE Stop: 02/17/23 21:19 Last Infusion: 02/17/23 21:40 Dose: Infused Documented By: Admin: 02/17/23 18:45 Dose: 740 mls/hr Documented By: NIDIA Ceftriaxone Sodium 2,000 mg/ (Sodium Chloride) 100 mls @ 200 mls/hr IV NOW ONE Stop: 02/17/23 18:22 Last Infusion: 02/17/23 19:27 Dose: Infused Documented By: Admin: 02/17/23 18:45 Dose: 200 mls/hr Documented By: NIDIA Vital Signs Vital signs: Vital Signs - 8 hr 02/17/23 18:17 02/17/23 18:18 02/17/23 18:18 Temperature Pulse Rate 94 H 89 Respiratory Rate Blood Pressure 166/74 H Pulse Oximetry 96 92 Oxygen Delivery Method 02/17/23 18:23 02/17/23 18:44 02/17/23 19:00 Temperature 102.7 F H 102.7 F H Pulse Rate 84 88 Respiratory Rate 20 Blood Pressure 166/72 H Pulse Oximetry 97 98 Oxygen Delivery Method Room Air 02/17/23 19:26 02/17/23 19:26 02/17/23 19:30 Temperature Pulse Rate 98 H Respiratory Rate Blood Pressure 146/67 H 129/61 Pulse Oximetry 96 Oxygen Delivery Method Room Air 02/17/23 20:00 02/17/23 20:00 02/17/23 20:00 Temperature 99.6 F Pulse Rate 92 H Respiratory Rate 18 Blood Pressure 126/75 Pulse Oximetry 95 Oxygen Delivery Method 02/17/23 20:30 02/17/23 20:30 02/17/23 21:00 Temperature Pulse Rate 91 H Respiratory Rate Blood Pressure 119/56 L 132/60 Pulse Oximetry 94 Oxygen Delivery Method Room Air 02/17/23 21:00 02/17/23 21:30 02/17/23 21:30 Temperature Pulse Rate 91 H 82 Respiratory Rate Blood Pressure 134/60 Pulse Oximetry 94 94 Oxygen Delivery Method Room Air 02/17/23 22:37 02/17/23 22:37 Temperature 98.9 F Pulse Rate 78 Respiratory Rate Blood Pressure 143/73 H Pulse Oximetry 98 Oxygen Delivery Method Room Air Medical Decision Making Lab Data 02/17/23 18:18 02/17/23 18:20 Labs: Lab Results 02/17/23 02/17/23 02/17/23 Range/Units 18:18 18:20 21:54 WBC 3.9 L (4.5-11.0) X10^3/uL RBC 4.94 (4.5-5.9) X10^6/uL Hgb 14.4 (13.5-17.5) g/dL Hct 42.4 (41-53) % MCV 85.7 (80-100) fL MCH 29.2 (26-34) PG MCHC 34.0 (30-36) % RDW 13.9 (11.6-14.8) % Plt Count 158 (150-400) X10^3/uL Neut % (Auto) 71.5 (50-75) % Lymph % (Auto) 17.8 L (25-40) % Stephenson % (Auto) 8.8 (3-14) % Eos % (Auto) 1.4 L (2-4) % Baso % (Auto) 0.5 (0-2) % Neut # (Auto) 2800 (5708-7371) /uL Lymph # (Auto) 700 L (2605-7737) /uL Stephenson # (Auto) 300 (0-900) /uL Eos # (Auto) 100 (0-450) /uL Baso # (Auto) 0 (0-100) /uL PT 14.7 H (10.1-12.7) SECONDS INR 1.3 (0.9-1.3) APTT 47 H (26-36) SECONDS Sodium 128 L (137-145) mmol/L Potassium 3.9 (3.4-5.1) mmol/L Chloride 94 L (98-107) mmol/L Carbon Dioxide 27 (22-32) mmol/L BUN 21 H (9-20) mg/dL Creatinine 0.83 (0.66-1.25) mg/dL Estimated GFR > 60 (>60) mL/min BUN/Creatinine Ratio 25.3 H (6-22) Glucose 83 (80-110) mg/dL Lactate 1.1 (0.7-2.1) mmol/L Calcium 9.4 (8.4-10.2) mg/dL Magnesium 1.5 L (1.6-2.3) mg/dL Total Bilirubin 1.4 H (0.2-1.3) mg/dL AST 30 (17-59) IU/L ALT 23 (<50) IU/L Alkaline Phosphatase 72 (38-126) U/L Total Creatine Kinase 35 L (55-170) U/L Troponin I < 0.012 (0.01-0.034) ng/mL Total Protein 6.9 (6.3-8.2) g/dL Albumin 4.0 (3.5-5.0) g/dL Globulin 2.9 (1.7-4.1) g/dL Albumin/Globulin Ratio 1.4 (1.0-2.8) Lipase 55 (23-300) U/L Procalcitonin 0.13 (<0.5) ng/mL Urine RBC 0-1/hpf (0-5/HPF) Urine WBC 1-5/hpf (0-5/HPF) Ur Squamous Epith Cells None seen (0-5/HPF) Urine Bacteria Occasional (0-1) (None) Urine Mucus 1+ H (Negative) Ur Culture Indicated? Specimen cultured SARS-CoV-2 (PCR) Negative (Negative) Influenza A (RT-PCR) Flu a negative (NEGATIVE) Influenza B (RT-PCR) Flu b negative (NEGATIVE) RSV (PCR) Negative (Negative) Urine Dip Bedside Urine Glucose Negative Bedside Urine Bilirubin - Negative Bedside Urine Ketone +/- 5 Urine Specific [place] 1.020 Bedside Urine Occult Blood - Negative Bedside Urine pH 6.0 Bedside Urine Protein + 30 Bedside Urine Urobilinogen - Negative Bedside Urine Nitrite - Negative Bedside Urine Leukocytes +/- 15 Esterase Point of care testing: Urine Dip Bedside Urine Glucose Negative Bedside Urine Bilirubin - Negative Bedside Urine Ketone +/- 5 Urine Specific [place] 1.020 Bedside Urine Occult Blood - Negative Bedside Urine pH 6.0 Bedside Urine Protein + 30 Bedside Urine Urobilinogen - Negative Bedside Urine Nitrite - Negative Bedside Urine Leukocytes +/- 15 Esterase MDM Narrative Medical decision making narrative: CC: 82-year-old male with fever, chills and generalized weakness Complicating co-morbidities: Age, AFib, anticoagulation, hypertension, hyperlipidemia Data collected from: Patient Medical records reviewed: Prior notes reviewed in our EMR Differential considered, but not limited to: Vaccine reaction versus sepsis from other source such as pneumonia versus viral infection versus urinary versus hyponatremia versus other Exam documented above, pertinent findings include: Appears to feel unwell, dry mucous membranes and poor skin turgor, heart rate regular, lungs clear in abdomen soft Lab Test results independently reviewed as above. Pertinent findings: No leukocytosis, left shift or signs of anemia. Sodium in the upper 120s is at his relative baseline, other electrolytes and renal function within normal limits. Respiratory panel, procalcitonin, lactate all negative, negative urine Independently reviewed EKG as above Imaging studies independently reviewed: Chest x-ray without acute findings Treatments: Fluids, early antibiotics given sepsis triggers early on Re-evaluations: Patient with significant improvement after above-stated therapies. Fever controlled, vital signs normalized, patient ambulatory and at his baseline Discussion: Patient presents with fever, weakness and chills. Multiple infectious etiologies considered as noted above, urine, chest x-ray and labs all reassuring without obvious abnormalities, respiratory panel negative. Additionally he is had relatively similar symptoms in the past with critically low sodium but today he is at his relative baseline prior to receiving sepsis fluids. At this point it seems most likely that his symptoms are consequence of his recent flu and COVID vaccines. There is no indication of ongoing sepsis or an infectious process that would require treatment. Return precautions discussed and questions answered to his apparent satisfaction Disposition: see below, along with detailed discharge instructions that have been reviewed with patient as well as indications for ED re-evaluation and additional outpatient follow up Discharge Plan Departure Patient Disposition: Home Clinical Impression: Fever, Vaccine reaction, Chronic hyponatremia Instructions: DI for Fever (Symptom) -- Adult Activity Restrictions/Additional Instructions: *You have been diagnosed with [fever and generalized weakness. As we discussed your history and physical exam are very reassuring as are your labs here. Your sodium is chronically low and today you are in your normal range. There is no sign of infection in the blood work, chest x-ray or urine. It seems most likely your symptoms are related to your recent vaccines.] *What to do: *Please continue to take your regular medications as directed. [ ] New medication prescriptions sent to your pharmacy: [ ] [ ] New medication written as a paper prescription [ ] No new medications given *Please follow up with your primary care provider in 2-3 days, call for an appointment. Let them know you were seen in the Emergency Department and that we ask that you be seen in follow up. We will electronically transmit a record of today's note if your PCP is in our system *If you do not have a primary care provider please contact the [facility] Resource line at [phone]. They will ask some questions about your medical history and help get you set up with a doctor in the community. *Return to Emergency Department if you should have any new, worsening or concerning symptoms, such as [fever greater than 101 F, shaking chills, worsening pain, persistent vomiting or other bothersome symptoms] Prescriptions: No Action (DME) Parking Permit... See Rx Instructions .ROUTE .MEDSUPPLY Qty: 1 0RF Rx Instructions: I find this patient to be medically disabled and qualified for Disabled Parking as indicated , and signed, on the Accompanying Disabled Parking Application for Individuals. pantoprazole 40 mg tablet,delayed release (DR/EC) 40 mg PO DAILY Qty: 90 0RF Rx Instructions: Take one tab by mouth daily lisinopril 10 mg tablet See Rx Instructions .ROUTE .COMPLEX Qty: 90 0RF Dose Instruction: TAKE 1 TABLET BY MOUTH DAILY Rx Instructions: TAKE 1 TABLET BY MOUTH DAILY Pradaxa 150 mg capsule 150 mg PO BID levothyroxine 125 mcg tablet 125 mcg PO DAILY Qty: 90 1RF rosuvastatin 5 mg tablet 5 mg PO DAILY Qty: 90 1RF trazodone 50 mg tablet 50 mg PO BEDTIME PRN (Reason: Insomnia) Qty: 90 1RF atenolol 25 mg tablet 25 mg PO DAILY Qty: 90 3RF acetaminophen [Tylenol] 325 mg Capsule 650 mg PO Q4H PRN (Reason: Pain (Scale Score 4-6)) Referrals: Scottie Rosenberg MD [Primary Care Provider] - Stand Alone Forms: Patient Portal/API
[2023-02-17 18:36] LABS: INR 1.3 (0.9-1.3); Prothrombin Time 14.7 SECONDS (10.1-12.7)
[2023-02-17 18:36] LABS: Add Manual Diff / Slide Review NO; Basophils Absolute Auto 0 /uL (0-100); Basophils Percent Auto 0.5 % (0-2); Eosinophils Absolute Auto 100 /uL (0-450); Eosinophils Percent Auto 1.4 % (2-4); Hematocrit 42.4 % (41-53); Hemoglobin 14.4 g/dL (13.5-17.5); Lymphocytes Absolute Auto 700 /uL (1100-4500); Lymphocytes Percent Auto 17.8 % (25-40); Mean Corpuscular Hemoglobin 29.2 PG (26-34); Mean Corpuscular Volume 85.7 fL (80-100); Monocytes Absolute Auto 300 /uL (0-900); Monocytes Percent Auto 8.8 % (3-14); Neutrophils Absolute Auto 2800 /uL (1500-7000); Neutrophils Percent Auto 71.5 % (50-75); Platelet Count 158 X10^3/uL (150-400); Red Blood Cell Count 4.94 X10^6/uL (4.5-5.9); Red Cell Distribution Width 13.9 % (11.6-14.8); White Blood Cell Count 3.9 X10^3/uL (4.5-11.0)
[2023-02-17 18:39] LABS: PTT Partial Thromboplastin Tim 47 SECONDS (26-36)
[2023-02-17] MEDS: ACETAMINOPHEN 325 MG TABLET 975 MG PO (18:44)
[2023-02-17] MEDS: SODIUM CHLORIDE 0.9% 740 ML IV (18:45)
[2023-02-17] MEDS: cefTRIAXone 2,000 MG in SODIUM CHLORIDE 0.9% 100 ML 200 MG IV (18:45)
[2023-02-17 18:48] LABS: Lactate (Lactic Acid) 1.1 mmol/L (0.7-2.1)
[2023-02-17 18:50] LABS: Alanine Aminotransferase 23 IU/L (<50); Albumin Globulin Ratio 1.4 (1.0-2.8); Alkaline Phosphatase 72 U/L (38-126); Aspartate Aminotransferase 30 IU/L (17-59); BUN Creatinine Ratio 25.3 (6-22); Bilirubin Total 1.4 mg/dL (0.2-1.3); Blood Urea Nitrogen 21 mg/dL (9-20); Calcium 9.4 mg/dL (8.4-10.2); Carbon Dioxide 27 mmol/L (22-32); Chloride 94 mmol/L (98-107); Creatine Kinase 35 U/L (55-170); Estimated Glomerular Filt Rate > 60 mL/min (>60); Globulin 2.9 g/dL (1.7-4.1); Glucose 83 mg/dL (80-110); HEMOLYSIS < 15 (0-50); Lipase 55 U/L (23-300); Magnesium 1.5 mg/dL (1.6-2.3); Potassium 3.9 mmol/L (3.4-5.1); Sodium 128 mmol/L (137-145); Total Protein 6.9 g/dL (6.3-8.2)
[2023-02-17 19:01] LABS: Troponin I < 0.012 ng/mL (0.01-0.034)
[2023-02-17 19:06] LABS: Procalcitonin 0.13 ng/mL (<0.5)
[2023-02-17 19:12] LABS: Influenza A - CEPHEID Flu A NEGATIVE (NEGATIVE); Influenza B - CEPHEID Flu B NEGATIVE (NEGATIVE); Respiratory Syncytial Virus Negative (Negative)
[2023-02-17 19:13] LABS: COVID-19 CEPHEID 4-PLEX PCR Negative (Negative)
--- NOTE | 2023-02-17 22:00 | PC.NURSE ---
Pt able to ambulate with walker without difficulty at his baseline. Pt and feel comfortable going home. Has walker at home.
[2023-02-17 22:18] LABS: Bacteria Urine Occasional (0-1); Culture Indicated Urine Specimen Cultured; Mucus Urine 1+ (Negative); RBC Urine 0-1/HPF (0-5/HPF); Squamous Epithelial Cell Urine None Seen (0-5/HPF); WBC Urine 1-5/HPF (0-5/HPF)
== END 2023-02-17 22:47 | disposition home or self-care (01) ==
PROVIDERS: Emergency Provider Emergency Medicine; Family Provider Family Medicine; PCP Family Medicine
DX: R50.9 Fever, unspecified (principal); T50.B95A Adverse effect of other viral vaccines, initial encounter; E87.1 Hypo-osmolality and hyponatremia; Z20.822 Contact with and (suspected) exposure to COVID-19
CPT/HCPCS: 0241U; 36415; 71045; 80053; 81003; 81015; 82550; 83605; 83690; 83735; 84145; 84484; 85025; 85610; 85730; 87040; 87086; 93005; 96365; 99284; J0696

== ENCOUNTER 2023-08-29 18:54 | Emergency (ER) | payer MEDICARE, OTHER, SELFPAY ==
[2023-08-29] VITALS (8 sets, daily range): BP systolic 139–196; BP diastolic 77–96; PULSE 101–123; RESP 18–25; TEMP 37.3; O2SAT 81–96
--- NOTE | 2023-08-29 19:12 | ED_ITS ---
HPI - Fall General Chief Complaint: Fall Stated Complaint: GLF Time Seen by Provider: 08/29/23 18:59 Source: patient and family Mode of arrival: Wheelchair History of Present Illness HPI Narrative: 82-year-old male with reported history of a fib on pradaxa, stage IV melanoma, previously on immunotherapy, however reported in remission prsents by private vehicle from home for generalized weakness. Patient recently returned from vacation and both he and his are sick with an upper respiratory infection. Patient has been laying in bed not eating or drinking much. He tired to get out of bed and was too weak, sliding down to the floor. Patient denies hitting head, denies LOC. He was unable to get up off the floor due to his weakness. EMS called to evaluate the patient, but he declined transport and his hillary him in POV. Patient states he is normally globally weak, but even weaker today. He states that even on a good day he would not have been able to get off the floor unassisted. He was not eating or drinking much today because I just didn't feel like it. Denies pain anywhere. Related Data Home Medications Medication Instructions Recorded Confirmed dabigatran etexilate 150 mg 150 mg PO BID 10/23/21 06/01/23 capsule (Pradaxa) acetaminophen 325 mg capsule 650 mg PO Q4H PRN Pain (Scale 04/29/22 06/01/23 (Tylenol) Score 4-6) Previous Rx's Medication Instructions Recorded Parking Permit... #1 ea 07/02/22 rosuvastatin 5 mg tablet 5 mg PO DAILY #90 tabs 11/30/22 trazodone 50 mg tablet 50 mg PO BEDTIME PRN Insomnia #90 05/04/23 tabs levothyroxine 125 mcg tablet 125 mcg PO DAILY #90 tabs 05/25/23 lisinopril 10 mg tablet 10 mg PO DAILY #90 tabs 05/25/23 fluocinonide 0.05 % topical 1 applic topical BID #30 grams 06/01/23 ointment fluocinonide 0.05 % topical 1 applic topical BID PRN lichen 06/01/23 ointment planus #30 grams atenolol 25 mg tablet 25 mg PO DAILY #90 tabs 06/30/23 pantoprazole 40 mg tablet,delayed 40 mg PO DAILY #90 tabs 06/30/23 release Allergies Allergy/AdvReac Type Severity Reaction Status Date / Time No Known Drug Allergies Allergy Verified 06/01/23 15:02 Review of Systems Review of Systems Narrative: see HPI Patient History Medical History Shingles (~1993) Mumps (~194) Measles (~194) Chicken pox (~194) Skin cancer (~2004) Metastatic melanoma Hyperlipidemia Hypertension Surgical History Anesthesia Status post Mohs surgery History of appendectomy Family History Father Kidney failure Family/Other Substance abuse Social History Smoking Status: Never smoker Smoking Status: Never smoker alcohol intake frequency: other Substance Use Type: does not use Exam Initial Vital Signs Initial Vital Signs: Vital Signs Blood Pressure 139/79 08/29/23 18:57 Const: Awake, alert, debilitated, frail, appears chronically unwell Cardiac: Irregularly irregular rhythm RESP: unlabored, clear bilaterally, no wheezing GI: Soft, nontender, nondistended, no rebound, no guarding MSK: Atraumatic, full range of motion, pulses equal Skin: Warm, Dry, intact, no rashes Neuro: AO x3, CN II-XII grossly intact, moves all extremities equally. Very poor strength globally Course Orders Ordered: ED Orders 08/29/23 19:12 Chest [XR chest 1V] Stat EKG-12 Lead Stat 08/29/23 19:18 CBC Auto Diff [Complete Blood Count AUTO DIFF] Stat CMP [Comprehensive Metabolic Panel] Stat Lactate (Lactic Acid) Stat MAG [Magnesium] Stat PT [Prothrombin Time INR] Stat Procalcitonin Stat Respiratory Panel (Film Array) Stat Troponin & CK Cardiac Panel Stat 08/29/23 20:20 UA Complete [Urinalysis and Microscopic] Stat Discontinued Medications Sodium Chloride (Normal Saline 0.9%) 1,000 mls @ 1,000 mls/hr IV BOLUS ONE Stop: 08/29/23 20:10 Last Infusion: 08/29/23 22:53 Dose: Infused Documented By: Admin: 08/29/23 19:37 Dose: 1,000 mls/hr Documented By: TOMER Magnesium Oxide (Magnesium Oxide 400 Mg Tablet) 400 mg PO NOW ONE Stop: 08/29/23 19:48 Last Admin: 08/29/23 20:14 Dose: 400 mg Documented By: TOMER Vital Signs Vital signs: Vital Signs - 8 hr 08/29/23 18:57 08/29/23 19:00 08/29/23 19:06 Temperature 99.1 F Pulse Rate 101 H Respiratory Rate 20 Blood Pressure 139/79 169/96 H 169/96 H Pulse Oximetry 96 Oxygen Delivery Method Room Air 08/29/23 19:30 08/29/23 19:30 08/29/23 20:00 Temperature Pulse Rate 104 H Respiratory Rate 25 H Blood Pressure 167/80 H 196/87 H Pulse Oximetry 81 L Oxygen Delivery Method 08/29/23 20:00 08/29/23 20:04 08/29/23 20:04 Temperature Pulse Rate 112 H 106 H Respiratory Rate 25 H 22 Blood Pressure 171/88 H Pulse Oximetry 95 94 Oxygen Delivery Method 08/29/23 20:30 08/29/23 20:30 08/29/23 21:00 Temperature Pulse Rate 113 H Respiratory Rate 24 Blood Pressure 165/86 H 171/77 H Pulse Oximetry 94 Oxygen Delivery Method 08/29/23 21:00 08/29/23 22:00 Temperature Pulse Rate 123 H Respiratory Rate 18 Blood Pressure Pulse Oximetry 95 Oxygen Delivery Method Room Air MDM - Fall Differential Diagnosis Differential diagnosis: Likely syncope, dislocation of shoulder region and fracture of wrist Lab Data 08/29/23 19:18 08/29/23 19:18 Labs: Lab Results 08/29/23 08/29/23 Range/Units 19:18 20:20 WBC 5.4 (4.5-11.0) X10^3/uL RBC 4.94 (4.5-5.9) X10^6/uL Hgb 14.6 (13.5-17.5) g/dL Hct 43.1 (41-53) % MCV 87.2 (80-100) fL MCH 29.6 (26-34) PG MCHC 33.9 (30-36) % RDW 13.4 (11.6-14.8) % Plt Count 164 (150-400) X10^3/uL Neut % (Auto) 85.9 H (50-75) % Lymph % (Auto) 7.5 L (25-40) % [place] % (Auto) 4.9 (3-14) % Eos % (Auto) 1.3 L (2-4) % Baso % (Auto) 0.4 (0-2) % Neut # (Auto) 4600 (3009-3485) /uL Lymph # (Auto) 400 L (8134-0206) /uL [place] # (Auto) 300 (0-900) /uL Eos # (Auto) 100 (0-450) /uL Baso # (Auto) 0 (0-100) /uL PT 14.4 H (9.4-12.5) SECONDS INR 1.3 (0.9-1.3) Sodium 127 L (137-145) mmol/L Potassium 4.3 (3.4-5.1) mmol/L Chloride 93 L (98-107) mmol/L Carbon Dioxide 27 (22-32) mmol/L BUN 15 (9-20) mg/dL Creatinine 0.68 (0.66-1.25) mg/dL Estimated GFR > 60 (>60) mL/min BUN/Creatinine Ratio 22.1 H (6-22) Glucose 94 (80-110) mg/dL Lactate 1.4 (0.7-2.1) mmol/L Calcium 9.5 (8.4-10.2) mg/dL Magnesium 1.5 L (1.6-2.3) mg/dL Total Bilirubin 1.5 H (0.2-1.3) mg/dL AST 36 (17-59) IU/L ALT 20 (<50) IU/L Alkaline Phosphatase 75 (38-126) U/L Total Creatine Kinase 55 (55-170) U/L Troponin I < 0.012 (0.01-0.034) ng/mL Total Protein 7.5 (6.3-8.2) g/dL Albumin 4.5 (3.5-5.0) g/dL Globulin 3.0 (1.7-4.1) g/dL Albumin/Globulin Ratio 1.5 (1.0-2.8) Procalcitonin 0.08 (<0.5) ng/mL Urine Color Yellow Urine Appearance Clear Urine pH 7.0 (4.5-8.0) Ur Specific [place] 1.020 (1.000-1.035) Urine Protein Trace H (Negative) Urine Glucose (UA) Negative (Negative) g/dL Urine Ketones 1+ H (NEGATIVE) Urine Occult Blood Negative (Negative) Urine Nitrate Negative (Negative) Urine Bilirubin Negative (NEGATIVE) Urine Urobilinogen 0.2 (0.2) E.U./dL Ur Leukocyte Esterase Negative (NEGATIVE) Urine RBC None seen (0-5/HPF) Urine WBC None seen (0-5/HPF) Ur Squamous Epith Cells None seen (0-5/HPF) Urine Bacteria None seen (None) Ur Culture Indicated? Cult not indicated Vol Urine Centrifuged 10ml (spun) Chlamy pneumoniae PCR Not detected (Not Detect) Adenovirus (PCR) Not detected (Not Detect) B.parapertussis DNA PCR Not detected (Not Detecte) Coronavirus OC43 (PCR) Not detected (Not Detect) Coronavirus HKU1 (PCR) Not detected (Not Detect) Coronavirus 229E (PCR) Not detected (Not Detect) SARS-CoV-2 (PCR) Not detected (Not Detecte) Coronavirus NL63 (PCR) Not detected (Not Detect) Human Metapneumovir PCR Not detected (Not Detect) Influenza Type A (PCR) Not detected (Not Detect) Influenza Type B (PCR) Not detected (Not Detect) M. pneumoniae (PCR) Not detected (Not Detect) Parainfluenza 1 (PCR) Not detected (Not Detect) Parainfluenza 2 (PCR) Not detected (Not Detect) Parainfluenza 3 (PCR) Not detected (Not Detect) Parainfluenza 4 (PCR) Not detected (Not Detect) RSV (PCR) Not detected (Not Detect) Entero/Rhino (PCR) Detected H (Not Detect) Imaging Data Chest x-ray: Radiologist's Impression: PROCEDURE: XR CHEST 1V INDICATIONS: GEN WEAKNESS TECHNIQUE: One view of the chest was acquired. COMPARISON: [facility], , XR CHEST 1V, 02/17/2023, 18:17. FINDINGS: Surgical changes and devices: None. Lungs and pleura: Lungs are clear. No pleural effusions or pneumothorax. Mediastinum: Mediastinal contours appear stable. Heart size is normal. Bones and chest wall: No suspicious bony lesions. Overlying soft tissues appear unremarkable. IMPRESSION: Stable radiographic evaluation of the chest without acute cardiopulmonary abnormalities or focal airspace disease. Dictated by: Surya Bragg M.D. on 08/29/2023 at 19:43 Approved by: Surya Bragg M.D. on 08/29/2023 at 19:49 [facility] Narrative Medical decision making narrative: Patient with generalized weakness, unable to get off the floor after sliding out of bed. He was very poor muscle strength in upper and lower extremities, but no focal deficits. Laboratory work is reviewed. WBC count 5.4, hemoglobin 14.6, platelets 164, sodium 127 (baseline 127-132), potassium 4.3, creatinine 0.68, troponin undetectable, CK 55. Chest x-ray reviewed, no abnormalities identified. Trace ketones on urinalysis without any indicators of infection. Viral panel positive for rhino virus. Patient and informed of all lab and imaging findings. At this time no indication for hospitalization. very upset, stating that he is too weak for her to care at home and she was afraid that he will fall if he tries to get up and he can't get out of bed in his current condition. was offered opportunity to transport patient by BLS to home or he could stay in the emergency department overnight to have PT/[facility] consult for possible rehab or placement. declined all of these interventions and stated that we did not do the appropriate tests to determine why the patient is so much weaker today. She was able to call a friend to help transport the patient back to their home. Discharge Plan Departure Patient Disposition: Home Clinical Impression: Generalized weakness, Rhinovirus Instructions: DI for Muscle Weakness Activity Restrictions/Additional Instructions: Your laboratory work was normal. Your respiratory panel was positive for rhino virus, which is 1 of the viruses that causes the common cold. There is no medicine that will care this but it will go away eventually with time. Even though you were not hungry or thirsty it was important that you keep up your hydration and at least drink fluids. Prescriptions: No Action (DME) Parking Permit... See Rx Instructions .ROUTE .MEDSUPPLY Qty: 1 0RF Rx Instructions: I find this patient to be medically disabled and qualified for Disabled Parking as indicated , and signed, on the Accompanying [employer] ([employer] Parking Application for Individuals. trazodone 50 mg tablet 50 mg PO BEDTIME PRN (Reason: Insomnia) Qty: 90 1RF levothyroxine 125 mcg tablet 125 mcg PO DAILY Qty: 90 1RF lisinopril 10 mg tablet 10 mg PO DAILY Qty: 90 1RF atenolol 25 mg tablet 25 mg PO DAILY Qty: 90 1RF pantoprazole 40 mg tablet,delayed release (DR/EC) 40 mg PO DAILY Qty: 90 1RF Rx Instructions: Take one tab by mouth daily Pradaxa 150 mg capsule 150 mg PO BID rosuvastatin 5 mg tablet 5 mg PO DAILY Qty: 90 1RF fluocinonide 0.05 % ointment 1 applic topical BID Qty: 30 0RF fluocinonide 0.05 % ointment 1 applic topical BID PRN (Reason: lichen planus) Qty: 30 3RF Rx Instructions: Apply to affected area once or twice daily as needed acetaminophen [Tylenol] 325 mg Capsule 650 mg PO Q4H PRN (Reason: Pain (Scale Score 4-6)) Referrals: Scottie Rosenberg MD [Primary Care Provider] - Stand Alone Forms: Patient Portal/API
[2023-08-29 19:31] LABS: Add Manual Diff / Slide Review NO; Basophils Absolute Auto 0 /uL (0-100); Basophils Percent Auto 0.4 % (0-2); Eosinophils Absolute Auto 100 /uL (0-450); Eosinophils Percent Auto 1.3 % (2-4); Hematocrit 43.1 % (41-53); Hemoglobin 14.6 g/dL (13.5-17.5); Lymphocytes Absolute Auto 400 /uL (1100-4500); Lymphocytes Percent Auto 7.5 % (25-40); Mean Corpuscular HGB Conc 33.9 % (30-36); Mean Corpuscular Hemoglobin 29.6 PG (26-34); Mean Corpuscular Volume 87.2 fL (80-100); Monocytes Absolute Auto 300 /uL (0-900); Monocytes Percent Auto 4.9 % (3-14); Neutrophils Absolute Auto 4600 /uL (1500-7000); Neutrophils Percent Auto 85.9 % (50-75); Platelet Count 164 X10^3/uL (150-400); Red Blood Cell Count 4.94 X10^6/uL (4.5-5.9); Red Cell Distribution Width 13.4 % (11.6-14.8); White Blood Cell Count 5.4 X10^3/uL (4.5-11.0)
[2023-08-29 19:37] LABS: INR 1.3 (0.9-1.3); Prothrombin Time 14.4 SECONDS (9.4-12.5)
[2023-08-29] MEDS: SODIUM CHLORIDE 0.9% 1,000 ML 1000 ML IV (19:37)
[2023-08-29 19:40] LABS: Lactate (Lactic Acid) 1.4 mmol/L (0.7-2.1)
[2023-08-29 19:41] LABS: Alanine Aminotransferase 20 IU/L (<50); Albumin 4.5 g/dL (3.5-5.0); Albumin Globulin Ratio 1.5 (1.0-2.8); Alkaline Phosphatase 75 U/L (38-126); Aspartate Aminotransferase 36 IU/L (17-59); BUN Creatinine Ratio 22.1 (6-22); Bilirubin Total 1.5 mg/dL (0.2-1.3); Blood Urea Nitrogen 15 mg/dL (9-20); Calcium 9.5 mg/dL (8.4-10.2); Carbon Dioxide 27 mmol/L (22-32); Chloride 93 mmol/L (98-107); Creatine Kinase 55 U/L (55-170); Estimated Glomerular Filt Rate > 60 mL/min (>60); Glucose 94 mg/dL (80-110); HEMOLYSIS 41 (0-50); Magnesium 1.5 mg/dL (1.6-2.3); Potassium 4.3 mmol/L (3.4-5.1); Sodium 127 mmol/L (137-145); Total Protein 7.5 g/dL (6.3-8.2)
[2023-08-29 19:53] LABS: Troponin I < 0.012 ng/mL (0.01-0.034)
[2023-08-29 19:58] LABS: Procalcitonin 0.08 ng/mL (<0.5)
[2023-08-29] MEDS: MAGNESIUM OXIDE 400 MG TABLET PO (20:14)
[2023-08-29 20:27] LABS: Appearance Urine UA CLEAR; Bilirubin Urine UA NEGATIVE (NEGATIVE); Color Urine UA YELLOW; Glucose Urine UA NEGATIVE (Negative); Ketones Urine UA 1+ (NEGATIVE); Leukocyte Esterase Urine UA NEGATIVE (NEGATIVE); Nitrite Urine UA NEGATIVE (Negative); Occult Blood Urine UA NEGATIVE (Negative); Protein Urine UA TRACE (Negative); Urobilinogen Urine UA 0.2 E.U./dL (0.2)
[2023-08-29 20:33] LABS: Adenovirus Not Detected (Not Detect); B. parapertussis Not Detected (Not Detecte); Bordetella pertussis Not Detected (Not Detect); Chlamydophila pneumoniae Not Detected (Not Detect); Coronavirus 229E Not Detected (Not Detect); Coronavirus HKU1 Not Detected (Not Detect); Coronavirus NL 63 Not Detected (Not Detect); Coronavirus OC43 Not Detected (Not Detect); Human Metapneumovirus Not Detected (Not Detect); Human Rhinovirus/Enterovirus Detected (Not Detect); Influenza A Not Detected (Not Detect); Influenza B Not Detected (Not Detect); Mycoplasma pneumoniae Not Detected (Not Detect); Parainfluenza Virus 1 Not Detected (Not Detect); Parainfluenza Virus 2 Not Detected (Not Detect); Parainfluenza Virus 3 Not Detected (Not Detect); Parainfluenza Virus 4 Not Detected (Not Detect); Respiratory Syncytial Virus Not Detected (Not Detect); SARS- CoV-2 Not Detected (Not Detecte)
[2023-08-29 20:37] LABS: Bacteria Urine None Seen; Culture Indicated Urine Cult Not Indicated; RBC Urine None Seen (0-5/HPF); Squamous Epithelial Cell Urine None Seen (0-5/HPF); Urine Volume 10mL (spun); WBC Urine None Seen (0-5/HPF)
--- NOTE | 2023-08-29 21:24 | PC.NURSE ---
Provider to bedside to speak with patients family. Pts family member expressing concern that something is still wrong with the pt despite test results. Provider answering questions for family. Pts family refusing BLS transport home due to concerns of payment. Pts family opting to take him home POV with help from a neighbor.
--- NOTE | 2023-08-29 22:00 | PC.NURSE ---
This RN to bedside to speak with pts family. Pts family given options following results. Pt told that the hospital could arrange for BLS transport home, staff help getting the pt in the car, or the pt could stay overnight until SW available in the morning for SNF placement screening. Pts family states that she has called for a friend to come and help her to get the pt home. Pts family member also states that she would like a stroke assessment to be conducted on the pt as she had not seen one done and was concerned that the pt had a stroke. This RN explains that the EMD did conduct this assessment on presentation. This RN conducted an assessment with no significant findings. This appears to satisfy the family member. Pt was then helped from bed into a wheelchair with a family friend watching. Pt helped to use a urinal, and wheeled outside the ER to a waiting car. Pt was then helped to stand and sit into a car. Pts family friend then asked for tips on helping the pt out of the car. Pts family advised that they could call 911 for help. They were instructed to state that they had a non-emergent lift assist and may be provided. Pts family member and friend verbalized understanding. Pt was buckled in for his safety and was driven away from the ER without incident.
== END 2023-08-29 22:00 | disposition home or self-care (01) ==
PROVIDERS: Emergency Provider Emergency Medicine; Family Provider Family Medicine; PCP Family Medicine
DX: R53.1 Weakness (principal); B34.8 Other viral infections of unspecified site; Z79.899 Other long term (current) drug therapy; Z20.822 Contact with and (suspected) exposure to COVID-19
CPT/HCPCS: 36415; 51798; 71045; 80053; 81001; 82550; 83605; 83735; 84145; 84484; 85025; 85610; 87633; 93005; 96360; 96361; 99284

== ENCOUNTER → 2023-12-17 07:16 | Outpatient (CLI) | payer MEDICARE, OTHER, SELFPAY ==
[2023-12-17 08:37] LABS: Alanine Aminotransferase 15 IU/L (<50); Albumin 3.8 g/dL (3.5-5.0); Albumin Globulin Ratio 1.7 (1.0-2.8); Alkaline Phosphatase 78 U/L (38-126); Aspartate Aminotransferase 29 IU/L (17-59); Carbon Dioxide 28 mmol/L (22-32); Chloride 94 mmol/L (98-107); Globulin 2.3 g/dL (1.7-4.1); Glucose 86 mg/dL (80-110); HEMOLYSIS 16 (0-50); Potassium 4.6 mmol/L (3.4-5.1); Sodium 127 mmol/L (137-145); Total Protein 6.1 g/dL (6.3-8.2)
[2023-12-17 08:44] LABS: Blood Urea Nitrogen 20 mg/dL (9-20); Estimated Glomerular Filt Rate > 60 mL/min (>60)
[2023-12-17 09:14] LABS: Free T4, Direct Thyroxine 1.28 ng/dL (0.78-2.19)
== END ==
PROVIDERS: Family Provider Family Medicine; PCP Family Medicine; Referring Provider Family Medicine; Visit Provider Family Medicine
DX: D64.9 Anemia, unspecified (principal); E03.9 Hypothyroidism, unspecified; E78.5 Hyperlipidemia, unspecified; E87.1 Hypo-osmolality and hyponatremia; E03.2 Hypothyroidism due to medicaments and other exogenous substances; C43.9 Malignant melanoma of skin, unspecified
CPT/HCPCS: 36415; 80053; 84439; 84443

== ENCOUNTER → 2024-01-25 11:19 | Outpatient (CLI) | payer MEDICARE, OTHER, SELFPAY ==
[2024-01-25 11:57] LABS: Appearance Urine UA CLEAR; Bilirubin Urine UA NEGATIVE (NEGATIVE); Color Urine UA YELLOW; Glucose Urine UA NEGATIVE (Negative); Ketones Urine UA NEGATIVE (NEGATIVE); Leukocyte Esterase Urine UA NEGATIVE (NEGATIVE); Nitrite Urine UA NEGATIVE (Negative); Occult Blood Urine UA NEGATIVE (Negative); Protein Urine UA NEGATIVE (Negative); Urobilinogen Urine UA 0.2 E.U./dL (0.2); pH Urine UA 5.5 (4.5-8.0)
[2024-01-25 12:04] LABS: Add Manual Diff / Slide Review NO; Basophils Absolute Auto 100 /uL (0-100); Basophils Percent Auto 1.2 % (0-2); Eosinophils Absolute Auto 100 /uL (0-450); Eosinophils Percent Auto 1.7 % (2-4); Hematocrit 39.6 % (41-53); Hemoglobin 13.4 g/dL (13.5-17.5); Lymphocytes Absolute Auto 1100 /uL (1100-4500); Lymphocytes Percent Auto 17.4 % (25-40); Mean Corpuscular HGB Conc 33.9 % (30-36); Mean Corpuscular Hemoglobin 29.6 PG (26-34); Mean Corpuscular Volume 87.3 fL (80-100); Monocytes Absolute Auto 700 /uL (0-900); Monocytes Percent Auto 10.9 % (3-14); Neutrophils Absolute Auto 4400 /uL (1500-7000); Neutrophils Percent Auto 68.8 % (50-75); Platelet Count 287 X10^3/uL (150-400); Red Blood Cell Count 4.53 X10^6/uL (4.5-5.9); Red Cell Distribution Width 13.5 % (11.6-14.8); White Blood Cell Count 6.4 X10^3/uL (4.5-11.0)
[2024-01-25 12:04] LABS: Bacteria Urine Occasional (0-1); Culture Indicated Urine Cult Not Indicated; RBC Urine 0-1/HPF (0-5/HPF); Squamous Epithelial Cell Urine 0-1 /HPF (0-5/HPF); Urine Volume 10mL (spun); WBC Urine 0-1/HPF (0-5/HPF)
[2024-01-25 12:29] LABS: Alanine Aminotransferase 24 IU/L (<50); Albumin 3.9 g/dL (3.5-5.0); Albumin Globulin Ratio 1.6 (1.0-2.8); Alkaline Phosphatase 84 U/L (38-126); Aspartate Aminotransferase 33 IU/L (17-59); BUN Creatinine Ratio 30.1 (6-22); Bilirubin Total 0.7 mg/dL (0.2-1.3); Blood Urea Nitrogen 22 mg/dL (9-20); Calcium 9.3 mg/dL (8.4-10.2); Carbon Dioxide 25 mmol/L (22-32); Chloride 93 mmol/L (98-107); Estimated Glomerular Filt Rate > 60 mL/min (>60); Globulin 2.5 g/dL (1.7-4.1); Glucose 78 mg/dL (80-110); HEMOLYSIS < 15 (0-50); Potassium 4.5 mmol/L (3.4-5.1); Sodium 125 mmol/L (137-145); Total Protein 6.4 g/dL (6.3-8.2)
== END ==
PROVIDERS: Family Provider Family Medicine; PCP Family Medicine; Referring Provider Family Medicine; Visit Provider Family Medicine
DX: R33.9 Retention of urine, unspecified (principal); N40.0 Benign prostatic hyperplasia without lower urinary tract symptoms; R53.1 Weakness; S14.3XXA Injury of brachial plexus, initial encounter; R26.89 Other abnormalities of gait and mobility
CPT/HCPCS: 36415; 80053; 81001; 85025

== ENCOUNTER → 2024-04-05 12:54 | Outpatient (CLI) | payer MEDICARE, OTHER, SELFPAY ==
--- NOTE | 2024-04-05 12:56 | DI.MRI.S_ITS ---
PROCEDURE: MR SHOULDER LT WO CON INDICATIONS: Left Shoulder Pain TECHNIQUE: Noncontrast oblique coronal T2 fast spin echo with fat saturation, oblique sagittal T1 spin echo and T2 fast spin echo with fat saturation, axial T1 spin echo and T2 fast spin echo with fat saturation through the shoulder. COMPARISON: [facility], CT, CT CHEST ABDOMEN PELVIS WITH CONTRAST, 03/13/2024, 13:56. FINDINGS: Image quality: Excellent. Bones: The marrow signal is slightly heterogenous in the proximal humerus. Additionally, the cortex around the humeral diaphysis is slightly thinned and irregular (8/12; 6/20). There is no acute fracture or dislocation. 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 There is a type 2 acromion. Glenohumeral joint: Mild osteoarthritis. There is no significant joint effusion. There is a 0.6 cm intra-articular body versus paralabral calcification at the axillary pouch (9/6; 7/16). Labrum: There is absence of the anterior labrum with a thickened middle glenohumeral ligament, likely representing a Ana complex, an anatomic labral variant. Cartilage: There is no significant articular cartilage defect. Subacromial-subdeltoid bursa: There is no significant amount of fluid in the subacromial-subdeltoid bursa. Rotator cuff: There is mild supraspinatus tendinosis with articular sided fraying along the myotendinous junction (8/11). There is mild infraspinatus tendinosis. There is mild subscapularis tendinosis. The teres minor tendon is intact. Long head of biceps tendon: The long head of the biceps tendon is present within the bicipital groove and intact. Musculature: There is mild central fatty atrophy of the rotator cuff musculature (9/) with corresponding feathery intramuscular edema, most conspicuous in the supraspinatus muscle (8/11; 10/1; 6/12). Mild intramuscular edema is also present within the acromial and clavicular heads of the deltoid musculature (10/14) Inferior glenohumeral ligaments/Axillary pouch: The axillary pouch is mildly thickened with low signal. Coracoclavicular and coracoacromial ligaments: The coracoclavicular and coracoacromial ligaments are normal. Other: Partial loss of the fat signal at the rotator interval. No compressive etiology in the suprascapular notch, spinoglenoid notch, or quadrilateral space. IMPRESSION: 1. Mild supraspinatus, infraspinatus, and subscapularis tendinosis. 2. Possible acute-subacute denervation change in the rotator cuff and deltoid musculature. The differential diagnosis would include a brachial plexopathy as well as [place]-Self syndrome. Consider neurology consultation for further evaluation. 3. Heterogenous appearance of the bone marrow, which is a nonspecific finding and can be seen with underlying obesity, anemia, chronic smoking, and hypoxemic-high oxygen demand states. 4. Mildly thinned appearance of the humeral diaphyseal cortex, which may be secondary to underlying disuse or global osteopenia. Consider a DEXA scan for evaluation of bone mineral density. 5. Findings suggestive of adhesive capsulitis. Dictated by: Gurjit Vazquez M.D. on 04/06/2024 at 11:01 Approved by: Gurjit Vazquez M.D. on 04/06/2024 at 11:24
== END ==
PROVIDERS: Family Provider Family Medicine; PCP Family Medicine; Referring Provider Family Medicine; Visit Provider Family Medicine
DX: M19.012 Primary osteoarthritis, left shoulder (principal); M25.512 Pain in left shoulder
CPT/HCPCS: 73221

== ENCOUNTER → 2024-04-25 13:22 | Outpatient (CLI) | payer MEDICARE, OTHER, SELFPAY ==
--- NOTE | 2024-04-25 13:26 | DI.RAD.S_ITS ---
PROCEDURE: XR DEXA AXIAL SKELETON INDICATIONS: Mildly thinned appearance of the humeral diaphyseal cortex COMPARISON: None. FINDINGS: Lumbar Spine: Bone mineral density 1.068 g/cm2, T score 0.2. Left Hip: Bone mineral density 0.935 g/cm2, T score -0.1. Left Femoral Neck: Bone mineral density 0.779 g/cm2, T score -0.6. Right Hip: Bone mineral density 0.942 g/cm2, T score 0. Right Femoral Neck: Bone mineral density 0.744 g/cm2, T score -0.9,. Fracture Risk Calculation (when applicable): 10-year fracture risk of a major osteoporotic fracture 5.6 percent and of a hip fracture 2.1 percent. (T score greater or equal to -1.0 to: NORMAL) (T score from -1.1 to -2.4: OSTEOPENIA) (T score less than or equal to -2.5: OSTEOPOROSIS) IMPRESSION: Normal bone mineral density. Follow-up guidelines as follows: Osteoporosis: Consider a repeat DEXA and Vertebral Fracture Assessment (VFA) exam in 2 years or sooner if medically necessary, to reassess this patient's status. Osteopenia: Consider a repeat DEXA in 2-3 years to reassess this patient's status, or if there is a new clinical indication. Normal: Consider a repeat DEXA in 5 years or sooner, or if there is a new clinical indication. All treatment decisions require clinical judgment and consideration of individual patient factors, including patient preferences, comorbidities, previous drug use, risk factors not captured in the FRAX model (e.g., frailty, falls, vitamin D deficiency, increased bone turnover, interval significant decline in bone density ) and possible under- or over-estimation of fracture risk by FRAX. In addition, the NOF Guide recommends that FDA-approved medical therapies be considered in postmenopausal women and men age >= 50 years with a: * Hip or vertebral (clinical or morphometric) fracture * T-score of <=-2.5 at the spine or hip * Ten-year fracture probability by FRAX of >= 3% for hip fracture or >=20% for major osteoporotic fracture. People with diagnosed cases of osteoporosis or at high risk for fracture should have regular bone mineral density tests. For patients eligible for Medicare, routine testing is allowed once every 2 years. The testing frequency can be increased to one year for patients who have rapidly progressing disease, those who are receiving or discontinuing medical therapy to restore bone mass, or have additional risk factors. Dictated by: Laksmhi Mai M.D. on 04/25/2024 at 20:09 Approved by: Lakshmi Mai M.D. on 04/25/2024 at 20:10
== END ==
PROVIDERS: Family Provider Family Medicine; PCP Family Medicine; Referring Provider Family Medicine; Visit Provider Family Medicine
DX: M85.89 Other specified disorders of bone density and structure, multiple sites (principal)
CPT/HCPCS: 77080

== ENCOUNTER → 2024-04-27 08:49 | Outpatient (CLI) | payer MEDICARE, OTHER, SELFPAY ==
[2024-04-27 09:47] LABS: Hematocrit 42.3 % (41-53); Hemoglobin 14.2 g/dL (13.5-17.5); Mean Corpuscular HGB Conc 33.6 % (30-36); Mean Corpuscular Hemoglobin 29.9 PG (26-34); Mean Corpuscular Volume 88.9 fL (80-100); Platelet Count 195 X10^3/uL (150-400); Red Blood Cell Count 4.76 X10^6/uL (4.5-5.9); White Blood Cell Count 4.1 X10^3/uL (4.5-11.0)
[2024-04-27 10:20] LABS: BUN Creatinine Ratio 21.9 (6-22); Blood Urea Nitrogen 16 mg/dL (9-20); Calcium 9.2 mg/dL (8.4-10.2); Carbon Dioxide 26 mmol/L (22-32); Chloride 98 mmol/L (98-107); Cholesterol 129 mg/dL (140-199); Estimated Glomerular Filt Rate > 60 mL/min (>60); Glucose 82 mg/dL (80-110); HDL Cholesterol 43 mg/dL (40-60); HEMOLYSIS < 15 (0-50); LDL Cholesterol Calculated 71 mg/dL (<100); Potassium 4.1 mmol/L (3.4-5.1); Sodium 129 mmol/L (137-145); Triglycerides 77 mg/dL (35-150)
== END ==
PROVIDERS: Family Provider Family Medicine; PCP Family Medicine; Referring Provider Internal Medicine Cardiovascular Disease; Visit Provider Internal Medicine Cardiovascular Disease
DX: I10 Essential (primary) hypertension (principal)
CPT/HCPCS: 36415; 80048; 80061; 85027

== ENCOUNTER → 2024-06-14 10:23 | Outpatient (CLI) | payer MEDICARE, OTHER, SELFPAY ==
[2024-06-14 10:55] LABS: Hematocrit 43.1 % (41-53)
[2024-06-14 11:05] LABS: BUN Creatinine Ratio 30.5 (6-22); Blood Urea Nitrogen 25 mg/dL (9-20); Calcium 9.6 mg/dL (8.4-10.2); Carbon Dioxide 26 mmol/L (22-32); Chloride 99 mmol/L (98-107); Estimated Glomerular Filt Rate > 60 mL/min (>60); Glucose 89 mg/dL (80-110); HEMOLYSIS < 15 (0-50); Potassium 3.8 mmol/L (3.4-5.1); Sodium 133 mmol/L (137-145)
[2024-06-14 11:42] LABS: Creatinine Urine Random 123.87 mg/dL; Protein (Total) Urine Random 11 mg/dL (0-12); Protein Creatinine Ratio Urine 0.08 GRAM/24H
== END ==
PROVIDERS: Family Provider Family Medicine; PCP Family Medicine; Referring Provider Student in an Organized Health Care Education/Training Program; Visit Provider Student in an Organized Health Care Education/Training Program
DX: D64.9 Anemia, unspecified (principal); N05.9 Unspecified nephritic syndrome with unspecified morphologic changes; R80.9 Proteinuria, unspecified
CPT/HCPCS: 36415; 80048; 82570; 84156; 85014; 85018

== ENCOUNTER 2024-09-18 09:22 | Emergency (ER) | payer MEDICARE, OTHER, SELFPAY ==
[2024-09-18] VITALS (8 sets, daily range): BP systolic 141–165; BP diastolic 61–108; PULSE 90–103; RESP 14–19; TEMP 37.1; O2SAT 96–99
--- NOTE | 2024-09-18 09:32 | EKG_ITS ---
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
[2024-09-18 09:57] LABS: Add Manual Diff / Slide Review NO; Basophils Absolute Auto 100 /uL (0-100); Basophils Percent Auto 0.7 % (0-2); Eosinophils Absolute Auto 100 /uL (0-450); Eosinophils Percent Auto 1.5 % (2-4); Hematocrit 42.1 % (41-53); Hemoglobin 14.3 g/dL (13.5-17.5); Lymphocytes Absolute Auto 1900 /uL (1100-4500); Lymphocytes Percent Auto 20.2 % (25-40); Mean Corpuscular Hemoglobin 29.5 PG (26-34); Monocytes Absolute Auto 800 /uL (0-900); Monocytes Percent Auto 8.8 % (3-14); Neutrophils Absolute Auto 6400 /uL (1500-7000); Neutrophils Percent Auto 68.8 % (50-75); Platelet Count 169 X10^3/uL (150-400); Red Blood Cell Count 4.84 X10^6/uL (4.5-5.9); Red Cell Distribution Width 14.1 % (11.6-14.8); White Blood Cell Count 9.4 X10^3/uL (4.5-11.0)
[2024-09-18 10:03] LABS: Alanine Aminotransferase 21 IU/L (<50); Albumin 4.5 g/dL (3.5-5.0); Albumin Globulin Ratio 1.7 (1.0-2.8); Alkaline Phosphatase 82 U/L (38-126); Aspartate Aminotransferase 36 IU/L (17-59); BUN Creatinine Ratio 33.8 (6-22); Bilirubin Total 1.5 mg/dL (0.2-1.3); Blood Urea Nitrogen 26 mg/dL (9-20); Calcium 9.3 mg/dL (8.4-10.2); Carbon Dioxide 24 mmol/L (22-32); Chloride 102 mmol/L (98-107); Estimated Glomerular Filt Rate > 60 mL/min (>60); Globulin 2.6 g/dL (1.7-4.1); Glucose 89 mg/dL (70-99); HEMOLYSIS < 15 (0-50); Lipase 51 U/L (23-300); Potassium 4.2 mmol/L (3.4-5.1); Sodium 134 mmol/L (137-145); Total Protein 7.1 g/dL (6.3-8.2)
[2024-09-18 10:15] LABS: Ictotest Urine Negative (Negative)
--- NOTE | 2024-09-18 10:15 | ED_ITS ---
HPI - Abdominal Pain General Chief Complaint: Abdominal Pain Stated Complaint: Lower left Abdominal Pain last night Time Seen by Provider: 09/18/24 09:50 Source: patient Mode of arrival: Ambulatory History of Present Illness HPI narrative: Patient is a 83-year-old male history of atrial fibrillation on Pradaxa hypothyroid hypertension presenting today with left lower quadrant pain. Reports that he had a normal day yesterday however around dinnertime he started noticing increased pain. He was able to eat dinner. But he did take some Tylenol last night and 1 tablet this morning. No nausea or vomiting. No significant change in bowel habits no bloody stool. Denies any fever or chills. It does hurt to move his leg in his lower abdomen. He denies any kind of flank pain. No chest pain shortness of breath or other symptoms. Related Data Home Medications Medication Instructions Recorded Confirmed dabigatran etexilate 150 mg 150 mg PO BID 10/23/21 03/03/24 capsule (Pradaxa) acetaminophen 325 mg capsule 650 mg PO Q4H PRN Pain (Scale 04/29/22 03/03/24 (Tylenol) Score 4-6) budesonide 9 mg capsule,extended 9 mg PO DAILY 03/03/24 03/03/24 release tamsulosin 0.4 mg capsule (Flomax) 0.4 mg PO DAILY 03/03/24 03/03/24 Previous Rx's Medication Instructions Recorded Parking Permit... #1 ea 07/02/22 rosuvastatin 5 mg tablet 5 mg PO DAILY #90 tabs 11/30/22 atenolol 25 mg tablet 25 mg PO DAILY #90 tabs 12/23/23 gabapentin 300 mg capsule 300 mg PO BEDTIME #90 caps 01/25/24 tamsulosin 0.4 mg capsule 0.4 mg PO DAILY #90 caps 01/25/24 levothyroxine 125 mcg tablet 125 mcg PO DAILY #90 tabs 03/16/24 lorazepam 1 mg tablet (Ativan) 1 mg PO ONCE #1 tab 03/23/24 lisinopril 10 mg tablet 10 mg PO DAILY #90 tabs 05/15/24 trazodone 50 mg tablet 50 mg PO BEDTIME PRN Insomnia #90 08/01/24 tabs pantoprazole 40 mg tablet,delayed 40 mg PO DAILY #90 tabs 08/14/24 release amoxicillin 875 mg-potassium 1 tab PO BID #20 tabs 09/18/24 clavulanate 125 mg tablet Allergies Allergy/AdvReac Type Severity Reaction Status Date / Time No Known Drug Allergies Allergy Verified 03/03/24 09:01 Patient History Medical History Secondhand smoke exposure Prostate troubles History of urinary retention BPH with obstruction/lower urinary tract symptoms Shingles (~1993) Mumps (~1944) Measles (~1944) Chicken pox (~194) Skin cancer (~2004) Metastatic melanoma Hyperlipidemia Hypertension Surgical History Anesthesia Status post Mohs surgery History of appendectomy Family History Father Kidney failure Family/Other Substance abuse Social History marital status: number of children: 3 occupational status: previously employed 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 HEENT: Head atraumatic,EOMI, pupils reactive, face symmetric, moist mucous membranes CARDIOVASCULAR: Regular rate and rhythm without murmurs, rubs or gallops. RESPIRATORY: Breath sounds equal bilaterally, no wheezes rales or rhonchi. ABDOMEN: Soft, significant tenderness left lower quadrant with guarding otherwise nondistended : No CVA tenderness EXTREMITIES: Normal range of motion, no clubbing or edema. Neurovascularly intact NEUROLOGICAL: Alert and oriented x4.Normal gait and speech. Cranial nerves II through XII grossly intact. SKIN: Warm, dry, no laceration, no petechiae, no rashes or lesions. Course Orders Ordered: ED Orders 09/18/24 10:00 Ictotest Urine Stat Urine Culture Stat Urine Microscopic Stat 09/18/24 10:22 CT abdomen pelvis w con Stat Discontinued Medications Amoxicillin/Clavulanate Potassium (Amoxicillin/Clav 875/125 Mg) 1 tab PO NOW ONE Stop: 09/18/24 11:46 Last Admin: 09/18/24 12:05 Dose: 1 tab Documented By: Acetaminophen (Ofirmev) 1,000 mg in 100 mls @ 400 mls/hr IV NOW ONE Stop: 09/18/24 10:36 Last Infusion: 09/18/24 11:32 Dose: Infused Documented By: Admin: 09/18/24 10:59 Dose: 400 mls/hr Documented By: Vital Signs Vital signs: Vital Signs - 8 hr 09/18/24 11:00 09/18/24 11:00 09/18/24 11:30 Pulse Rate 90 Respiratory Rate 15 Blood Pressure 161/68 H 143/68 H Pulse Oximetry 99 09/18/24 11:30 09/18/24 12:00 09/18/24 12:00 Pulse Rate 91 H 93 H Respiratory Rate 19 19 Blood Pressure 141/61 H Pulse Oximetry 98 99 MDM - Abdominal Pain Lab Data 09/18/24 09:35 09/18/24 09:35 Labs: Lab Results 09/18/24 09/18/24 Range/Units 09:35 10:00 WBC 9.4 (4.5-11.0) X10^3/uL RBC 4.84 (4.5-5.9) X10^6/uL Hgb 14.3 (13.5-17.5) g/dL Hct 42.1 (41-53) % MCV 87.0 (80-100) fL MCH 29.5 (26-34) PG MCHC 34.0 (30-36) % RDW 14.1 (11.6-14.8) % Plt Count 169 (150-400) X10^3/uL Neut % (Auto) 68.8 (50-75) % Lymph % (Auto) 20.2 L (25-40) % [place] % (Auto) 8.8 (3-14) % Eos % (Auto) 1.5 L (2-4) % Baso % (Auto) 0.7 (0-2) % Neut # (Auto) 6400 (8619-1483) /uL Lymph # (Auto) 1900 (7759-8987) /uL [place] # (Auto) 800 (0-900) /uL Eos # (Auto) 100 (0-450) /uL Baso # (Auto) 100 (0-100) /uL Sodium 134 L (137-145) mmol/L Potassium 4.2 (3.4-5.1) mmol/L Chloride 102 (98-107) mmol/L Carbon Dioxide 24 (22-32) mmol/L BUN 26 H (9-20) mg/dL Creatinine 0.77 (0.66-1.25) mg/dL Estimated GFR > 60 (>60) mL/min BUN/Creatinine Ratio 33.8 H (6-22) Glucose 89 (70-99) mg/dL Calcium 9.3 (8.4-10.2) mg/dL Total Bilirubin 1.5 H (0.2-1.3) mg/dL AST 36 (17-59) IU/L ALT 21 (<50) IU/L Alkaline Phosphatase 82 (38-126) U/L Total Protein 7.1 (6.3-8.2) g/dL Albumin 4.5 (3.5-5.0) g/dL Globulin 2.6 (1.7-4.1) g/dL Albumin/Globulin Ratio 1.7 (1.0-2.8) Lipase 51 (23-300) U/L Ur Bilirubin Confirm Negative (Negative) Urine RBC None seen (0-5/HPF) Urine WBC None seen (0-5/HPF) Ur Squamous Epith Cells None seen (0-5/HPF) Urine Bacteria None seen (None) Vol Urine Centrifuged 10ml (spun) Point of care testing: Urine Dip Bedside Urine Glucose Negative Bedside Urine Bilirubin + 1 Bedside Urine Ketone - Negative Urine Specific [place] 1.025 Bedside Urine Occult Blood - Negative Bedside Urine pH 5.5 Bedside Urine Protein +/- 15 Bedside Urine Urobilinogen - Negative Bedside Urine Nitrite - Negative Bedside Urine Leukocytes - Negative Esterase Imaging Data CT scan - abdomen/pelvis: Radiologist's Impression: PROCEDURE: CT ABDOMEN PELVIS W CON INDICATIONS: LLQ pain TECHNIQUE: After the administration of intravenous contrast, axial sections acquired from the lung bases to the pubic symphysis. Coronal and sagittal reformats were performed. For radiation dose reduction, the following was used: automated exposure control, adjustment of mA and/or kV according to patient size. COMPARISON: [facility], [place], PET WHOLE BODY MELANOMA, 12/16/2022, 10:59. [facility], CT, CT CHEST ABDOMEN PELVIS WITH CONTRAST, 09/08/2023, 13:46. [facility], CT, CT CHEST ABDOMEN PELVIS WITH CONTRAST, 03/13/2024, 13:56. FINDINGS: Image quality: Diagnostic. Lower Chest: Four-chamber cardiomegaly. There is thinning of the apex of the left ventricle. The right ventricle and bilateral atria are definitely enlarged. ABDOMEN: Liver: No solid mass. Gallbladder: Absent Biliary ducts: No biliary dilation. Pancreas: No ductal dilation. Spleen: Size is within normal limits. Multiple splenic hypodensities are similar to 09/08/2023 exam, but much more prominent than on the most recent prior study. When they were minimally present but significantly improved. The Adrenal Glands: No adrenal nodules. Kidneys and Ureters: No hydronephrosis. No solid mass. No complex renal cystic lesion which requires follow up. Stomach and Bowel: Acute diverticulitis present involving the proximal sigmoid, just distal to the descending colon. There is extensive inflammatory change in the adjacent fat. No free air or free fluid or abscess cavity noted. Peritoneum: No abnormal intraperitoneal fluid. No free air. Ventral Wall: No significant ventral hernia. Abdominal Nodes: No retroperitoneal or mesenteric adenopathy by size criteria. Vessels: Aorta and inferior vena cava are normal in size. PELVIS: Pelvic Organs: Unremarkable. Bladder: No bladder wall thickening, accounting for underdistention. Pelvic Nodes: No enlarged lymph nodes. Miscellaneous: No inguinal hernias are seen. Bones: No aggressive osseous abnormality. IMPRESSION: 1. Acute sigmoid diverticulitis. 2. Redemonstration of splenic lesions, previously significantly improved on the most recent prior study. 3. Cardiomegaly. Dictated by: Margarito Noble M.D. on 09/18/2024 at 10:55 Approved by: Margarito Noble M.D. on 09/18/2024 at 11:11 ECG Data Attestation: I personally reviewed and interpreted this ECG as follows: Prior ECG tracings: available for review Interpretation: Atrial fibrillation rate 105 no ischemia similar to prior EKGs MDM Narrative Medical decision making narrative: Patient 83-year-old male history of atrial fibrillation on Pradaxa presenting today with left lower quadrant pain which started last night. He was quite tender on exam with some mild guarding no significant distention Blood work has been reviewed He has no leukocytosis no anemia CMP does not show any significant electrolyte abnormalities no LITO Bilirubin slightly elevated 1.5 AST ALT within normal limits CT confirms an uncomplicated diverticularitis At this time patient has uncomplicated diverticulitis without leukocytosis got IV Tylenol here for pain. Along with 1st dose of Augmentin. At this time supportive care and outpatient follow-up. Differential diagnosis diverticulitis nephrolithiasis ischemic bowel Discharge Plan Departure Patient Disposition: Home Clinical Impression: Diverticulitis Instructions: DI for Diverticulitis Activity Restrictions/Additional Instructions: *You have been diagnosed with diverticulitis *What to do: At this time recommend a clear liquid diet, may increase food as tolerated May require outpatient colonoscopy for follow up *Continue to take medications as directed Augmentin 875 twice a day for 10 days Tylenol 1000 mg every 6 hours if needed for [id number] pain, next dose at 4:00 p.m. *Follow up with your primary care provider in 2-3 days or call [phone] *Return to ER if you should have increasing pain bloody stool fever [or] any new, worsening or concerning symptoms Prescriptions: New amoxicillin-pot clavulanate 875-125 mg tablet 1 tab PO BID Qty: 20 0RF No Action (DME) Parking Permit... See Rx Instructions .ROUTE .MEDSUPPLY Qty: 1 0RF Rx Instructions: I find this patient to be medically disabled and qualified for Disabled Parking as indicated , and signed, on the Accompanying Disabled Parking Application for Individuals. atenolol 25 mg tablet 25 mg PO DAILY Qty: 90 3RF levothyroxine 125 mcg tablet 125 mcg PO DAILY Qty: 90 1RF lorazepam [Ativan] 1 mg tablet 1 mg PO ONCE Qty: 1 0RF Rx Instructions: Take 1 pill by mouth 1 hour prior to procedure. lisinopril 10 mg tablet 10 mg PO DAILY Qty: 90 1RF trazodone 50 mg tablet 50 mg PO BEDTIME PRN (Reason: Insomnia) Qty: 90 0RF pantoprazole 40 mg tablet,delayed release (DR/EC) 40 mg PO DAILY Qty: 90 1RF Rx Instructions: Take one tab by mouth daily Pradaxa 150 mg capsule 150 mg PO BID rosuvastatin 5 mg tablet 5 mg PO DAILY Qty: 90 1RF gabapentin 300 mg capsule 300 mg PO BEDTIME Qty: 90 0RF tamsulosin 0.4 mg capsule 0.4 mg PO DAILY Qty: 90 0RF acetaminophen [Tylenol] 325 mg Capsule 650 mg PO Q4H PRN (Reason: Pain (Scale Score 4-6)) budesonide 9 mg capsule, extended release 9 mg PO DAILY tamsulosin [Flomax] 0.4 mg capsule 0.4 mg PO DAILY Referrals: Scottie Rosenberg MD [Primary Care Provider] - Stand Alone Forms: Patient Portal/API/Survey
[2024-09-18 10:17] LABS: Urine Volume 10mL (spun)
[2024-09-18 10:19] LABS: Bacteria Urine None Seen; RBC Urine None Seen (0-5/HPF); Squamous Epithelial Cell Urine None Seen (0-5/HPF); WBC Urine None Seen (0-5/HPF)
--- NOTE | 2024-09-18 10:22 | DI.CT.S_ITS ---
PROCEDURE: CT ABDOMEN PELVIS W CON INDICATIONS: LLQ pain TECHNIQUE: After the administration of intravenous contrast, axial sections acquired from the lung bases to the pubic symphysis. Coronal and sagittal reformats were performed. For radiation dose reduction, the following was used: automated exposure control, adjustment of mA and/or kV according to patient size. COMPARISON: [facility], [place], PET WHOLE BODY MELANOMA, 12/16/2022, 10:59. [facility], CT, CT CHEST ABDOMEN PELVIS WITH CONTRAST, 09/08/2023, 13:46. [facility], CT, CT CHEST ABDOMEN PELVIS WITH CONTRAST, 03/13/2024, 13:56. FINDINGS: Image quality: Diagnostic. Lower Chest: Four-chamber cardiomegaly. There is thinning of the apex of the left ventricle. The right ventricle and bilateral atria are definitely enlarged. ABDOMEN: Liver: No solid mass. Gallbladder: Absent Biliary ducts: No biliary dilation. Pancreas: No ductal dilation. Spleen: Size is within normal limits. Multiple splenic hypodensities are similar to 09/08/2023 exam, but much more prominent than on the most recent prior study. When they were minimally present but significantly improved. The Adrenal Glands: No adrenal nodules. Kidneys and Ureters: No hydronephrosis. No solid mass. No complex renal cystic lesion which requires follow up. Stomach and Bowel: Acute diverticulitis present involving the proximal sigmoid, just distal to the descending colon. There is extensive inflammatory change in the adjacent fat. No free air or free fluid or abscess cavity noted. Peritoneum: No abnormal intraperitoneal fluid. No free air. Ventral Wall: No significant ventral hernia. Abdominal Nodes: No retroperitoneal or mesenteric adenopathy by size criteria. Vessels: Aorta and inferior vena cava are normal in size. PELVIS: Pelvic Organs: Unremarkable. Bladder: No bladder wall thickening, accounting for underdistention. Pelvic Nodes: No enlarged lymph nodes. Miscellaneous: No inguinal hernias are seen. Bones: No aggressive osseous abnormality. IMPRESSION: 1. Acute sigmoid diverticulitis. 2. Redemonstration of splenic lesions, previously significantly improved on the most recent prior study. 3. Cardiomegaly. Dictated by: Margarito Noble M.D. on 09/18/2024 at 10:55 Approved by: Margarito Noble M.D. on 09/18/2024 at 11:11
[2024-09-18] MEDS: ACETAMINOPHEN IV 1,000 MG/100 ML VIAL 400 MG IV (10:59)
[2024-09-18] MEDS: AMOXICILLIN/CLAV 875/125 MG 1 TAB PO (12:05)
== END 2024-09-18 12:24 | disposition home or self-care (01) ==
PROVIDERS: Emergency Provider Emergency Medicine; Family Provider Family Medicine; PCP Family Medicine
DX: K57.92 Diverticulitis of intestine, part unspecified, without perforation or abscess without bleeding (principal)
CPT/HCPCS: 74177; 80053; 81003; 81015; 83690; 85025; 87086; 93005; 93010; 99284; J0131; Q9967

== ENCOUNTER → 2024-12-09 10:35 | Outpatient (CLI) | payer MEDICARE, OTHER, SELFPAY ==
[2024-12-09 11:21] LABS: Influenza A - CEPHEID Flu A NEGATIVE (NEGATIVE); Influenza B - CEPHEID Flu B NEGATIVE (NEGATIVE)
[2024-12-09 11:40] LABS: COVID-19 CEPHEID 4-PLEX PCR POSITIVE (Negative)
== END ==
LOC: LAB 10:35
PROVIDERS: Family Provider Family Medicine; PCP Family Medicine; Visit Provider Registered Nurse
DX: R05.1 Acute cough (principal)
CPT/HCPCS: 87637

== ENCOUNTER 2025-02-28 18:22 | Emergency (ER) | payer MEDICARE, OTHER, SELFPAY ==
[2025-02-28] VITALS (12 sets, daily range): BP systolic 103–146; BP diastolic 58–70; PULSE 89–100; RESP 16–37; TEMP 37.4; O2SAT 96–99; BMI 20.7
--- NOTE | 2025-02-28 18:36 | DI.RAD.S_ITS ---
PROCEDURE: XR CHEST 1V INDICATIONS: Chest Pain TECHNIQUE: One view of the chest was acquired. COMPARISON: [facility], [place], XR CHEST 1V, 08/29/2023, 19:23. FINDINGS: Surgical changes and devices: None. Lungs and pleura: Lungs are clear. No pleural effusions or pneumothorax. Mediastinum: Mediastinal contours appear normal. Heart size is normal. Aortic atherosclerotic calcifications. Bones and chest wall: No suspicious bony lesions. Overlying soft tissues appear unremarkable. IMPRESSION: No acute cardiopulmonary abnormality is seen. Dictated by: Sebas Kaplan M.D. on 02/28/2025 at 19:24 Approved by: Sebas Kaplan M.D. on 02/28/2025 at 19:24
--- NOTE | 2025-02-28 18:41 | EKG_ITS ---
[address] [address] Test Date: 2025-02-28 Pat Name: Deion Mello Department: [facility] Room: Gender: Male [employer] Feeder: : [id number] Requested By: Order Number: [id number] Reading MD: Brock Vieira MD Measurements Intervals [place] Rate: 95 P: [place]: QRS: -10 QRSD: 88 T: 36 QT: 368 QTc: 462 Interpretive Statements Atrial fibrillation Electronically Signed On 03-01-2025 7:20:54 PDT by Brock Vieira MD
[2025-02-28 18:49] LABS: INR 1.2 (0.9-1.3); Prothrombin Time 13.9 SECONDS (9.4-12.5)
[2025-02-28 18:52] LABS: PTT Partial Thromboplastin Tim 62 SECONDS (25.1-36.5)
[2025-02-28 18:54] LABS: Alanine Aminotransferase 16 IU/L (<50); Albumin 4.4 g/dL (3.5-5.0); Albumin Globulin Ratio 1.7 (1.0-2.8); Alkaline Phosphatase 83 U/L (38-126); Blood Urea Nitrogen 23 mg/dL (9-20); Calcium 9.3 mg/dL (8.4-10.2); Carbon Dioxide 25 mmol/L (22-32); Chloride 99 mmol/L (98-107); Creatine Kinase 42 U/L (55-170); Estimated Glomerular Filt Rate > 60 mL/min (>60); Globulin 2.6 g/dL (1.7-4.1); Glucose 98 mg/dL (70-99); HEMOLYSIS 17 (0-50); Lipase 57 U/L (23-300); Magnesium 1.7 mg/dL (1.6-2.3); Potassium 4.1 mmol/L (3.4-5.1); Sodium 132 mmol/L (137-145); Total Protein 7.0 g/dL (6.3-8.2)
[2025-02-28 19:01] LABS: Add Manual Diff / Slide Review NO; Hematocrit 39.4 % (41-53); Hemoglobin 13.4 g/dL (13.5-17.5); Lymphocytes Absolute Auto 1400 /uL (1100-4500); Mean Corpuscular HGB Conc 34.0 % (30-36); Mean Corpuscular Hemoglobin 29.6 PG (26-34); Mean Corpuscular Volume 87.2 fL (80-100); Platelet Count 158 X10^3/uL (150-400)
[2025-02-28 19:05] LABS: NT-proBNP (BNP-Adult 18+) 2200 pg/mL (<450); Troponin I < 0.012 ng/mL (0.01-0.034)
[2025-02-28 19:17] LABS: Influenza A - CEPHEID Flu A NEGATIVE (NEGATIVE); Influenza B - CEPHEID Flu B NEGATIVE (NEGATIVE)
--- NOTE | 2025-02-28 19:24 | PC.NURSE ---
Pt awake and alert sitting in ED stretcher speaking with friend at bedside. Pt engages appropriately with RN. No distress noted at this time. States no change in symptoms since arrival but feels reassured being here. Pt remains connected to cardiac, resp, pulse ox, and blood pressure monitors with alarms on and audible. Call light within reach. Continued plan of care discussed and pt in agreement. No further requests or complaints at this time.
[2025-02-28 19:31] LABS: COVID-19 CEPHEID 4-PLEX PCR Negative (Negative)
[2025-02-28 21:14] LABS: Troponin I < 0.012 ng/mL (0.01-0.034)
--- NOTE | 2025-02-28 21:14 | ED.CHESTPAIN ---
HPI - Chest Pain General Chief Complaint: Chest Pain Stated Complaint: CP x3days Time Seen by Provider: 02/28/25 21:14 Source: patient, RN notes reviewed and old records reviewed Mode of arrival: Ambulatory Limitations: no limitations History of Present Illness HPI narrative: 84-year-old male history of atrial fibrillation on Pradaxa, hypothyroidism, hypertension, dyslipidemia presents with complaint of 3 days if persistent left-sided chest discomfort. Patient states no recent trauma or injuries that he recalls he notes it is worse with palpation, movement and deep inhalation. He denies any fevers, no new cold cough or congestion. He has not had similar symptoms in the past. He states no shortness of breath. No fevers or chills. No nausea or vomiting. No diaphoresis. He has not appreciate any rash or skin changes. He notes he has chronic diarrhea but has not had any new changes with this. He denies any new swelling in extremities. Patient states he has not tried anything for pain at home. He has had a prior cholecystectomy, no prior cardiac interventions no prior stents. No tobacco, alcohol or recreational drugs. Dr. Rosenberg is his primary care physician. Dr. Loya as his artist mannequin coloring. Related Data Home Medications ?Medication ?Instructions ?Recorded ?Confirmed dabigatran etexilate 150 mg 150 mg PO BID 10/23/21 12/09/24 capsule (Pradaxa) Previous Rx's ?Medication ?Instructions ?Recorded Parking Permit... #1 ea 07/02/22 rosuvastatin 5 mg tablet 5 mg PO DAILY #90 tabs 11/30/22 atenolol 25 mg tablet 25 mg PO DAILY #90 tabs 12/23/23 lisinopril 10 mg tablet 10 mg PO DAILY #90 tabs 11/10/24 levothyroxine 125 mcg tablet 125 mcg PO DAILY #90 tabs 12/26/24 trazodone 50 mg tablet 50 mg PO BEDTIME PRN Insomnia #90 01/22/25 tabs pantoprazole 40 mg tablet,delayed 40 mg PO DAILY #90 tabs 02/21/25 release Allergies Allergy/AdvReac Type Severity Reaction Status Date / Time No Known Drug Allergies Allergy Verified 12/09/24 10:39 Review of Systems Review of Systems ROS Unobtainable: All systems reviewed & are unremarkable except as noted in HPI and below Patient History Medical History Secondhand smoke exposure Prostate troubles History of urinary retention BPH with obstruction/lower urinary tract symptoms Shingles (~1993) Mumps (~1944) Measles (~1944) Chicken pox (~1944) Skin cancer (~2004) Metastatic melanoma Hyperlipidemia Hypertension Surgical History Anesthesia Status post Mohs surgery History of appendectomy Family History Father Kidney failure Family/Other Substance abuse Social History marital status: number of children: 3 occupational status: previously employed 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 Patient has a reproducible chest pain in the left substernal border and over the left chest at ribs 4 5 and 6. No single spot of point tenderness. No warmth erythema or other skin changes no vesicles or blisters or appreciated. Patient has a normal range of motion but does note he has discomfort with movement. No JVD. No edema bilateral lower extremities. RESPIRATORY: Breath sounds equal bilaterally, no wheezes rales or rhonchi. Speaks in full sentences. ABDOMEN: Soft, nontender. Normoactive bowel sounds all 4 quadrants. No guarding or rebound, rigidity, no mass : No CVA tenderness EXTREMITIES: Normal range of motion, no clubbing or edema. Neurovascularly intact NEUROLOGICAL: Cranial nerves II through XII grossly intact. Moving all extremities SKIN: Warm, dry, no petechiae, no rashes or lesions. Initial Vital Signs Initial Vital Signs: Vital Signs Pulse Rate 96 H 02/28/25 18:29 Respiratory Rate 25 H 02/28/25 18:29 Pulse Oximetry 99 02/28/25 18:29 Course Orders Ordered: ED Orders 02/28/25 18:29 Complete Blood Count AUTO DIFF Stat Comprehensive Metabolic Panel Stat Lipase Stat Magnesium Stat NT-proBNP (BNP-Adult 18+) Stat PTT Partial Thromboplastin Jayce Stat Prothrombin Time INR Stat Troponin & CK Cardiac Panel Stat 02/28/25 18:30 Covid-19 + FLU A/B + RSV - PCR Stat 02/28/25 18:36 XR chest 1V Stat EKG-12 Lead Stat 02/28/25 20:40 Trop I [Troponin I] Stat Discontinued Medications Acetaminophen (Acetaminophen 325 Mg Tablet) 975 mg PO NOW ONE Stop: 02/28/25 21:52 Last Admin: 02/28/25 21:54 Dose: 975 mg Documented By: LS Vital Signs Vital signs: Vital Signs - 8 hr 02/28/25 18:29 02/28/25 18:30 02/28/25 18:33 Temperature 99.4 F Pulse Rate 96 H 92 H 99 H Respiratory Rate 25 H 37 H 16 Blood Pressure 146/70 H Pulse Oximetry 99 99 99 Oxygen Delivery Method Room Air 02/28/25 19:00 02/28/25 19:21 02/28/25 19:21 Temperature Pulse Rate 90 95 H Respiratory Rate 20 27 H Blood Pressure 131/63 Pulse Oximetry 98 98 Oxygen Delivery Method Room Air Room Air 02/28/25 19:30 02/28/25 19:30 02/28/25 20:00 Temperature Pulse Rate 91 H 89 Respiratory Rate 25 H 27 H Blood Pressure 130/60 Pulse Oximetry 97 97 Oxygen Delivery Method Room Air Room Air 02/28/25 20:00 02/28/25 20:30 02/28/25 20:30 Temperature Pulse Rate 89 Respiratory Rate 19 Blood Pressure 134/66 129/60 Pulse Oximetry 97 Oxygen Delivery Method Room Air 02/28/25 21:00 02/28/25 21:01 02/28/25 21:01 Temperature Pulse Rate 96 H 95 H Respiratory Rate 23 20 Blood Pressure 146/68 H Pulse Oximetry 98 98 Oxygen Delivery Method Room Air Room Air 02/28/25 21:30 02/28/25 21:31 02/28/25 21:31 Temperature Pulse Rate 100 H 100 H Respiratory Rate 33 H 23 Blood Pressure 103/58 L Pulse Oximetry 97 96 Oxygen Delivery Method Room Air Room Air MDM - Chest Pain Lab Data 02/28/25 18:29 02/28/25 18:29 Labs: Lab Results 02/28/25 02/28/25 02/28/25 Range/Units 18:29 18:30 20:40 WBC 5.1 (4.5-11.0) X10^3/uL RBC 4.52 (4.5-5.9) X10^6/uL Hgb 13.4 L (13.5-17.5) g/dL Hct 39.4 L (41-53) % MCV 87.2 (80-100) fL MCH 29.6 (26-34) PG MCHC 34.0 (30-36) % RDW 13.4 (11.6-14.8) % Plt Count 158 (150-400) X10^3/uL Neut % (Auto) 56.8 (50-75) % Lymph % (Auto) 27.0 (25-40) % [place] % (Auto) 13.8 (3-14) % Eos % (Auto) 2.1 (2-4) % Baso % (Auto) 0.3 (0-2) % Neut # (Auto) 2900 (8616-8956) /uL Lymph # (Auto) 1400 (3947-0364) /uL [place] # (Auto) 700 (0-900) /uL Eos # (Auto) 100 (0-450) /uL Baso # (Auto) 0 (0-100) /uL PT 13.9 H (9.4-12.5) SECONDS INR 1.2 (0.9-1.3) APTT 62 H (25.1-36.5) SECONDS Sodium 132 L (137-145) mmol/L Potassium 4.1 (3.4-5.1) mmol/L Chloride 99 (98-107) mmol/L Carbon Dioxide 25 (22-32) mmol/L BUN 23 H (9-20) mg/dL Creatinine 0.74 (0.66-1.25) mg/dL Estimated GFR > 60 (>60) mL/min BUN/Creatinine Ratio 31.1 H (6-22) Glucose 98 (70-99) mg/dL Calcium 9.3 (8.4-10.2) mg/dL Magnesium 1.7 (1.6-2.3) mg/dL Total Bilirubin 0.7 (0.2-1.3) mg/dL AST 36 (17-59) IU/L ALT 16 (<50) IU/L Alkaline Phosphatase 83 (38-126) U/L Total Creatine Kinase 42 L (55-170) U/L Troponin I < 0.012 < 0.012 (0.01-0.034) ng/mL NT-Pro-B Natriuret Pep 2200 H (<450) pg/mL Total Protein 7.0 (6.3-8.2) g/dL Albumin 4.4 (3.5-5.0) g/dL Globulin 2.6 (1.7-4.1) g/dL Albumin/Globulin Ratio 1.7 (1.0-2.8) Lipase 57 (23-300) U/L SARS-CoV-2 (PCR) Negative (Negative) Influenza A (RT-PCR) Flu a negative (NEGATIVE) Influenza B (RT-PCR) Flu b negative (NEGATIVE) RSV (PCR) Negative (Negative) ECG Data Attestation: I personally reviewed and interpreted this ECG as follows: Interpretation: Atrial fibrillation rate of 95 QRS 88 QTC of [address]-elevation no depression appreciated. Patient has prior from 09/18/2024 which shows AFib with a rate of 105, AST segments appears similar to today's. MDM Narrative Medical decision making narrative: Labs show white count of 5.1 hemoglobin of 13.4 is 14-13 range in the past year, platelets are 158, INR is 1.2, PTT 62, sodium is 132 is in 133-134 in the last year, patient's electrolytes otherwise appropriate BUN 23 creatinine 0.74 glucose is 98 LFTs are normal CK is 42 with a troponin less than 0.012 with a repeat of less than 0.012 and a BNP of 2200 no prior for comparison. COVID/influenza/RSV is negative Chest x-ray is negative for acute cardiopulmonary abnormality. Atrial fib rate of 95, appears similar to prior from September of 2024. 84-year-old male with constant left-sided chest pain x3 days with kind of cardiac workup, patient is anticoagulated takes his medication daily making pulmonary embolism less likely. He has reproducible chest pain on exam, no obvious rash or skin changes the be consistent with shingles. He has not had any recent trauma. Chest x-ray does not show any acute changes patient is felt appropriate for discharge home. Discussed return precautions. He has follow up with the primary care upcoming. Discharge Plan Departure Patient Disposition: Home Clinical Impression: Atypical chest pain Instructions: DI for Atypical Chest Pain Activity Restrictions/Additional Instructions: Follow up with Dr. Rosenberg. You can take acetaminophen up to a 1000 mg every 6 hours as needed for pain. Please return if you have new or concerning changes, fevers, recurrent or worsening chest discomfort, persistent vomiting, lightheadedness or passing out, any new rashes or other new or concerning changes Prescriptions: No Action (DME) Parking Permit... See Rx Instructions .ROUTE .MEDSUPPLY Qty: 1 0RF Rx Instructions: I find this patient to be medically disabled and qualified for Disabled Parking as indicated , and signed, on the Accompanying Disabled Parking Application for Individuals. atenolol 25 mg tablet 25 mg PO DAILY Qty: 90 3RF lisinopril 10 mg tablet 10 mg PO DAILY Qty: 90 1RF levothyroxine 125 mcg tablet 125 mcg PO DAILY Qty: 90 0RF trazodone 50 mg tablet 50 mg PO BEDTIME PRN (Reason: Insomnia) Qty: 90 0RF pantoprazole 40 mg tablet,delayed release (DR/EC) 40 mg PO DAILY Qty: 90 1RF Rx Instructions: Take one tab by mouth daily Pradaxa 150 mg capsule 150 mg PO BID rosuvastatin 5 mg tablet 5 mg PO DAILY Qty: 90 1RF Referrals: Scottie Rosenberg MD [Primary Care Provider, Family Practice] Stand Alone Forms: Patient Portal/API
--- NOTE | 2025-02-28 21:34 | PC.NURSE ---
Pt resting quietly with eyes closed, resps even and not labored. no distress noted at this time. Pt remains connected to cardiac, resp, blood pressure, and pulse ox monitors with alarms on and audible. VS WNL. Call light within reach. Female computer operations analyst remains at bedside.
[2025-02-28] MEDS: ACETAMINOPHEN 325 MG TABLET 975 MG PO (21:54)
== END 2025-02-28 22:04 | disposition home or self-care (01) ==
PROVIDERS: Emergency Provider Emergency Medicine; Family Provider Family Medicine; PCP Family Medicine
DX: R07.89 Other chest pain (principal)
CPT/HCPCS: 36415; 71045; 80053; 82550; 83690; 83735; 83880; 84484; 85025; 85610; 85730; 87637; 93005; 99284